=== PATIENT | male | born 1960 | race Caucasian/White ===

== ENCOUNTER 2019-12-23 08:06 | Outpatient (CLI) | payer OTHER, SELFPAY ==
--- NOTE | 2019-12-23 08:30 | CT_ITS ---
WS: [id number] CT CHEST TECHNIQUE: Noncontrast CT of the chest with coronal and sagittal reformatted images. CLINICAL INFORMATION: Shortness of breath COMPARISON: CT November 06, 2017 DLP: 1026.[address] scans at [facility] use at least one of these dose optimization techniques: automat ed exposure control; mA and/or kV adjustment per patient size (includes targeted exams where dose is matched to clinical indication); or iterative reconstruction. FINDINGS: Stable centrilobular emphysematous changes worse in the upper lobes. Previously described tree-in-bud infiltrates in the left lower lobe have resolved. Slight atelectasis in the right lower lobe. No milena picious pulmonary parenchymal abnormalities. No acute pulmonary infiltrates. No consolidation or pleu ral fluid. Aortic calcification. Coronary calcification. Gallbladder is contracted with cholelithiasis. Lobulati on gallbladder fundus may represents polyp or gallstone is unchanged. This could followed up with ult rasound. Stable left adrenal adenoma measuring 3.1 cm unchanged. Moderate thoracic kyphosis with anterior hypertrophic changes. CT/CT chest wo con [id number] IMPRESSION: 1. Centrilobular emphysematous changes. No suspicious pulmonary parenchymal ab normalities. 2. Left lower lobe infiltrates have resolved. 3. No mediastinal or hilar lymphadenopathy. 4. Gallbladder is contracted with cholelithiasis. Lobulation at the gallbladde r fundus may represent gallbladder polyp. This can be further evaluated with ul trasound. 5. Stable left adrenal lesion likely adenoma measuring 3.1 cm unchanged. 6. Vascular calcification including coronary.
== END 2019-12-23 08:07 | disposition home or self-care (01) ==
LOC: RADWPI 08:07
PROVIDERS: Family Provider Nurse Practitioner; PCP Nurse Practitioner; Visit Provider Internal Medicine Critical Care Medicine
DX: R06.02 Shortness of breath (principal); J43.8 Other emphysema; K80.11 Calculus of gallbladder with chronic cholecystitis with obstruction; I25.10 Atherosclerotic heart disease of native coronary artery without angina pectoris
CPT/HCPCS: 71250

== ENCOUNTER 2020-01-18 11:00 | Outpatient (CLI) | payer OTHER, SELFPAY | END 2020-01-18 11:01 | disposition home or self-care (01) | LOC: SLEEP 01-19 10:38 | PROVIDERS: Family Provider Nurse Practitioner; PCP Nurse Practitioner; Visit Provider Internal Medicine Critical Care Medicine | DX: J44.9 Chronic obstructive pulmonary disease, unspecified (principal) | CPT/HCPCS: 94762 ==

== ENCOUNTER 2020-01-30 13:12 | Outpatient (CLI) | payer OTHER, SELFPAY ==
--- NOTE | 2020-01-30 13:30 | USCV_ITS ---
Sam Henson Age: 59 Gender: M : 1960 Exam Date: 01/30/2020 13:33 Ordering Phys: Fredrick Arias MD Technologist: Ashley Lr Exam Location: [facility] [place] Indication: sob BP: 126 / 67 HR: 68 Rhythm: Sinus Technical Quality: Adequate MEASUREMENTS (Male / Female) Normal Values 2D ECHO LV Diastolic Diameter PLAX 4.4 cm 4.2 - 5.9 / 3.9 - 5.3 cm LV Systolic Diameter PLAX 3.3 cm LV Chamber Size 3.2 cm IVS Diastolic Thickness 1.2 cm 0.6 - 1.0 / 0.6 - 0.9 cm IVS Systolic Thickness 1.6 cm LVPW Diastolic Thickness 2.3 cm 0.6 - 1.0 / 0.6 - 0.9 cm LVPW Systolic Thickness 2.2 cm RV Chamber Size 3.0 cm LVOT Diameter 2.0 cm LV Ejection Fraction 2D Teich 51.0 % LV Ejection Fraction MOD 2C 36.1 % LV Ejection Fraction 2C AL 36.6 % LA Diameter 4.4 cm LA Width 2.9 cm LA Height 4.5 cm RA Width 2.5 cm RA Height 4.4 cm Aorta at Sinotubular Diameter 3.1 cm M-MODE LV Diastolic Diameter MM 5.8 cm 4.2 - 5.9 / 3.9 - 5.3 cm LV Systolic Diameter MM 4.1 cm LV Ejection Fraction MM Teich 57.0 % IVS Diastolic Thickness MM 0.9 cm 0.6 - 1.0 / 0.6 - 0.9 cm IVS Systolic Thickness MM 1.2 cm LVPW Diastolic Thickness MM 0.9 cm 0.6 - 1.0 / 0.6 - 0.9 cm LVPW Systolic Thickness MM 1.4 cm Aortic Annulus Diameter 3.8 cm LA Ao Ratio MM 1.1 MV E Point Septal Separation 0.7 cm DOPPLER AV Peak Velocity 131.0 cm/s LVOT Peak Velocity 99.0 cm/s AV Area Cont Eq vti 2.9 cm squared AV Area Cont Eq pk 2.4 cm squared MV Area PHT 3.3 cm squared Mitral E to A Ratio 1.4 MV E' Velocity 13.0 cm/s Mitral E to MV E' Ratio 5.7 Mitral E to LV E' Lateral Ratio 5.3 Mitral E to LV E' Septal Ratio 6.2 TR Peak Velocity 313.0 cm/s TR Peak Gradient 39.2 mmHg TV Peak E Velocity 66.0 cm/s Right Atrial Pressure 3.0 mmHg Pulmonary Artery Systolic Pressu 42.2 mmHg PV Peak Velocity 80.0 cm/s RV Acceleration Time 0.1 s RV Ejection Time 0.3 s RV AcT/ET 0.3 FINDINGS Left Ventricle Normal left ventricular size and systolic function, EF 60%. No regional wall motion abnormalities. Right Ventricle Possibly of normal RV size and ejection fraction Right Atrium Possibly of normal size Left Atrium Normal left atrial size. Mitral Valve No gross abnormalities noted Aortic Valve Thickened aortic valve. Tricuspid Valve Mild tricuspid valve regurgitation. Pulmonic Valve Pulmonic valve not well visualized. Pericardium No pericardial effusion. Aorta Normal size aortic root and proximal ascending aorta. CONCLUSIONS Normal left ventricular size and systolic function, EF 60%. No regional wall motion abnormalities. Thickened aortic valve. Mild tricuspid valve regurgitation. Mild pulmonary hypertension with an estimated pulmonary artery peak systolic pressure of 42 mmHg There is no pericardial effusion. There are no intracardiac masses. There are no prior echocardiogram studies to compare. Dr Sherif Orozco MD FACC (Electronically Signed) Final Date: 30 January 2020 18:32 S
== END 2020-01-30 13:13 | disposition home or self-care (01) ==
LOC: RAD 13:15
PROVIDERS: PCP Nurse Practitioner; Visit Provider Internal Medicine Critical Care Medicine
DX: R06.02 Shortness of breath (principal); I08.2 Rheumatic disorders of both aortic and tricuspid valves; I27.20 Pulmonary hypertension, unspecified
CPT/HCPCS: 93306

== ENCOUNTER 2020-02-03 07:17 | Outpatient (CLI) | payer OTHER, SELFPAY ==
[2020-02-03 08:31] VITALS: O2SAT 94
--- NOTE | 2020-02-03 12:35 | PFTS_ITS ---
Date of Study:02/03/20 Date of Dictation: MECHANICS: Forced vital capacity (FVC) is reduced. Forced expiratory volume in one second (FEV1) is reduced. FEV1/FVC is reduced. FLOW VOLUME LOOP: Reduced flow at all lung volumes with significant scooping. LUNG VOLUMES: Total lung capacity (TLC) is reduced. Residual volume (RV) is increased. DIFFUSING CAPACITY FOR CARBON MONOXIDE: Moderately reduced. INTERPRETATION: The pulmonary function tests are consistent with severe obstruction. There is also a component of restriction as evidenced by reduced total lung capacity. There is evidence of air trapping. Gas exchange (DLCO) is moderately reduced. MTDD
== END 2020-02-03 07:18 | disposition home or self-care (01) ==
LOC: RT 07:18
PROVIDERS: PCP Nurse Practitioner; Visit Provider Internal Medicine Critical Care Medicine
DX: J44.9 Chronic obstructive pulmonary disease, unspecified (principal)
CPT/HCPCS: 94060; 94726; 94729; J7611

== ENCOUNTER 2020-02-22 22:10 | Inpatient (IN) | payer OTHER, SELFPAY ==
[2020-02-22 22:21] VITALS: BMI 36.8
--- NOTE | 2020-02-22 22:23 | XR_ITS ---
WS: [id number] CHEST XRAY TECHNIQUE: Portable chest. CLINICAL INFORMATION: Chest pain COMPARISON: FINDINGS: Heart: Normal cardiac silhouette. Lungs: Subsegmental atelectasis right midlung. Chronic emphysematous changes. Bones: Normal visualized bony structures. XR/XR chest 1V portable [id number] IMPRESSION: Subsegmental atelectasis right midlung. No focal pneumonia.
--- NOTE | 2020-02-22 22:23 | ECG_ITS ---
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 Measurements Intervals [place] Rate: 82 P: 46 IN: 176 QRS: 9 QRSD: 89 T: 40 QT: 347 QTc: 407 Interpretive Statements SINUS RHYTHM No previous ECG available for comparison Electronically Signed On 02-24-2020 0:07:35 CDT by Sherif Orozco M.D. [id number]
[2020-02-22 22:37] VITALS: BP 131/84; PULSE 81; RESP 27; O2SAT 94
[2020-02-22 22:45] VITALS: BP 118/74; PULSE 82; RESP 20; O2SAT 93
[2020-02-22] MEDS: aspirin 325 mg Tablet PO (22:52)
[2020-02-22] MEDS: nitroglycerin 0.4 mg sublingual Tablet SUBLINGUAL (22:53)
[2020-02-22 22:57] LABS: Basophils # 0.1 10^3/uL (0.0-0.1); Basophils % 0.8 %; Eosinophils # 0.3 10^3/uL (0.0-0.8); Eosinophils % 3.4 %; Hematocrit 50.7 % (42.0-52.0); Hemoglobin 16.6 g/dL (11.7-16.6); Lymphocytes # 2.7 10^3/uL (0.8-4.8); Mean Corpuscular HGB Conc 32.7 g/dL (30.0-36.0); Mean Corpuscular Hemoglobin 31.3 pg (28.0-34.0); Mean Corpuscular Volume 95.7 fL (80-94); Monocytes # 1.2 10^3/uL (0.2-0.9); Monocytes % 13.3 %; Neutrophils # 4.71 10^3/uL (1.8-7.7); Neutrophils % 51.6 %; Nucleated Red Blood Cells % 0 %; Platelet Count 292 10^3/cmm (130-400); Red Cell Distribution Width 12.5 % (12.1-15.1); White Blood Count 9.1 10^3/uL (4.0-10.0)
[2020-02-22 23:00] VITALS: BP 111/80; PULSE 92; O2SAT 96
[2020-02-22 23:11] LABS: INR 0.96 (0.8-1.2)
[2020-02-22 23:15] VITALS: BP 152/99; PULSE 86; O2SAT 97
--- NOTE | 2020-02-22 23:26 | ED_ITS ---
HPI - Chest Pain General: Chief Complaint: Chest Pain Stated Complaint: HEART PROBLEMS Time Seen by Provider: 02/22/20 22:22 Source: patient Mode of arrival: ambulatory Limitations: no limitations History of Present Illness: HPI narrative: Mr. Henson is a nice 59-year-old male who comes in complaining of 2 issues. First is that his chest discomfort he feels a pressure in his chest. He has associated diaphoresis, shortness of breath with this. At times the discomfort will radiate up to his throat and jaws. Patient is currently undergoing a work-up by Dr. Orozco for palpitations. He had had a episode of 5 to 10 minutes of palpitations today. He is currently wearing a event monitor for this. Patient states his discomfort in his chest is very mild right now. He does not feel the palpitations. He gets lightheaded with them but does not have a syncopal spell. He is not tried anything for this to make it better or worse. He denies any other complaints or concerns. Associated symptoms: Reports palpitations; Deny abdominal pain, diaphoresis, dyspnea, fever(s), nausea, syncope or vomiting Review of Systems Const: Denies: fever(s), chills, body aches, fatigue, malaise or diaphoresis Eyes: Denies: change in vision, blurry vision, blind spots, photophobia, eye discharge or eye redness ENMT: Denies: throat pain, odynophagia, hoarseness, swelling of lips/tongue, oral sores, ear or mastoid pain, ear discharge, change in hearing or nasal discharge Card: Reports: chest pain, palpitations and lightheadedness; Denies: irregular heart rhythm, edema, syncope, pre-syncope, dyspnea on exertion or orthopnea Resp: Denies: dyspnea, productive cough, non-productive cough, wheezing, hemoptysis or chest congestion GI: Denies: abdominal pain, nausea, vomiting, hematemesis, coffee ground emesis, heartburn, diarrhea, constipation, GI cramping, hematochezia or melena : Denies: flank pain, dysuria, urinary frequency, urinary urgency or hematuria Musc: Denies: neck pain, back pain, extremity pain, extremity swelling, joint pain, joint swelling, joint redness, joint warmth or joint stiffness Skin/Breast: Denies: rash, pruritus, erythema, skin tenderness or jaundice Neuro: Denies: headache(s), numbness in extremities, weakness in extremities, sensory changes, lack of coordination, difficulty walking, dizziness, vertigo, confusion, Slurred speech present or seizure-like activity Dimitry/Lymph: Denies: easy bruising, easy bleeding, petechiae, purpura or enlarged lymph nodes All/Imm: Denies: urticaria, throat swelling, tongue swelling, facial swelling or acute wheezing PFSH ED PFSH: Medical History Atypical angina COPD (chronic obstructive pulmonary disease) HTN (hypertension) Obstructive sleep apnea Palpitations PND (post-nasal drip) Surgical History H/O hernia repair H/O knee surgery History of surgical removal of ganglion cyst Family History Father Cancer Mother Cancer Family/Other Stroke Grandmother Stroke Dementia Grandfather CAD (coronary artery disease) Social History Smoking and tobacco status: current every day smoker cigarettes Packs smoked per day: 0.5 Years cigarettes smoked: 40 [ Other cigarette details: Hx of 1 PPD x 25 Years ] Alcohol intake: never Lives independently: Yes Household members: spouse and family Marital status: Current occupational status: employed Current occupation: [employer] Current occupational exposures/hazards: No History of recent travel: No Current gender identity: Male Physical Exam Const: COMMON NORMALS: no acute distress, patient oriented x3, no limitations, healthy appearing and well nourished GENERAL APPEARANCE: cooperative, well kempt and well developed HENMT: COMMON NORMALS: normocephalic, atraumatic, external ears normal, EAC's normal and Normal external nose present HEAD & SCALP: normal to inspection, normocephalic and atraumatic FACE & SINUS: normal facial exam and face symmetric NOSE: Normal external nose present and Normal nares present EXTERNAL EAR: Yes external ears normal EXTERNAL AUDITORY CANAL: EAC's normal MOUTH: Normal oral and palatal mucosa present, lip normal and tongue normal Eye: COMMON NORMALS: Equal, round and reactive pupils present and conjunctivae normal GENERAL EYE: appearance normal, both eyes and all related structures ALIGNMENT: Yes alignment normal PERIORBITAL: periorbital findings normal EYELID: eyelids normal CONJUNCTIVA: Yes conjunctivae normal SCLERA: sclerae normal PUPIL: Yes Equal, round and reactive pupils present Neck/C-Spine: COMMON NORMALS: full ROM, no lymphadenopathy, supple, no meningeal signs and no JVD GENERAL: Yes normal visual inspection and Yes trachea midline Chest: COMMONS NORMALS: normal inspection of the chest and normal palpation of entire chest wall Resp: COMMON NORMALS: normal respiratory effort, No retractions and No use of accessory muscles EFFORT & INSPECTION: Yes able to speak in complete sentences and Yes symmetric chest movement AUSCULTATION: no crackles, no rales, no rhonchi and no wheezes Cardio: COMMON NORMALS: no JVD, regular rate, regular rhythm, S1 normal heart sound present and S2 normal heart sound present RATE: regular rate RHYTHM: regular rhythm HEART SOUNDS: S1 normal heart sound present, S2 normal heart sound present, no click, no gallops, no murmurs, no rubs and abnormal split S2 GI: COMMON NORMALS: Soft to palpation and No hepatosplenomegaly present PALPATION: Yes Soft to palpation, No Tenderness to palpation present (GI), No Guarding due to palpation present (GI), No Rigid due to palpation, Yes No hepatosplenomegaly present, No Hernia present, No Palpable mass present and No Pulsatile mass present : COMMON NORMALS: Yes no CVA tenderness BLADDER/KIDNEY EXAM: Yes no CVA tenderness Back/Pelvis: COMMON NORMALS: no CVA tenderness, thoracic and lumbar spine normal to inspection, no thoracic nor lumbar tenderness and thoraco-lumbar ROM normal Extremity: COMMON NORMALS: normal to inspection, full ROM, capillary refill normal, no joint enlargement, no clubbing, cyanosis or edema and no calf tenderness Neuro: COMMON NORMALS: patient oriented x3, CN's II-XII intact bilaterally, moves all extremities, no focal motor deficits and no sensory deficits noted MENINGEAL SIGNS: Yes no meningeal signs SPEECH: speech normal Psych: COMMON NORMALS: mental status grossly normal, Normal thought process present, cooperative, normal affect, speech normal and activity/motor behavior normal APPEARANCE: Yes well kempt SPEECH: Yes normal speech THOUGHT PROCESS: Normal thought process present Skin: COMMON NORMALS: no rashes or lesions noted, turgor normal, no jaundice, no petechiae and no mottling GENERAL SKIN EXAM: no rashes or lesions noted and turgor normal Course Vital Signs: Vital signs: Vital Signs Pulse Rate 74 02/23/20 01:59 Respiratory Rate 18 02/23/20 01:59 Blood Pressure 111/70 02/23/20 01:59 Pulse Oximetry 97 02/23/20 01:59 MDM - Chest Pain MDM Narrative: Medical decision making narrative: Patient had a 22-second run of ventricular tachycardia per his event monitor. I reviewed the case with Dr. Pizano and Ernesto agreed to admit and consult respectively. The patient is currently chest pain-free and Dr. Orozco hysterectomy to start amiodarone drip which I have done. Lab Data: Attestation: I reviewed the patient's lab results. Labs: Lab Results 02/22/20 02/22/20 02/22/20 Range/Units 22:20 22:33 22:33 WBC 9.1 (4.0-10.0) 10^3/ uL RBC 5.30 (4.1-5.3) 10^6/u L Hgb 16.6 (11.7-16.6) g/dL Hct 50.7 (42.0-52.0) % MCV 95.7 H (80-94) fL MCH 31.3 (28.0-34.0) pg MCHC 32.7 (30.0-36.0) g/dL RDW 12.5 (12.1-15.1) % Plt Count 292 (130-400) 10^3/c mm MPV 9.0 (7.4-10.4) fL Neut % (Auto) 51.6 % Lymph % (Auto) 30.0 % Simpson % (Auto) 13.3 % Eos % (Auto) 3.4 % Baso % (Auto) 0.8 % Neut # (Auto) 4.71 (1.8-7.7) 10^3/u L Lymph # (Auto) 2.7 (0.8-4.8) 10^3/u L Simpson # (Auto) 1.2 H (0.2-0.9) 10^3/u L Eos # (Auto) 0.3 (0.0-0.8) 10^3/u L Baso # (Auto) 0.1 (0.0-0.1) 10^3/u L Nucleated RBC % (a uto) 0 % Nucleated RBCs # 0.0 /100WBC PT 13.10 (10.5-13.3) SECO NDS INR 0.96 (0.8-1.2) Sodium (136-145) mmol/L Potassium (3.5-5.1) mmol/L Chloride (98-107) mmol/L Carbon Dioxide (22-29) mmol/L Anion Gap (5-19) BUN (8-23) mg/dL Creatinine (0.7-1.2) mg/dL GFR Calculation (90-130) mL/min Glucose (65-115) mg/dL Calculated Osmolal ity (285-295) mOsm/k g Calcium (8.5-10.5) mg/dL Magnesium (1.7-2.3) mg/dL Total Bilirubin (0.15-1.2) mg/dL AST (0-40) U/L ALT (0-41) U/L Alkaline Phosphata se (40-130) IU/L Troponin T Baselin e (0-15) ng/L Troponin T 120 Min [place] (0-15) ng/L Delta Troponin T (0-10) ABS# Total Protein (6.6-8.7) g/dL Albumin (3.5-5.2) g/dL Globulin (1.3-4.6) g/dL Lipase (13-60) U/L TSH (0.27-4.20) uIU/ mL Free T4 (0.82-1.77) ng/d L Urine Color Yellow (Yellow) Urine Appearance Clear (CLEAR) Urine pH 6 (5-7) Ur Specific Gravit y 1.020 (1.005-1.030) Urine Protein Neg (Negative) Urine Glucose (UA) Norm (Normal) Urine Ketones Negative (Negative) Urine Blood Neg (Negative) Urine Nitrate Negative (Negative) Urine Bilirubin Neg (NEGATIVE) Urine Urobilinogen Norm (Negative) mg/dL Ur Leukocyte Lam[place] Negative (Negative) Urine RBC Rare (0-2) /hpf Urine WBC Rare (0-5) /hpf Ur Squamous Epith Cells Rare (0-5) Urine Bacteria Trace (NONE) Urine Mucus 1+ 02/22/20 02/22/20 02/23/20 Range/Units 22:33 22:33 00:16 WBC (4.0-10.0) 10^3/ uL RBC (4.1-5.3) 10^6/u L Hgb (11.7-16.6) g/dL Hct (42.0-52.0) % MCV (80-94) fL MCH (28.0-34.0) pg MCHC (30.0-36.0) g/dL RDW (12.1-15.1) % Plt Count (130-400) 10^3/c mm MPV (7.4-10.4) fL Neut % (Auto) % Lymph % (Auto) % Simpson % (Auto) % Eos % (Auto) % Baso % (Auto) % Neut # (Auto) (1.8-7.7) 10^3/u L Lymph # (Auto) (0.8-4.8) 10^3/u L Simpson # (Auto) (0.2-0.9) 10^3/u L Eos # (Auto) (0.0-0.8) 10^3/u L Baso # (Auto) (0.0-0.1) 10^3/u L Nucleated RBC % (a uto) % Nucleated RBCs # /100WBC PT (10.5-13.3) SECO NDS INR (0.8-1.2) Sodium 141 (136-145) mmol/L Potassium 4.0 (3.5-5.1) mmol/L Chloride 102 (98-107) mmol/L Carbon Dioxide 27 (22-29) mmol/L Anion Gap 16.0 (5-19) BUN 13 (8-23) mg/dL Creatinine 0.7 (0.7-1.2) mg/dL GFR Calculation 115.0 (90-130) mL/min Glucose 114 (65-115) mg/dL Calculated Osmolal ity 289 (285-295) mOsm/k g Calcium 9.2 (8.5-10.5) mg/dL Magnesium 2.0 (1.7-2.3) mg/dL Total Bilirubin 0.4 (0.15-1.2) mg/dL AST 20 (0-40) U/L ALT 20 (0-41) U/L Alkaline Phosphata se 67 (40-130) IU/L Troponin T Baselin e 14 (0-15) ng/L Troponin T 120 Min [place] 13.35 (0-15) ng/L Delta Troponin T -0.65 L (0-10) ABS# Total Protein 7.0 (6.6-8.7) g/dL Albumin 4.5 (3.5-5.2) g/dL Globulin 2.5 (1.3-4.6) g/dL Lipase 44 (13-60) U/L TSH 1.30 (0.27-4.20) uIU/ mL Free T4 1.54 (0.82-1.77) ng/d L Urine Color (Yellow) Urine Appearance (CLEAR) Urine pH (5-7) Ur Specific Gravit y (1.005-1.030) Urine Protein (Negative) Urine Glucose (UA) (Normal) Urine Ketones (Negative) Urine Blood (Negative) Urine Nitrate (Negative) Urine Bilirubin (NEGATIVE) Urine Urobilinogen (Negative) mg/dL Ur Leukocyte [place] (Negative) Urine RBC (0-2) /hpf Urine WBC (0-5) /hpf Ur Squamous Epith Cells (0-5) Urine Bacteria (NONE) Urine Mucus Imaging Data^: CXR: My impression: No acute cardiopulmonary findings. EKG Data^: EKG 1: Attestation: I personally reviewed and interpreted this EKG as follows: EKG interpretation date: 02/22/20 EKG interpretation time: 22:36 Interpretation: Normal sinus rhythm at 82 beats a minute, no acute ST or T wave changes. 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
[2020-02-22 23:30] VITALS: BP 141/98; PULSE 77; RESP 25; O2SAT 97
[2020-02-22 23:33] LABS: Bacteria Urine TRACE; Bilirubin Urine Neg (NEGATIVE); Blood Urine Neg (Negative); Glucose Urine UA Norm (Normal); Ketones Urine Negative (Negative); Leukocyte Esterase Urine Negative (Negative); Mucus Urine 1+; Nitrate Urine Negative (Negative); Protein Urine Neg (Negative); RBC Urine RARE /hpf (0-2); Squamous Epithelial Cell Urine RARE (0-5); Urine Appearance Clear (CLEAR); Urine Color Yellow (Yellow); Urobilinogen Urine Norm (Negative); WBC Urine RARE /hpf (0-5); pH Urine 6 (5-7)
[2020-02-22] MEDS: nitroglycerin 1 gm/inch oint Pkt 1 INCH TOPICAL (23:36)
[2020-02-22 23:45] VITALS: BP 164/103; PULSE 91; RESP 22; O2SAT 94
[2020-02-22 23:46] LABS: Troponin(5th) Baseline 14 ng/L (0-15)
[2020-02-22 23:47] LABS: Alanine Aminotransferase 20 U/L (0-41); Albumin Level 4.5 g/dL (3.5-5.2); Alkaline Phosphatase 67 IU/L (40-130); Aspartate Amino Transferase 20 U/L (0-40); Blood Urea Nitrogen 13 mg/dL (8-23); Calcium 9.2 mg/dL (8.5-10.5); Carbon Dioxide 27 mmol/L (22-29); Chloride 102 mmol/L (98-107); Globulin 2.5 g/dL (1.3-4.6); Glucose 114 mg/dL (65-115); Lipase 44 U/L (13-60); Osmolality Calculated 289 mOsm/kg (285-295); Sodium 141 mmol/L (136-145); Total Bilirubin 0.4 mg/dL (0.15-1.2)
[2020-02-23] VITALS (54 sets, daily range): BP systolic 80–148; BP diastolic 37–98; PULSE 59–89; RESP 12–93; TEMP 35.3–37.1; O2SAT 3–98
[2020-02-23 00:13] LABS: Free T4 Free Thyroxine 1.54 ng/dL (0.82-1.77)
--- NOTE | 2020-02-23 00:23 | ECG_ITS ---
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 Measurements Intervals [place] Rate: 70 P: [place]: -1 QRS: 3 QRSD: 78 T: 30 QT: 362 QTc: 392 Interpretive Statements Sinus rhythm with frequent supraventricular ectopics/PACs ABNORMAL RHYTHM ECG No previous ECG available for comparison Electronically Signed On 02-24-2020 1:33:49 CDT by Sherif Orozco M.D. [id number]
[2020-02-23 00:36] LABS: Troponin 5 2HR 13.35 ng/L (0-15); Troponin 5 2HR Delta -0.65 ABS# (0-10)
--- NOTE | 2020-02-23 01:12 | PM.HP ---
Providers/Chief Complaint Primary Care Provider: SIRENA Erickson Chief Complaint: HEART PROBLEMS History of Present Illness Sam Henson is a 59 year old gentleman with COPD, obstructive sleep apnea, current smoker, HTN, episodes of chest pressure, fatigability on exertion, intermittent palpitations, has been following up with cardiology Dr. Orozco, they have been arranging for a stress test for him, although he has not had one yet. He is also been set up with an event monitor on Thursday. He reports having several episodes of palpitations during the past week, including 1 today. This reportedly on the monitor was noted to be a 22-second run of VT. he denies any current chest pain. He has had no syncope. He is noted in sinus rhythm on EKG here. Troponin baseline in 2-hour follow-up are normal. His electrolytes including potassium magnesium are normal. Thyroid function test normal. At home he takes metoprolol for hypertension. Given prolonged run of ventricular tachycardia his brim and crown presser Dr. Orozco requested observation in the hospital, initiation of amiodarone, and will see him tomorrow. Patient otherwise reports that he has been having chronic cough for months, and reports currently has been noticing productive sputum of yellow color. He reports he gets very easily dyspneic, now with even mild incline gradient. He reports he is not normally on oxygen during the day, however, does connect his CPAP at night to 2 L. He does report sometimes getting dyspneic during the day he puts on his CPAP/oxygen, and reports that this makes his symptoms better, even if it is just for a short time. He follows with Dr. Arias in office for his pulmonary problems. He understands that he needs to stop smoking, however, currently still smokes 1 pack/day. Review of Systems Const: Denies: fever(s), chills, body aches or malaise Eyes: Denies: change in vision or eye redness ENMT: Denies: throat pain, oral sores or ear or mastoid pain Card: Reports: palpitations, dyspnea on exertion and other (Intermittent episodes of chest pressure, sometimes with exertion, sometimes without specific trigger.); Denies: chest pain, edema, pre-syncope or orthopnea Resp: Reports: productive cough; Denies: dyspnea, change in phlegm color or hemoptysis GI: Denies: abdominal pain, nausea, vomiting, diarrhea, constipation, hematochezia or melena : Denies: flank pain, difficulty urinating, urinary frequency or hematuria Musc: Denies: back pain, joint swelling or joint redness Skin/Breast: Denies: rash, sores or new lesions Neuro: Denies: headache(s), numbness in extremities, weakness in extremities, dizziness, confusion or seizure-like activity Endo: Denies: polyuria or polydipsia Dimitry/Lymph: Denies: easy bleeding or purpura All/Imm: Denies: urticaria, throat swelling or tongue swelling Medications/Allergies Home Medications Medication Instructions Recorded Confirmed Last Taken Type lisinopril 10 1 tab PO DAILY 12/12/19 02/22/20 02/22/20 History mg-hydrochlorothiazide 12.5 mg tablet budesonide-formoterol HFA 160 2 puff INHALATION BID #10.2 gm 01/04/20 02/22/20 02/22/20 Rx mcg-4.5 mcg/actuation aerosol inhaler tiotropium bromide 18 mcg capsule 1 cap INHALATION DAILY #30 inh 01/04/20 02/22/20 02/22/20 Rx with inhalation device albuterol sulfate 2.5 mg INHALATION Q4H PRN #540 ml 01/25/20 02/22/20 02/22/20 Rx albuterol sulfate 90 mcg/actuation 2 puff INHALATION Q6H PRN #18 gm 01/25/20 02/22/20 02/22/20 Rx aerosol inhaler metoprolol tartrate 25 mg tablet 25 mg PO BID #180 tab 02/21/20 02/22/20 Unknown Rx Allergies Allergy/AdvReac Type Severity Reaction Status Date / Time ciprofloxacin Allergy ALGY-Hives Verified 12/27/19 16:16 PFSH Acute PFSH: Medical History Atypical angina COPD (chronic obstructive pulmonary disease) HTN (hypertension) Obstructive sleep apnea Palpitations PND (post-nasal drip) Surgical History H/O hernia repair H/O knee surgery History of surgical removal of ganglion cyst Family History Father Cancer Mother Cancer Family/Other Stroke Grandmother Stroke Dementia Grandfather CAD (coronary artery disease) Social History Smoking and tobacco status: current every day smoker cigarettes Packs smoked per day: 0.5 Years cigarettes smoked: 40 [ Other cigarette details: Hx of 1 PPD x 25 Years ] Alcohol intake: never Lives independently: Yes Household members: spouse and family Marital status: Current occupational status: employed Current occupation: [employer] Current occupational exposures/hazards: No History of recent travel: No Current gender identity: Male Vitals/I&O/Wt Last Vital Signs Pulse 77 02/23/20 00:45 Resp 25 H 02/23/20 00:45 BP 104/71 02/23/20 00:45 Pulse Ox 97 02/23/20 00:45 02/22/20 02/22/20 02/23/20 14:59 22:59 06:59 Intake Total 103 / 103 Balance 103 / 103 Weight last 48 hrs Weight 106.594 kg Physical Exam Const: COMMON NORMALS: no acute distress and patient oriented x3 NUTRITIONAL APPEARANCE: obese HENMT: COMMON NORMALS: oropharynx normal Neck/C-Spine: COMMON NORMALS: no JVD Resp: COMMON NORMALS: normal respiratory effort AUSCULTATION: wheezes and diminished lung sounds Cardio: COMMON NORMALS: no JVD, regular rhythm, S1 normal heart sound present, S2 normal heart sound present and No murmurs present (Cardio) RHYTHM: regular rhythm HEART SOUNDS: S1 normal heart sound present and S2 normal heart sound present GI: COMMON NORMALS: Normal to inspection, nondistended, normoactive bowel sounds present, Soft to palpation and non-tender PALPATION: Yes Soft to palpation Extremity: COMMON NORMALS: no joint enlargement and no pedal edema Neuro: COMMON NORMALS: patient oriented x3 and moves all extremities Skin: COMMON NORMALS: no rashes or lesions noted GENERAL SKIN EXAM: no rashes or lesions noted Data : 02/22/20 22:33 02/22/20 22:33 A&P Assessment and plan (1) Ventricular tachycardia: Reported brown of 22-second VT noted on security monitor. With recurrent episodes of palpitations. Pending evaluation by cardiology. Recommendation started on amiodarone drip. Continue metoprolol at this time. Electrolytes are normal including potassium, magnesium. Thyroid function is normal. He is having occasional chest pressure episodes, however, currently asymptomatic. First and 2-hour troponin are normal. EKG without signs of acute ischemia. Telemetry. Echocardiogram 01/29 with normal ejection fraction, noted mild pulmonary hypertension, peak systolic PA pressure 42 mmHg. With his recent episodes of worsening dyspnea on exertion, episodes of dyspnea during the day during which he gets relief from wearing CPAP with oxygen, may consider that he may be getting hypoxic episodes, possibly even triggering her his arrhythmia, and long-term may need to be set up with oxygen with exertion. This will need to be evaluated at discharge, to also assess response for treatment of COPD exacerbation. Status: Acute (2) Chest discomfort: Intermittent episodes of chest pressure, symptoms triggered by exertion, sometimes without specific trigger. Central, nonradiating. Reports has been working with cardiology and insurance to set up for stress testing. At this time he is not symptomatic. First into our troponin, and EKG without suggestion of acute ischemia. As mentioned above, at least in part this may also be secondary to his pulmonary disease, including COPD, possibly pulmonary hypertension. Also she is still current smoker, smoking 1 pack/day. Status: Acute (3) Dyspnea on exertion: With underlying COPD, with ROWDY, wearing nightly CPAP with 2 L of oxygen. He is also still a smoker. Suspected also underlying pulmonary hypertension. He follows with Dr. Arias in office. At this time no sign of acute ischemia, complete troponin EKG series. Discussed with him definitely would benefit from smoking cessation. We will treat COPD exacerbation at this time. On discharge would benefit from assessment for home O2, possibly with exertion. Status: Acute (4) COPD exacerbation: Acute exacerbation of COPD, with recently progressive dyspnea, especially on exertion, but also with chronic cough, intermittent, going on for months, recently productive of yellow sputum. We will go ahead and treat him for COPD exacerbation. Rocephin. Prednisone. Breathing treatments. Oxygen support. Status: Acute (5) Obstructive sleep apnea: Nightly CPAP and O2 2L Status: Acute Additional A&P Information Other chronic medical conditions. Attestations Medical Necessity Statement*: Admission of over 2 midnights is continued for assessment management of VTE, with intermittent episodes of chest pressure, as well as with COPD exacerbation, with chronic underlying lung disease, including COPD, ROWDY, possible pulmonary hypertension. Coding Level of Care Code Acute Metaphysician for Chg Fwd Diagnoses Ventricular tachycardia I47.2 Chest discomfort R07.89 Dyspnea on exertion R06.00 COPD exacerbation J44.1 Obstructive sleep apnea G47.33
--- NOTE | 2020-02-23 02:10 | PC.NURSE ---
Admit Note Arrived to floor from ER via gurney, ambulated to bed. Alert and oriented X 4. Breathing is even and non-labored on 2 L NC. Reports shortness of breath on exertion. Denies chest pain on admit. Sinus rhythm occasional pvc , rate 60's-70's. Amiodarone infusing on arrival to unit. Lungs clear throughout. Pt wearing 21 day halter monitor, reports it was placed thursday by Dr. Orozco office. Pt denies wanting to get into hospital gown. Oriented to room and call light.
[2020-02-23] MEDS: ipratropium-albuterol 3 mL Neb INHALATION ×4 (02:49→21:03)
[2020-02-23] MEDS: predniSONE 20 mg Tablet 40 MG PO ×2 (02:59→09:29)
--- NOTE | 2020-02-23 02:59 | PC.NURSE ---
Heparin Pt refused heparin injection. Pt educated on use,dosage, and adverse effects. Wants to talk to Dr. Orozco in AM regarding medication.
[2020-02-23] MEDS: sodium chloride 0.9% 1,000 ML 100 ML IV (03:00)
[2020-02-23] MEDS: cefTRIAXone 1,000 MG in sodium chloride 0.9% (plus) 50 ML 100 MG IV (03:01)
--- NOTE | 2020-02-23 04:23 | ECG_ITS ---
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 Measurements Intervals [place] Rate: 64 P: 55 ID: [id number] QRS: 18 QRSD: 87 T: 42 QT: 407 QTc: 421 Interpretive Statements SINUS RHYTHM Compared to ECG 02/23/2020 01:57:14 Atrial fibrillation no longer present Electronically Signed On 02-24-2020 1:34:42 CDT by Sherif Orozco M.D. [email or web address] centerHydrelismer[facility] health st[facility] hospitalThe Football Social Club/store/[id number]
[2020-02-23 05:10] LABS: Basophils # 0.1 10^3/uL (0.0-0.1); Basophils % 0.7 %; Eosinophils # 0.3 10^3/uL (0.0-0.8); Hematocrit 46.3 % (42.0-52.0); Lymphocytes # 2.1 10^3/uL (0.8-4.8); Lymphocytes % 24.4 %; Mean Corpuscular HGB Conc 32.4 g/dL (30.0-36.0); Mean Corpuscular Hemoglobin 31.8 pg (28.0-34.0); Mean Corpuscular Volume 98.1 fL (80-94); Mean Platelet Volume 8.9 fL (7.4-10.4); Monocytes % 11.5 %; Neutrophils # 5.01 10^3/uL (1.8-7.7); Neutrophils % 58.4 %; Nucleated Red Blood Cells % 0 %; Platelet Count 255 10^3/cmm (130-400); Red Blood Count 4.72 10^6/uL (4.1-5.3); Red Cell Distribution Width 12.6 % (12.1-15.1); White Blood Count 8.6 10^3/uL (4.0-10.0)
[2020-02-23 05:31] LABS: Estmated Average Glucose 114; Hemoglobin A1C 5.6 % (4.0-6.0)
[2020-02-23 05:32] LABS: Anion Gap 12.9 (5-19); Blood Urea Nitrogen 16 mg/dL (8-23); Calcium 8.8 mg/dL (8.5-10.5); Carbon Dioxide 27 mmol/L (22-29); Chloride 102 mmol/L (98-107); Glucose 104 mg/dL (65-115); Osmolality Calculated 283 mOsm/kg (285-295); Potassium 3.9 mmol/L (3.5-5.1); Sodium 138 mmol/L (136-145)
[2020-02-23 05:35] LABS: Chol HDL Ratio 5.09 mg/dL (1.0-5.00); Cholesterol 168 mg/dL (0-200); HDL Cholesterol 33 mg/dL (60-100); LDL Cholesterol Calculated 119 mg/dL (50-129); Triglycerides 81 mg/dL (0-150); VLDL Cholestrol Calculation 16 mg/dL (0-30)
[2020-02-23 06:09] LABS: Troponin 5 6HR 14.13 ng/L (0-15); Troponin 5 6HR Delta 0.13 ng/L (0-12)
--- NOTE | 2020-02-23 08:27 | P.CONIM_ITS ---
Providers/Reason For Consult Consulting Physican/Specialty*: Usha Orozco MD/cardiology Reason for Consult*: Patient with ventricular tachycardia Attending Physician: Sridhar Tadeo MD Primary Care Provider: SIRENA Erickson History of Present Illness History of Present Illness Sam Henson is a 59 year old male, I sent to the hospital through the emergency room, where he was advised to come based on an event monitor finding of sustained ventricular tachycardia. This patient with a history of smoking abuse and possible COPD has been having episodes of palpitations for the last 3 or 4 months. His palpitations usually last away from few seconds to few minutes and then goes away by itself. He also was having a cough and shortness of breath during this time. He is being followed by the pulmonary service for this. He was seen by me in the office for the complaints of palpitation and dizziness. At that time, he was placed on an event monitor. He was found to have several episodes of nonsustained ventricular tachycardia on the event monitor. Yesterday afternoon around 2:50 PM, he had an episode of ventricular tachycardia lasting for 22 seconds, ventricular rate of 208/min, cycle length of 260 ms. According the patient, he was feeling somewhat woozy at that time. His symptoms subsided spontaneously. He did not have any syncopal episode. No chest pain. He had some tight feeling in the chest, radiated to the neck at that time. Whenever he has the palpitations, he has a palpitation, lasting for few seconds, he experiences tight feeling in the upper part of the chest and in the neck. He never had any syncopal episodes with this. But he had several episodes of dizziness/near syncope. He was tested for COVID and was found to be negative. Apparently he has been having a prolonged cough for the last few months. No hemoptysis. He has a dry cough. No other specific complaints. Review of Systems Narrative: CONSTITUTIONAL: No fever or chills. EYES: No blurring of vision or other visual disturbances lately. ENT: No hoarseness of voice, auditory disturbances or sore throat. CARDIOVASCULAR: As mentioned above. RESPIRATORY: Cough and shortness of breath as mentioned above GASTROINTESTINAL: No hematemesis or melena. GENITOURINARY: No dysuria or hematuria. INTEGUMENTARY: No skin rashes or history of skin cancer. NEURO: Occasional episodes of dizziness PSYCHIATRIC: No history of psychosis or major depression. HEMATOLOGIC: No bleeding disorders or significant anemia. ENDOCRINE: No history of polyuria or polydipsia. MUSCULOSKELETAL: No recent joint pain or swelling. ALLERGY/IMMUNOLOGY: As mentioned above. Meds/Allergies Home Medications and Allergies Home Medications Medication Instructions Recorded Confirmed Last Taken Type lisinopril 10 1 tab PO DAILY 12/12/19 02/22/20 02/22/20 History mg-hydrochlorothiazide 12.5 mg tablet budesonide-formoterol HFA 160 2 puff INHALATION BID #10.2 gm 01/04/20 02/22/20 02/22/20 Rx mcg-4.5 mcg/actuation aerosol inhaler tiotropium bromide 18 mcg capsule 1 cap INHALATION DAILY #30 inh 01/04/20 02/22/20 02/22/20 Rx with inhalation device albuterol sulfate 2.5 mg INHALATION Q4H PRN #540 ml 01/25/20 02/22/20 02/22/20 Rx albuterol sulfate 90 mcg/actuation 2 puff INHALATION Q6H PRN #18 gm 01/25/20 02/22/20 02/22/20 Rx aerosol inhaler metoprolol tartrate 25 mg tablet 25 mg PO BID #180 tab 02/21/20 02/22/20 Unknown Rx Allergies Allergy/AdvReac Type Severity Reaction Status Date / Time ciprofloxacin Allergy ALGY-Hives Verified 12/27/19 16:16 Current Medications Current Medications Generic Name Dose Route Start Last Admin Trade Name Freq PRN Reason Stop Dose Admin Albuterol/Ipratropium 3 ml 02/23/20 03:00 02/23/20 02:49 Duoneb INHALATION 3 ml Q6H.RESPIRATORY RUY Administration Heparin Sodium (Beef Lung) 5,000 unit 02/23/20 02:00 02/23/20 03:01 Heparin SUBCUT Not Given Q8H RUY Amiodarone HCl 900 mg/ 518 mls @ 0 mls/hr 02/23/20 00:15 02/23/20 01:25 Dextrose/ IV Miscellaneous IV 1 mg/min Supplies .Q0M RUY 34.5 mls/hr Administration Protocol Per Protocol Sodium Chloride 1,000 mls @ 100 mls/hr 02/23/20 01:45 02/23/20 03:00 Sodium Chloride 0.9% IV 100 mls/hr .Q10H RUY Administration Ceftriaxone Sodium 1,000 mg/ 50 mls @ 100 mls/hr 02/23/20 02:15 02/23/20 03:01 Sodium Chloride IV 100 mls/hr Q24H RUY Administration Protocol Prednisone 40 mg 02/23/20 01:45 02/23/20 02:59 Prednisone PO 40 mg DAILY RUY Administration PFSH Acute PFSH: Medical History Atypical angina COPD (chronic obstructive pulmonary disease) HTN (hypertension) Obstructive sleep apnea Palpitations PND (post-nasal drip) Sustained ventricular tachycardia Surgical History H/O hernia repair H/O knee surgery History of surgical removal of ganglion cyst Family History Father Cancer Mother Cancer Family/Other Stroke Grandmother Stroke Dementia Grandfather CAD (coronary artery disease) Social History Smoking and tobacco status: current every day smoker cigarettes Packs smoked per day: 0.5 Years cigarettes smoked: 40 [ Other cigarette details: Hx of 1 PPD x 25 Years ] Alcohol intake: never Lives independently: Yes Household members: spouse and family Marital status: Current occupational status: employed Current occupation: [employer] Current occupational exposures/hazards: No History of recent travel: No Current gender identity: Male Vitals/I&O/Wt Last Vital Signs Temp 97.8 F 02/23/20 02:30 Pulse 66 02/23/20 04:15 Resp 21 H 02/23/20 04:15 BP 90/52 02/23/20 04:15 Pulse Ox 96 02/23/20 04:15 02/22/20 02/23/20 02/23/20 22:59 06:59 14:59 Intake Total 103 / 103 Balance 103 / 103 Weight last 48 hrs Weight 242 lb 4.8 oz Weight 235 lb Physical Exam Narrative: EXAM NARRATIVE: GENERAL: The patient is alert and oriented times three. Not in any acute distress. [] HEENT: No significant pallor, icterus or lymphadenopathy.Oral cavity: There are no mucous membrane lesions. Fundus is not visualized NECK: Trachea appears to be central. No masses noted. No JVD or thyromegaly appreciated. RESPIRATORY: Chest is symmetrical. No intercostals muscle retraction or any accessory muscle activation. There is no chest wall tenderness. Breath sounds are heard bilaterally. No rales or rhonchi heard. No evidence of any consolidation. [] BREASTS: Deferred. [] HEART: The heart sounds are normal. No S3 or S4. Short systolic murmur at the left sternal border. No diastolic murmurs. No pericardial rub. ABDOMEN: No vessel pulsations or distention. No tenderness. No organomegaly appreciated. Bowel sounds are normally heard. [] : Deferred. [] RECTAL: Deferred. [] LYMPHATIC: No lymphadenopathy noted in the neck or groin. [] EXTREMITIES: No edema or cyanosis. No clubbing. Peripheral pulses are palpated in fairly good volume and amplitude MUSCULOSKELETAL: No acute joint deformities or swelling SKIN: There are no significant rashes or ecchymosis NEUROPSYCHIATRIC: The patient is alert and oriented x3. Appears to be in a good mood. No tremors or rigidity noted. [] Data Labs: Other Labs: Laboratory Last Values WBC 8.6 10^3/uL (4.0- 10.0) 02/23/20 04:35 RBC 4.72 10^6/uL (4.1 -5.3) 02/23/20 04:35 Hgb 15.0 g/dL (11.7-1 6.6) 02/23/20 04:35 Hct 46.3 % (42.0-52.0 ) 02/23/20 04:35 MCV 98.1 fL (80-94) H 02/23/20 04:35 MCH 31.8 pg (28.0-34. 0) 02/23/20 04:35 MCHC 32.4 g/dL (30.0-3 6.0) 02/23/20 04:35 RDW 12.6 % (12.1-15.1 ) 02/23/20 04:35 Plt Count 255 10^3/cmm (130 -400) 02/23/20 04:35 MPV 8.9 fL (7.4-10.4) 02/23/20 04:35 Neut % (Auto) 58.4 % 02/23/20 04:35 Lymph % (Auto) 24.4 % 02/23/20 04:35 Bledsoe % (Auto) 11.5 % 02/23/20 04:35 Eos % (Auto) 4.0 % 02/23/20 04:35 Baso % (Auto) 0.7 % 02/23/20 04:35 Neut # (Auto) 5.01 10^3/uL (1.8 -7.7) 02/23/20 04:35 Lymph # (Auto) 2.1 10^3/uL (0.8- 4.8) 02/23/20 04:35 Bledsoe # (Auto) 1.0 10^3/uL (0.2- 0.9) H 02/23/20 04:35 Eos # (Auto) 0.3 10^3/uL (0.0- 0.8) 02/23/20 04:35 Baso # (Auto) 0.1 10^3/uL (0.0- 0.1) 02/23/20 04:35 Nucleated RBC % (a uto) 0 % 02/23/20 04:35 Nucleated RBCs # 0.0 /100WBC 02/23/20 04:35 PT 13.10 SECONDS (10 .5-13.3) 02/22/20 22:33 INR 0.96 (0.8-1.2) 02/22/20 22:33 Sodium 138 mmol/L (136-1 45) 02/23/20 04:35 Potassium 3.9 mmol/L (3.5-5 .1) 02/23/20 04:35 Chloride 102 mmol/L (98-10 7) 02/23/20 04:35 Carbon Dioxide 27 mmol/L (22-29) 02/23/20 04:35 Anion Gap 12.9 (5-19) 02/23/20 04:35 BUN 16 mg/dL (8-23) 02/23/20 04:35 Creatinine 0.7 mg/dL (0.7-1. 2) 02/23/20 04:35 GFR Calculation 115.0 mL/min (90- 130) 02/23/20 04:35 Glucose 104 mg/dL (65-115 ) 02/23/20 04:35 Estimat Average Gl ucose 114 02/23/20 04:35 Hemoglobin A1c 5.6 % (4.0-6.0) 02/23/20 04:35 Calculated Osmolal ity 283 mOsm/kg (285- 295) L 02/23/20 04:35 Calcium 8.8 mg/dL (8.5-10 .5) 02/23/20 04:35 Magnesium 2.0 mg/dL (1.7-2. 3) 02/22/20 22:33 Total Bilirubin 0.4 mg/dL (0.15-1 .2) 02/22/20 22:33 AST 20 U/L (0-40) 02/22/20 22:33 ALT 20 U/L (0-41) 02/22/20 22:33 Alkaline Phosphata se 67 IU/L (40-130) 02/22/20 22:33 Troponin T Baselin e 14 ng/L (0-15) 02/22/20 22:33 Troponin T 120 [address] [place] 13.35 ng/L (0-15) 02/23/20 00:16 Delta Troponin T -0.65 ABS# (0-10) L 02/23/20 00:16 Troponin T Hi Sens 6Hr 14.13 ng/L (0-15) 02/23/20 04:35 Troponin T Hi Sens 6Hr Delta 0.13 ng/L (0-12) 02/23/20 04:35 Total Protein 7.0 g/dL (6.6-8.7 ) 02/22/20 22:33 Albumin 4.5 g/dL (3.5-5.2 ) 02/22/20 22:33 Globulin 2.5 g/dL (1.3-4.6 ) 02/22/20 22:33 Triglycerides 81 mg/dL (0-150) 02/23/20 04:35 Cholesterol 168 mg/dL (0-200) 02/23/20 04:35 LDL Cholesterol, C alc 119 mg/dL (50-129 ) 02/23/20 04:35 Total VLDL Cholest garcia 16 mg/dL (0-30) 02/23/20 04:35 HDL Cholesterol 33 mg/dL (60-100) L 02/23/20 04:35 Cholesterol/HDL Ra cody 5.09 mg/dL (1.0-5 .00) H 02/23/20 04:35 Lipase 44 U/L (13-60) 02/22/20 22:33 TSH 1.30 uIU/mL (0.27 -4.20) 02/22/20 22:33 Free T4 1.54 ng/dL (0.82- 1.77) 02/22/20 22:33 Urine Color Yellow (Yellow) 02/22/20 22:20 Urine Appearance Clear (CLEAR) 02/22/20 22:20 Urine pH 6 (5-7) 02/22/20 22:20 Ur Specific Gravit y 1.020 (1.005-1.0 30) 02/22/20 22:20 Urine Protein Neg (Negative) 02/22/20 22:20 Urine Glucose (UA) Norm (Normal) 02/22/20 22:20 Urine Ketones Negative (Negati ve) 02/22/20 22:20 Urine Blood Neg (Negative) 02/22/20 22:20 Urine Nitrate Negative (Negati ve) 02/22/20 22:20 Urine Bilirubin Neg (NEGATIVE) 02/22/20 22:20 Urine Urobilinogen Norm mg/dL (Negat reynaldo) 02/22/20 22:20 Ur Leukocyte Lamar ase Negative (Negati ve) 02/22/20 22:20 Urine RBC Rare /hpf (0-2) 02/22/20 22:20 Urine WBC Rare /hpf (0-5) 02/22/20 22:20 Ur Squamous Epith Cells Rare (0-5) 02/22/20 22:20 Urine Bacteria Trace (NONE) 02/22/20 22:20 Urine Mucus 1+ 02/22/20 22:20 Imaging^: Echo: I personally reviewed and interpreted this imaging study as follows: My impression: Echocardiogram on 01/30/2020 revealed Normal left ventricular size and systolic function, EF 60%. No regional wall motion abnormalities. Thickened aortic valve. Mild tricuspid valve regurgitation. Mild pulmonary hypertension with an estimated pulmonary artery peak systolic pressure of 42 mmHg There is no pericardial effusion. There are no intracardiac masses. CT Chest: My impression: CT of the chest . Centrilobular emphysematous changes. No suspicious pulmonary parenchymal abnormalities. 2. Left lower lobe infiltrates have resolved. 3. No mediastinal or hilar lymphadenopathy. 4. Gallbladder is contracted with cholelithiasis. Lobulation at the gallbladder fundus may represent gallbladder polyp. This can be further evaluated with ultrasound. 5. Stable left adrenal lesion likely adenoma measuring 3.1 cm unchanged. 6. Vascular calcification including coronary. EKG^: EKG 1: I personally reviewed and interpreted this EKG as follows: My Interpretation: The EKG showed a normal sinus rhythm with early repolarization changes. No acute ST-T changes. A&P Assessment and plan (1) Sustained ventricular tachycardia: Patient was started on IV amiodarone. Once the initial 1 g is finished, he may be started on p.o. amiodarone 400 mg twice daily. He may continue on other medications as it is. Based on his clinical progress, further recommendations will be made Status: Acute (2) Atypical angina: His chest symptoms, could be related to the cardiac arrhythmia. Underlying coronary ischemia causing this also is a consideration. This needs to be further evaluated. We may go ahead and schedule the patient for a myocardial perfusion imaging namely exercise/sestamibi/sestamibi stress test. After reviewing the test results, further recommendations will be made. Status: Acute (3) Shortness of breath: This could be related to the COPD/overweight. Possibility of coronary ischemia causing this cannot be excluded. After reviewing the myocardial perfusion imaging, further recommendations will be made. Status: Acute Additional A&P Information Based on the patient's clinical response and the results of the above medications, further recommendations will be made. Consult Attestations Other Attestations: Other Attestations: Patient requires continued hospital stay for close monitoring and further management Coding Level of Care Code Acute Sprayer Operator for [facility] F[facility] Diagnoses Sustained ventricular tachycardia I47.2 Atypical angina I20.8 Shortness of breath R06.02
[2020-02-23] MEDS: metoprolol tartrate 25 mg Tablet PO ×2 (09:29→17:45)
--- NOTE | 2020-02-23 11:16 | P.PN_ITS ---
Subjective Subjective: Interval history: Admitted overnight and H&P noted. Patient has not had any further VT since admission. On examination lying comfortably in bed. Denies of having any, vomiting, headache. Patient states he has been having recurrent palpitations for last 7 to 10 days along with dyspnea on exertion along with chest pressure radiating to his neck. Vitals/I&O/Wt Last Vital Signs Temp 98.7 F 02/23/20 05:15 Pulse 72 02/23/20 09:37 Resp 20 H 02/23/20 09:30 BP 116/70 02/23/20 09:30 Pulse Ox 92 02/23/20 09:30 02/22/20 02/23/20 02/23/20 22:59 06:59 14:59 Intake Total 103 / 103 240 / 240 Output Total 500 / 500 Balance 103 / 103 -260 / -260 Weight last 48 hrs Weight 109.905 kg Weight 106.594 kg Physical Exam Narrative: EXAM NARRATIVE: General: No acute distress, AO x3, morbidly obese HEENT: PERRLA, pupils bilaterally equal and reactive Chest: Bilateral bronchial breath sounds no added sounds, equal good air entry bilaterally CVS: S1-S2 regular, no murmurs, no tachycardia, no gallops, no rubs Abdomen: Soft, nontender, no organomegaly, bowel sounds present Neuro: No focal deficits, no facial deformity, AO x3, power 5/5 in all limbs Data : 02/23/20 04:35 02/23/20 04:35 A&P Assessment and plan (1) Ventricular tachycardia: Status: Acute (2) Chest discomfort: Status: Acute (3) Dyspnea on exertion: Status: Acute (4) COPD exacerbation: Status: Acute (5) Obstructive sleep apnea: Nightly CPAP and O2 2L Status: Acute (6) HTN (hypertension): Status: Acute Qualifiers: Hypertension type: essential hypertension Qualified Code(s): I10 - Essential (primary) hypertension Additional A&P Information Ventricular tachycardia: Reported to have 22-second VT on site monitor. Patient has had multiple episodes of palpitations last couple of days. Overnight started on amiodarone drip. We will continue to finish the protocol for amiodarone which will finish at around 7 PM tonight. After that start on amiodarone 400 mg twice daily. Continue with metoprolol 25 mg twice daily. Patient recently had which showed EF of 60% without regional wall motion abnormality and was negative for any structural normality. Mild pulmonary hypertension with PASP of 42 mmHg. Patient's electrolyte has been within normal limits. Keep magnesium over 2.5 and potassium around 4. Patient's troponin trend has been stable. Case discussed with Dr. Orozco. We will keep n.p.o. after midnight and do stress test tomorrow morning to rule out possible ischemia. COPD/obstructive sleep apnea: Recent CT scan consistent with emphysema. Recent PFT consistent with FEV of 36% Continue CPAP overnight. Oxygen supplementation keeping saturation over 92%. Continue with budesonide and DuoNeb's. Patient started on 40 mg prednisone daily last night. We will continue to finish a 5-day course. Patient would most likely require home O2 evaluation prior to discharge. Hypertension: Blood pressure stable. Target blood pressure less than 140/90 mmHg. At home patient is on lisinopril hydrochlorothiazide combination 10/12.5 mg, metoprolol 25 mg twice daily. Continue metoprolol for now. Cardiac diet. Full code. Lovenox for DVT prophylaxis N.p.o. after midnight. Attestations Medical Necessity Statement*: Ventricular tachycardia. Patient needs further admission for completion of amiodarone drip and evaluation for reason for VT Time Spent in Patient Care: Greater than 35 minutes (>than 50% of time spent in counselling and/or direct pt care on unit) . Coding Level of Care Code Acute Architectural Sales Consultant for g Fwd Diagnoses Ventricular tachycardia I47.2 Chest discomfort R07.89 Dyspnea on exertion R06.00 COPD exacerbation J44.1 Obstructive sleep apnea G47.33 HTN (hypertension) I10 Hypertension type: essential hypertension
[2020-02-23] MEDS: amiodarone 200 mg Tablet 400 MG PO (19:35)
[2020-02-24] VITALS: BP 124/78; PULSE 78; RESP 22; TEMP 36.4; O2SAT 95
--- NOTE | 2020-02-24 | NMCV_ITS ---
NM ck perf SPECT r/s* [id number] Sam Henson Age: 59 Gender: M : 1960 Exam Date: 02/24/2020 07:02 Ordering Phys: Sridhar Tadeo MD Technologist: LARISA Melendrez Exam Location: [facility] Indications: Ectopy STRESS TEST [facility] IMAGE PROTOCOL Rest/Stress 1 Lexiscan Day Radiopharmaceutical Dose (mCi) Administration Site Administered by Rest: Tc-99m 10.9 IV LARISA Melendrez Sestamibi Stress:Tc-99m 33.0 IV LARISA Melendrez Sestamibi Rest: 24-Feb-2020 60 Discovery 630 Stress: 24-Feb-2020 45 Discovery 630 0.4mg Lexiscan. Images obtained in supine and prone position. SPECT RESULTS Technical Quality: Good Raw Data Analysis: Soft tissue attenuation Image Corrections: No attenuation or motion correction applied Summed Stress Score: 2 Summed Rest Score: 0 Summed Difference Score: 2 PERFUSION FINDINGS A small area of decreased tracer uptake was noted in the apical lateral region, with diffuse reversibility. FUNCTIONAL RESULTS (calculated via Gated SPECT) Stress Image LV EF (%): 47 Stress EDV (mL):112 TID: 1.31 Stress ESV (mL):59 FUNCTIONAL FINDINGS: The segmental wall motion analysis revealed mild diffuse hypokinesia left ventricle. IMPRESSIONS 1. Myocardial perfusion imaging revealing a small area of reversible defect in the apical lateral region, suggestive of ischemia in the distribution of the left circumflex artery. 2. Slightly diminished LV ejection fraction of 47%. 3. LV wall motion analysis revealing mild diffuse hypokinesia left ventricle. 4. Mildly dilated LV cavity with an end-systolic volume of 59 mL. 5. Elevated transient ischemic dilatation ratio of 1.31, may suggest endocardial ischemia. No similar previous studies are available for comparison Dr Sherif Orozco MD [facility] (Electronically Signed) Final Date: 24 February 2020 10:20 S
[2020-02-24] MEDS: heparin 5,000 unit/mL INJ 1 mL 5000 UNIT SUBCUT ×2 (02:54→10:08)
[2020-02-24 04:00] VITALS: BP 120/70; PULSE 70; RESP 21; TEMP 36.4; O2SAT 94
[2020-02-24 05:52] LABS: Basophils % 0.1 %; Eosinophils % 0.1 %; Lymphocytes # 1.8 10^3/uL (0.8-4.8); Lymphocytes % 12.2 %; Mean Corpuscular HGB Conc 31.9 g/dL (30.0-36.0); Mean Corpuscular Hemoglobin 30.8 pg (28.0-34.0); Mean Corpuscular Volume 96.5 fL (80-94); Mean Platelet Volume 9.2 fL (7.4-10.4); Monocytes # 1.4 10^3/uL (0.2-0.9); Monocytes % 9.5 %; Neutrophils # 11.52 10^3/uL (1.8-7.7); Neutrophils % 77.4 %; Nucleated Red Blood Cells % 0 %; Platelet Count 264 10^3/cmm (130-400); Red Blood Count 4.87 10^6/uL (4.1-5.3); Red Cell Distribution Width 12.5 % (12.1-15.1); White Blood Count 14.9 10^3/uL (4.0-10.0)
[2020-02-24 06:21] LABS: Alanine Aminotransferase 15 U/L (0-41); Albumin Level 3.9 g/dL (3.5-5.2); Alkaline Phosphatase 52 IU/L (40-130); Anion Gap 11.7 (5-19); Aspartate Amino Transferase 16 U/L (0-40); Blood Urea Nitrogen 14 mg/dL (8-23); Calcium 8.9 mg/dL (8.5-10.5); Carbon Dioxide 26 mmol/L (22-29); Chloride 105 mmol/L (98-107); Globulin 2.3 g/dL (1.3-4.6); Glomerular Filtration Rate 137.4 mL/min (90-130); Glucose 147 mg/dL (65-115); Osmolality Calculated 287 mOsm/kg (285-295); Potassium 3.7 mmol/L (3.5-5.1); Sodium 139 mmol/L (136-145); Total Bilirubin 0.4 mg/dL (0.15-1.2); Total Protein 6.2 g/dL (6.6-8.7)
--- NOTE | 2020-02-24 08:00 | ECG_ITS ---
[facility] Test Date: 2020-02-24 Pat Name: Sam Henson Department: Room: 106 Gender: Male Pan Shaker: : 1960 Requested By: Sridhar Tadeo Order Number: [id number] Jorge Alberto MD: Sherif Orozco M.D. Interpretive Statements NAME OF STUDY: LEXISCAN SESTAMIBI STRESS TEST INDICATION: Ventricular Tachycardia PROCEDURE: At the baseline, the EKG revealed sinus bradycardia with a normal ST-T's. Heart rate of 58 bpm. The baseline blood pressure was 123/73 mm Hg with a heart rate of 62 beats/min. Lexiscan was infused over a period of 20 seconds. A total of 0.4 milligrams of Lexiscan was infused. The stress phase was continued for a total of 5 minutes. Heart rate at the end of the stress phase was 75 with a blood pressure 123/70. The EKG at the peak infusion revealed no significant changes. Sestamibi was injected 20 seconds after the Lexiscan infusion. Blood pressure at the end of the recovery phase was 127/71 with a heart rate of 72 per minute. CONCLUSION: 1. No significant EKG changes with the LexiScan infusion 2. No LexiScan induced chest pain or cardiac arrhythmia 3. Normal blood pressure and heart rate response 4. Sestamibi/sestamibi perfusion scan pending; see separate report. Electronically Signed On 02-24-2020 10:24:26 CDT by Sherif Orozco M.D. [id number]
--- NOTE | 2020-02-24 08:11 | SUR.PREOP ---
Patient reports no pain or discomfort prior to the start of the procedure.
[2020-02-24] MEDS: regadenoson 0.4 Mg/5 ml Syringe IVP (08:13)
[2020-02-24] MEDS: aminophylline 25 mg/mL SDV 10 mL IVP (08:23)
[2020-02-24 08:30] VITALS: BP 129/68; PULSE 65
--- NOTE | 2020-02-24 09:15 | PM.PN ---
Subjective Subjective: Interval history: The patient is feeling okay. He had the myocardial perfusion imaging today. He was found to have a small area of reversible defect in the apical lateral wall region. He also was found elevated transient ischemic dilatation index of 1.3. There was mild diffuse hypokinesia left ventricle. Ejection fraction around 47%. Patient denies any chest pain. He has some amount of dyspnea on exertion. No orthopnea. No fever or chills. Medications: Reviewed: Yes Medication Review Details: Current Medications Acetaminophen (Tylenol) 650 mg PO Q6H PRN PRN Reason: Mild/Mod Pain Or Temp >/= 101 Albuterol/Ipratropium (Duoneb) 3 ml INHALATION Q6H PRN PRN Reason: SHORTNESS OF BREATH Albuterol/Ipratropium (Duoneb) 3 ml INHALATION Q6H.[facility] Last Admin: 02/24/20 09:00 Dose: Not Given Documented by: Aminophylline (Aminophylline) 25 mg IVP Q2M PRN PRN Reason: see dose instructions Stop: 02/25/20 06:11 Last Admin: 02/24/20 08:23 Dose: 25 mg Documented by: Amiodarone HCl (Cordarone) 400 mg PO BID [facility] Last Admin: 02/24/20 10:08 Dose: 400 mg Documented by: Heparin Sodium (Beef Lung) (Heparin) 5,000 unit SUBCUT Q8H [facility] Last Admin: 02/24/20 10:08 Dose: 5,000 unit Documented by: Metoprolol Tartrate (Lopressor) 25 mg PO BID [facility] Last Admin: 02/24/20 10:08 Dose: 25 mg Documented by: Morphine Sulfate (Morphine) 2 mg IVP Q4H PRN PRN Reason: SEVERE PAIN Nitroglycerin (Nitrostat) 0.4 mg SUBLINGUAL Q5M PRN PRN Reason: CHEST PAIN Stop: 02/25/20 06:11 Ondansetron HCl (Zofran) 4 mg IVP Q6H PRN PRN Reason: NAUSEA AND VOMITING Ondansetron HCl (Zofran) 4 mg IVP Q2M PRN PRN Reason: NAUSEA Prednisone (Prednisone) 40 mg PO DAILY [facility] Last Admin: 02/24/20 10:13 Dose: 40 mg Documented by: Fluticasone/Salmeterol (Advair Diskus 500-50) 1 puff INHALATION BID.RESPIRATORY RUY Last Admin: 02/24/20 09:00 Dose: Not Given Documented by: Vitals/I&O/Wt Last Vital Signs Temp 97.5 F L 02/24/20 04:00 Pulse 70 02/24/20 04:00 Resp 21 H 02/24/20 04:00 BP 120/70 02/24/20 04:00 Pulse Ox 94 02/24/20 04:00 02/23/20 02/24/20 02/24/20 22:59 06:59 14:59 Intake Total 998 / 1688 480 / 2168 Output Total 800 / 1900 400 / 2300 Balance 198 / -212 80 / -132 Weight last 48 hrs Weight 242 lb 8 oz Weight 242 lb 4.8 oz Weight 235 lb Physical Exam Narrative: EXAM NARRATIVE: GENERAL: The patient is alert and oriented times three. Not in any acute distress. HEENT: No significant pallor, icterus or lymphadenopathy.Oral cavity: There are no mucous membrane lesions. Fundus is not visualized NECK: Trachea appears to be central. No masses noted. No JVD or thyromegaly appreciated. RESPIRATORY: Chest is symmetrical. No intercostals muscle retraction or any accessory muscle activation. There is no chest wall tenderness. Breath sounds are heard bilaterally. No rales or rhonchi heard. No evidence of any consolidation. BREASTS: Deferred. HEART: The heart sounds are normal. No S3 or S4. Short systolic murmur at the left sternal border. No diastolic murmurs. No pericardial rub. ABDOMEN: No vessel pulsations or distention. No tenderness. No organomegaly appreciated. Bowel sounds are normally heard. : Deferred. RECTAL: Deferred. LYMPHATIC: No lymphadenopathy noted in the neck or groin. EXTREMITIES: No edema or cyanosis. No clubbing. Peripheral pulses are palpated in fairly good volume and amplitude MUSCULOSKELETAL: No acute joint deformities or swelling SKIN: There are no significant rashes or ecchymosis NEUROPSYCHIATRIC: The patient is alert and oriented x3. Appears to be in a good mood. No tremors or rigidity noted. Data : 02/24/20 04:49 02/24/20 04:49 Other Labs: PT 13.10 SECONDS (10.5-13.3) 02/22/20 22:33 A&P Assessment and plan (1) Sustained ventricular tachycardia: Patient is currently on amiodarone for now milligrams p.o. twice daily. He seems to be tolerating the medication so far well. He may be continued on the same dose for the next 2 weeks. Status: Acute (2) Atypical angina: In view of his abnormal myocardial perfusion imaging, possibility of him having underlying coronary artery disease is very high. For further evaluation of his symptoms especially in view of the abnormal myocardial perfusion imaging, a cardiac catheterization would be appropriate. This was discussed the patient in detail. The risk of bleeding, hematoma, vascular injury, myocardial infarction, CVA, renal failure and other concomitant complications were explained in detail. Based on the angiogram findings, further recommendations will be made. Patient would like to have this done as an outpatient sometime next week. In the meanwhile, he may continue on the current medications. Status: Acute (3) Shortness of breath: This could be related to the COPD/overweight. Possibility of coronary ischemia causing this cannot be excluded. The Status: Acute (4) Chest pain: As mentioned above Status: Acute Qualifiers: Chest pain type: unspecified Qualified Code(s): R07.9 - Chest pain, unspecified Additional A&P Information If the patient continues remain stable, may be discharged home today. We may bring him back next week as an outpatient for the procedure. In the event of developing any recurrence of palpitations, dizziness or syncopal episodes, advised to contact us. After reviewing the cardiac catheterization data, further management decisions will be made. Attestations Medical Necessity Statement*: Stable discharge home today Coding Level of Care Code Acute Terrazzo Worker Apprentice for Billy Palacio Medical Decision Making Moderate Complexity Diagnoses Sustained ventricular tachycardia I47.2 Atypical angina I20.8 Shortness of breath R06.02 Chest pain R07.9 Chest pain type: unspecified Time Spent (min) 35
[2020-02-24 10:00] VITALS: BP 150/87; PULSE 66; RESP 15; TEMP 35.9; O2SAT 95
--- NOTE | 2020-02-24 10:01 | PC.CHAP ---
Pastoral Care Encounter/Spiritual Assessment Type of Contact [] Declined surface miner visit [] Patient/Family/Request visit [] Outpatient visit [] Follow-up visit [] Physician referral [] Code/Alert [x] Routine visit [] Staff referral [] Actively dying [] Patient sleeping [] Family support [] [x] Out of room [] Palliative care [] [] Receiving care in room [] Pre-surgical visit [] Trauma [] Long length of stay [] ICU visit [] Other: Relational/Emotional Strength [] Patient feels connected with others/family/visitors/staff [] Distress [] Loneliness/isolation [] Abandonment Spirituality of Patient [] Person of Jessica [] Attends Mandaen of their Jessica [] Believes in Prayer [] Reads Bible or Anabaptism materials [] There are Spiritual issues to be addressed [place] Interventions [] Prayer [] Active listening [] Non-anxious presence [] Spiritual/emotional support [] Crisis/trauma care [] Spiritual counseling [] Bereavement support [] Provided bereavement packet [] Provided Bible/devotional materials [] Provided toy/stuffed animal, coloring book to patient or family member [] Provided Communion [] Anointing/[place] [] Salvation [] Completed spiritual assessment [] Other: Impact on Illness or Injury [] Angry [] Fearful [] Anxious [] Often cries [] Exhaustion [] Unable to work [] Unable to attend christianity [] Unable to walk/stand [] Unable to read [] Unable to drive [] Unable to eat/drink [] Unable to sleep [] Unable to be with family [] Patient intubated [] Other: Summary Time spent with patient
[2020-02-24] MEDS: metoprolol tartrate 25 mg Tablet PO (10:08)
[2020-02-24] MEDS: amiodarone 200 mg Tablet 400 MG PO (10:08)
[2020-02-24] MEDS: predniSONE 20 mg Tablet 40 MG PO (10:13)
--- NOTE | 2020-02-24 11:12 | P.DS_ITS ---
Discharge Providers Date of Admission: 02/23/20 00:27 Date of Discharge: February 24, 2020 Attending Provider at Admission: Chun Black Attending Provider at Discharge: Sridhar Tadeo MD Primary Care Provider: SIRENA Erickson Diagnoses at Discharge Discharge Diagnosis (1) Sustained ventricular tachycardia: Status: Acute (2) Atypical angina: Status: Acute (3) Shortness of breath: Status: Acute Problem details: The EKG from 02/09/2020 revealed normal sinus rhythm with a normal ST-T's. (4) Positive cardiac stress test: Status: Acute Reason for Visit Reason for Visit: HEART PROBLEMS Hospital Course Discharge Summary: Sam Henson is a 59 year old gentleman with COPD, obstructive sleep apnea, current smoker, HTN, episodes of chest pressure, fatigability on exertion, intermittent palpitations, has been following up with cardiology Dr. Orozco, they have been arranging for a stress test for him, although he has not had one yet. He is also been set up with an event monitor on Thursday. He reports having several episodes of palpitations during the past week, including 1 today. This reportedly on the monitor was noted to be a 22- second run of VT. he denies any current chest pain. He has had no syncope. He is noted in sinus rhythm on EKG here. Troponin baseline in 2-hour follow-up are normal. His electrolytes including potassium magnesium are normal. Thyroid function test normal. At home he takes metoprolol for hypertension. Given prolonged run of ventricular tachycardia his technical trainer Dr. Orozco requested observation in the hospital, initiation of amiodarone, and will see him tomorrow. Patient otherwise reports that he has been having chronic cough for months, and reports currently has been noticing productive sputum of yellow color. He reports he gets very easily dyspneic, now with even mild incline gradient. He reports he is not normally on oxygen during the day, however, does connect his CPAP at night to 2 L. He does report sometimes getting dyspneic during the day he puts on his CPAP/oxygen, and reports that this makes his symptoms better, even if it is just for a short time. He follows with Dr. Arias in office for his pulmonary problems. He understands that he needs to stop smoking, however, currently still smokes 1 pack/day. Patient was admitted to the ICU and started on amiodarone drip. Amiodarone drip was weaned off as per the protocol and was started on amiodarone 400 mg twice daily. Echocardiogram was done to rule out structural abnormalities. Echocardiogram showed an EF of 60% with mild TR and mild pulmonary hypertension with PASP of 42 mmHg. His electrolytes are within normal limits. Because of his typical symptoms chest pain, palpitations radiating to neck during each event cardiac angina was another consideration for which he underwent cardiac stress test on February 23 showed small area of reversible defect in the apical lateral region suggestive of ischemia in the distribution of the left circumflex artery. Because of continued findings on stress test possible cardiac angiogram was discussed with the patient. He stated he would like to come as an outpatient next week to schedule cardiac angiogram. Case was discussed with cardiology and he was appropriately medically managed to be seen as an outpatient with Dr. Orozco in 1 week. He is been discharged on amiodarone 400 mg twice daily for next 7 days followed by 200 mg twice daily daily. He is also started on aspirin and statin for positive stress test. He is to follow-up with Dr. Orozco in 1 week to schedule a cardiac angiogram. Patient has been explained about danger signs and symptoms. Physical Exam Narrative: EXAM NARRATIVE: General: No acute distress, AO x3, morbidly obese HEENT: PERRLA, pupils bilaterally equal and reactive Chest: Bilateral bronchial breath sounds no added sounds, equal good air entry bilaterally CVS: S1-S2 regular, no murmurs, no tachycardia, no gallops, no rubs Abdomen: Soft, nontender, no organomegaly, bowel sounds present Neuro: No focal deficits, no facial deformity, AO x3, power 5/5 in all limbs Discharge Data Data Completed and Pending: Completed Studies During Hospitalization Category Date Time Status Sestamibi Stress Test Request Routi ne Exams 02/24/20 08:00 Completed XR chest 1V silas ble [id number] Stat Exams 02/22/20 22:23 Completed NM ck perf SPECT r/s* [id number] Routin e Nuc Med 02/24/20 Completed Labs from last 24 hours 02/24/20 02/24/20 04:49 04:49 WBC 14.9 H RBC 4.87 Hgb 15.0 Hct 47.0 MCV 96.5 H MCH 30.8 MCHC 31.9 RDW 12.5 Plt Count 264 MPV 9.2 Neut % (Auto) 77.4 Lymph % (Auto) 12.2 [place] % (Auto) 9.5 Eos % (Auto) 0.1 Baso % (Auto) 0.1 Neut # (Auto) 11.52 H Lymph # (Auto) 1.8 [place] # (Auto) 1.4 H Eos # (Auto) 0.0 Baso # (Auto) 0.0 Nucleated RBC % (a uto) 0 Nucleated RBCs # 0.0 Sodium 139 Potassium 3.7 Chloride 105 Carbon Dioxide 26 Anion Gap 11.7 BUN 14 Creatinine 0.6 L GFR Calculation 137.4 H Glucose 147 H Calculated Osmolal ity 287 Calcium 8.9 Total Bilirubin 0.4 AST 16 ALT 15 Alkaline Phosphata se 52 Total Protein 6.2 L Albumin 3.9 Globulin 2.3 Vitals: Last Vital Signs Temp 96.7 F L 02/24/20 10:00 Pulse 66 02/24/20 10:00 Resp 15 02/24/20 10:00 BP 150/87 02/24/20 10:00 Pulse Ox 95 02/24/20 10:00 Discharge Plan Discharge Patient Disposition: Home, Self-Care Condition: Stable Prescriptions: New Pacerone 200 mg Tablet 400 mg PO BID Qty: 60 RF: 0 Adult Aspirin Regimen 81 mg tablet,delayed release (DR/EC) 81 mg PO DAILY Qty: 30 RF: 0 atorvastatin 40 mg tablet 40 mg PO DAILY Qty: 30 RF: 0 prednisone 20 mg Tablet 40 mg PO DAILY Qty: 2 RF: 0 lisinopril 5 mg tablet 5 mg PO DAILY Qty: 30 RF: 0 Continued Spiriva with HandiHaler 18 mcg capsule, w/inhalation device 1 cap INHALATION DAILY Qty: 30 RF: 3 budesonide-formoterol [Symbicort] 160-4.5 mcg/actuation HFA aerosol inhaler 2 puff INHALATION BID Qty: 10.2 RF: 3 albuterol sulfate 2.5 mg /3 mL (0.083 %) solution for nebulization 2.5 mg INHALATION Q4H PRN (Reason: shortness of breath or wheezing) Qty: 540 RF: 3 albuterol sulfate [ProAir HFA] 90 mcg/actuation HFA aerosol inhaler 2 puff INHALATION Q6H PRN (Reason: shortness of breath or wheezing) Qty: 18 RF: 3 metoprolol tartrate 25 mg tablet 25 mg PO BID Qty: 180 RF: 3 Discontinued lisinopril-hydrochlorothiazide 10-12.5 mg tablet 1 tab PO DAILY RF: 0 Discharge Orders: Discharge Order (Routine); Ordered 02/24/20 Ordered By: Sridhar Tadeo Referrals: Sherif Orozco MD [Physician] - 4-7 days Elijah Louis FNP [Primary Care Provider] - 2 weeks Discharge Diet: Cardiac Discharge Activity: Resume usual activity Activity Restrictions/Additional Instructions: Please take amiodarone 400 mg twice daily for next 6 days after that reduce the dose to 200 mg twice daily. Please take aspirin 81 mg daily along with atorvastatin 40 mg daily now. Please follow-up with Dr. Orozco in 1 week follow-up cardiac angiogram as an outpatient. If you have palpitations, dizziness, chest pain, nausea again please come to the emergency department immediately to rule out a repeat V. tach or cardiac angina. Discharge Attestations Time Spent in Discharge Care*: greater than 30 min Specific Discharge Activities: Specific discharge activities: educating patient, discussing with pcp/other providers, documenting/other paperwork and e valuating patient/reviewing data Status at Discharge: Cognitive status at discharge: cognitively intact , Behavioral status at discharge: cooperative , Functional status at discharge: independent ambulation Overall status at discharge: patient is back to baseline Quality Metrics Clinical Quality Measures During this hospital stay, did patient experience: None Coding Level of Care Code Acute Compressor Engineer for Billy Fwd Diagnoses Sustained ventricular tachycardia I47.2 Atypical angina I20.8 Shortness of breath R06.02 Positive cardiac stress test R94.39
--- NOTE | 2020-02-24 11:42 | PC.RESP ---
Smoking Cessation and Pulmonary Rehab information sent to patient.
[2020-02-24 14:32] VITALS: BP 150/87; PULSE 66; RESP 15; TEMP 35.9; O2SAT 95
== END 2020-02-24 14:33 | disposition home or self-care (01) | DRG 309 ==
LOC: ER 02-23 00:41 → ICU 02-23 01:16 → CSU 02-23 17:22
PROVIDERS: Emergency Medicine; Admitting Provider Internal Medicine; PCP Nurse Practitioner; Visit Provider Student in an Organized Health Care Education/Training Program
DX: I47.2 Ventricular tachycardia (principal); J44.1 Chronic obstructive pulmonary disease with (acute) exacerbation; G47.33 Obstructive sleep apnea (adult) (pediatric); I20.9 Angina pectoris, unspecified; F17.210 Nicotine dependence, cigarettes, uncomplicated; I10 Essential (primary) hypertension
CPT/HCPCS: 12345; 36415; 71045; 78452; 80048; 80053; 80061; 81001; 83036; 83690; 83735; 84439; 84443; 84484; 85025; 85610; 93005; 93017; 94640; 94660; 96372; 96374; 99284; A9500; J0280; J0282; J0696; J1644; J2785; J7030; J7060; J7512

== ENCOUNTER 2020-03-05 | Day surgery (SDC) | payer OTHER, SELFPAY ==
[2020-03-05 11:33] LABS: Basophils # 0.1 10^3/uL (0.0-0.1); Basophils % 0.7 %; Eosinophils # 0.2 10^3/uL (0.0-0.8); Eosinophils % 2.6 %; Hematocrit 49.5 % (42.0-52.0); Hemoglobin 16.1 g/dL (11.7-16.6); Lymphocytes % 21.6 %; Mean Corpuscular HGB Conc 32.5 g/dL (30.0-36.0); Mean Corpuscular Hemoglobin 32.1 pg (28.0-34.0); Mean Corpuscular Volume 98.8 fL (80-94); Mean Platelet Volume 8.6 fL (7.4-10.4); Monocytes % 10.7 %; Nucleated Red Blood Cells % 0 %; Platelet Count 292 10^3/cmm (130-400); Red Blood Count 5.01 10^6/uL (4.1-5.3); Red Cell Distribution Width 12.9 % (12.1-15.1); White Blood Count 9.2 10^3/uL (4.0-10.0)
[2020-03-05 11:49] LABS: Partial Thromboplastin Time 28.7 SECONDS (23.9-36.7)
[2020-03-05 11:54] LABS: Anion Gap 12.4 (5-19); Blood Urea Nitrogen 11 mg/dL (8-23); Carbon Dioxide 29 mmol/L (22-29); Chloride 102 mmol/L (98-107); Glucose 103 mg/dL (65-115); Osmolality Calculated 284 mOsm/kg (285-295); Potassium 4.4 mmol/L (3.5-5.1); Sodium 139 mmol/L (136-145)
== END 2020-03-05 23:00 | disposition home or self-care (01) ==
LOC: CCL 03-28 12:26
PROVIDERS: PCP Nurse Practitioner; Visit Provider Internal Medicine Cardiovascular Disease
DX: I47.2 Ventricular tachycardia (principal); R07.9 Chest pain, unspecified; R94.39 Abnormal result of other cardiovascular function study
CPT/HCPCS: 80048; 85025; 85730

== ENCOUNTER 2020-03-09 13:47 | Observation (INO) | payer OTHER, SELFPAY ==
[2020-03-09] VITALS (46 sets, daily range): BP systolic 101–131; BP diastolic 65–82; PULSE 53–67; RESP 16–31; TEMP 36.9; O2SAT 88–95; BMI 37.4
--- NOTE | 2020-03-09 11:00 | XACV_ITS ---
Exam Room: [facility] Ht: 170 cm Wt: 108 kg BSA: 2.31 m2 Gender: Male : 1960 Exam Priority: Routine Procedure(s): Procedure Description: Diagnostic procedure Procedure Description: Left Heart Catheterization Procedure Description: Left ventriculography Procedure Description: Coronary Angiography Diagnostic Cath Status: Elective Diagnostic Findings Left main is a medium caliber elongated vessel with no significant stenotic lesions. The left circumflex artery is a medium caliber vessel with mild diffuse intimal irregularities in the mid and distal segments. No significant stenotic lesions. The left anterior descending artery is a medium caliber vessel which appears to taper off towards the LV apex. Proximal segment of the artery was found to have mild diffuse intimal irregularities. The first diagonal branch is a medium caliber vessel which appears to bifurcate proximally. 1 of the bifurcation branches was found to have around 95% stenotic segment in the proximal portion. Minimal intimal regularities were noted in the mid and distal part of this vessel. The mid left anterior ascending artery was found to be very tortuous with tubular narrowing of around 50% proximally. The right coronary artery is a large dominant vessel which appears to be diffusely ectatic in the proximal and distal segments. The PLV branch also was found to have moderate diffuse ectasia. Mild diffuse intimal regularities are noted in the artery. No significant stenotic lesions. PCI Status: Elective Conclusions Normal left main. Left artery descending artery gives of a high diagonal branch which bifurcates proximally. One of the bifurcation branches was found to have a 95% proximal lesion. Other vessels were found to have mild diffuse disease. The right coronary artery was found to be diffusely ectatic with no significant stenotic lesions. LV angiogram reveals ejection fraction around 50%. LVEDP was 24 mmHg. This is a 59-year-old white male with history of hypertension, dyslipidemia, sleep apnea, COPD with shortness of breath and palpitations and atypical chest pains. He had a myocardial perfusion imaging which revealed some areas of fixed defects with a small area of reversible defect in the lateral wall region. The transient ischemic dilatation ratio was elevated. Patient was found to have episodes of sustained ventricular tachycardia on the event monitor . He was admitted to the hospital for further evaluation. He was treated with amiodarone. Continue to have some chest pains and shortness of breath. For further evaluation of his coronary status, a cardiac catheterization was recommended. Patient underwent left heart catheterization with a left and right coronary angiogram and LV angiogram today. The findings are as follows. I discussed and reviewed the cardiac catheterization data with Dr. Lisa. The diagonal branch is a small to medium caliber vessel and the intervention will be technically challenging. The area of ischemia was in the circumflex region. So it was decided to treat the patient medically at this point. Recommendations Continue current medical management and risk factor modification. Diagnostic RX Recommendation: medical therapy and/or counseling LV EDP: 24 mmHg Ejection Fraction: 50.0 % Left Ventriculography Findings: The LV gram was performed the HERRERA position. The LV cavity appears to be of normal size. There is mild diffuse hypokinesia of the LV apex. The opacification was a suboptimal quality in this region. Pressures Phase:Rest AO : 109 mmHg / 38 mmHg ( 71 mmHg ) @ 7:38:00 AM 100 mmHg / 69 mmHg ( 83 mmHg ) @ 7:39:00 AM 115 mmHg / 33 mmHg ( 43 mmHg ) @ 7:48:00 AM 120 mmHg / 87 mmHg ( 103 mmHg ) @ 7:48:00 AM 120 mmHg / 58 mmHg ( 80 mmHg ) @ 7:54:00 AM 119 mmHg / 64 mmHg ( 90 mmHg ) @ 7:54:00 AM LV : 120 mmHg / 4 mmHg / @ 7:53:00 AM 127 mmHg / 0 mmHg / @ 7:54:00 AM 127 mmHg / 0 mmHg / @ 7:54:00 AM Valves Phase:DefaultPhase AV : 9.0 mmHg @ 8:06:23 AM AV Mean Gradient: 9.0 mmHg @ 8:06:23 AM Clinical Evaluation EBL: 5mL-10mL Procedural Details Procedure Consent Obtained. Pre-Procedure Time Out. Identified patient by full name and date of as verbalized by the patient/guarantor. Does the consent match the physician's order: Yes. Accurate & Complete Informed Consent: Yes. Inpatient/Outpatient History & Physical on Chart: Yes. If H&P is completed, is and addenduem needed: N/A; If yes, is the addendum complete: N/A. Visualize and Verify Site with Patient/Guarantor: N/A. Relevant Radiology Images available: N/A. The risks, benefits, and alternatives of sedation and/or procedure were discussed by physician. The patient agrees to continue. Procedure started. [facility] Clinical Fraility Score: 4: Vulnerable. International Bank Manager Indications: Cardiomyopathy. Chest Pain Symptom Assessment: Atypical Angina. Correct patient, site and procedure confirmed by cath team. Current diagnosis: Chest Pain. PERRLA. Strong, equal hand stage driver bilaterally. Lungs clear x 5 lobes. IV Site on Arrival: 20 gauge in the left forearm. A 20 gauge IV was started in the right anticubital using aseptic technique. IV Fluids: 0.9% NaCl at KVO. 0 mL infused prior to label press operator. Pre Procedural Pulses: bilateral dorsalis pedis was 2+. Pre Procedural Pulses: bilateral posterior tibial was 1+. Pre Procedural Pulses: bilateral radial was 2+. bilateral groins was prepped with chloroprep then draped in the usual sterile fashion. right radial was prepped with chloroprep then draped in the usual sterile fashion. Baseline sample Acquired. HR: 58 BPM. Equipment: 6F - Radial. Physician arrived. Physician scrubbed in. Immediate Pre-Procedure Time Out. Correct Patient: Yes; Correct Procedure: Yes; Correct Site: Yes; Correct Patient Position: Yes; Correct Supplies: Yes; Dried Flammable Prep: Yes; Blood Products Available: N/A;. Lidocaine 1% infiltrated to the right radial. Arterial access obtained. A 5 arg[place] Juan Manuel catheter in over wire. Catheter inserted over the exchange wire. Multiple views taken of left coronary artery. Catheter redirected to the RCA. Catheter out. Catheter removed over the exchange wire. A 5 argentine JR4 catheter in over wire. Catheter inserted over the exchange wire. Multiple views taken of right coronary artery. Catheter out. Catheter removed over the exchange wire. A 5 arg[place] Angled Pig catheter in over wire. Catheter inserted over the exchange wire. LV gram performed in HERRERA @ 10 mL/second for a total of 30 mL. EDP Sample taken: LV 120/4,24; HR: 75 BPM; SpO2: 96%. EDP Sample taken: LV 127/-1,27; HR: 67 BPM; SpO2: 96%. Pullback taken: LV 127/-1,26; AO 119/64(90); Mean: 9mmHg, Peak to Peak: 9mmHg, SEP: 20sec/min; HR: 67 BPM; SpO2: 95%. Catheter out. Catheter removed over the exchange wire. called Dr Lisa to review films. flushing sheath periodically to maintain sheath patency. TR band placed. Hemostasis obtained. Post Procedure: Pulses reassessed and unchanged. PERRLA. Strong, equal hand stage driver bilaterally. No VTE prophylaxis required. Medication's Wasted: Lidocaine 1% = 18 mL. Medication's Wasted: Nitro = 49.8 mL. Medication's Wasted: Heparin = 1000 Units. Medication's Wasted: Other = versed 1mg. Total IV fluids: 75 mL. Fluoro: 10:02. Contrast type used: Omnipaque 300 mgI/mL, 500 mL bottle. [id number]. Post-op diagnosis: cardiomyopathy. Complications: none. Estimated blood loss: 5mL-10mL. Procedure completed. Patient transferred by wheelchair to 1st floor. Site: Right Radial artery Sheath Size: 6 Fr Hemostasis Success: Unsuccessful Procedure Medications Start: 12:16 PM Stop: 12:16 PM Medication: Benadryl Amount: 25 mg Route: I.V. Start: 12:22 PM Stop: 12:22 PM Medication: Fentanyl Amount: 50 mcg Route: I.V. Start: 12:22 PM Stop: 12:22 PM Medication: Versed Amount: 1 mg Route: I.V. Start: 12:31 PM Stop: 12:31 PM Medication: Versed Amount: 1 mg Route: I.V. Start: 12:34 PM Stop: 12:34 PM Medication: Verapamil Amount: 5 mg Route: I.A. Start: 12:34 PM Stop: 12:34 PM Medication: Nitrogylcerin Amount: 200 mcg Route: I.A. Start: 12:37 PM Stop: 12:37 PM Medication: Heparin Amount: 5000 units Route: I.V. Start: 12:40 PM Stop: 12:40 PM Medication: Fentanyl Amount: 25 mcg Route: I.V. Start: 12:47 PM Stop: 12:47 PM Medication: Fentanyl Amount: 25 mcg Route: I.V. Start: 12:52 PM Stop: 12:52 PM Medication: Versed Amount: 1 mg Route: I.V. I, the attending physician, have reviewed and verified all procedure medications. Yes, all medications given per verbal order History/Risk Factors Hypertension: Yes Dyslipidemia: Yes Peripheral Arterial Disease (PAD): No Myocardial Infarction (ND): No Obesity: Yes Renal Disease: No Tobacco Use: Current/Recent(w/in 1 year) Prior Interventions PCI: No CABG: No Valve Surgery: No Report Signatures Finalized by:Dr Sherif Orozco MD [facility] on 03/13/2020 9:37:16 AM
--- NOTE | 2020-03-09 12:04 | W.PM.OPSUD ---
Surgery/Procedure H&P Update DATE OF PROCEDURE: March 09, 2020 DATE H&P PERFORMED: 02/24/20 H&P UPDATE INFORMATION: I have reviewed H&P completed within last 30 days, I have examined patient prior to procedure and No changes to prior documentation PREOP DIAGNOSIS: Nonsustained ventricular tachycardia/abnormal myocardial perfusion imaging/shortness of breath PLANNED PROCEDURE: Operation Date: 03/09/20 12:00 Proposed Procedures p Cardiac Catheterization left heart cath(Left) - Sherif Orozco MD PATIENT REASSESSED PRIOR TO SEDATION, WITH NO CHANGE NOTED: Yes PHYSICAL EXAM: alert, oriented x 3, clear to auscultation bilaterally and regular rate & rhythm AIRWAY EVAL/ANESTHESIA PLAN: normal airway, see other exam findings, ASA III, Risks, benefits & alternatives of sedation and/or procedure discussed and Patient agrees to continue as planned
--- NOTE | 2020-03-09 15:42 | PC.NURSE ---
received from cardiac labor trainer at 1325.report received.pt is alert and oriented x4.denies pain at present.sr on monitor.right wrist with tr band on and inflated.no hematoma noted.right hand is warm to touch and with brisk capillary refill.palpable radial pulse noted distal to tr band.instructed pt in activity restrictions s/p radial artery procedure...and instructed to notify staff for any bleeding,pain,numbness..or for any concerns at all.pt verb understanding of instructions
--- NOTE | 2020-03-09 18:47 | PC.NURSE ---
tr band slowly deflated over several hours and removed at 1630.right hand remains warm to touch and with brisk capillary refill.no hematoma noted.palpable radial pulse noted.site dressed with 2x2 gauze and secured with biocclusive drsg.discharge instructions given and explained.pt verb understanding of instructions.discharge by w/c to exit at this time.pt's aunt to drive pt home.
--- NOTE | 2020-03-12 14:31 | PC.RESP ---
Smoking Cessation information sent to patient.
== END 2020-03-09 18:45 | disposition home or self-care (01) ==
LOC: CSU 13:48
PROVIDERS: Admitting Provider Internal Medicine Cardiovascular Disease; PCP Nurse Practitioner; Visit Provider Internal Medicine Cardiovascular Disease
DX: I25.110 Atherosclerotic heart disease of native coronary artery with unstable angina pectoris (principal); I10 Essential (primary) hypertension; G47.33 Obstructive sleep apnea (adult) (pediatric); J44.1 Chronic obstructive pulmonary disease with (acute) exacerbation
CPT/HCPCS: 12345; 36415; 86850; 86900; 93452; C1769; C1887; C1894; G0378; J1200; J1644; J2250; J3010; J3490; J7030; Q9967

== ENCOUNTER → 2020-03-16 11:32 | Outpatient (BNVA) | payer OTHER, SELFPAY | PROVIDERS: PCP Nurse Practitioner; Visit Provider Nurse Practitioner Family | DX: I25.10 Atherosclerotic heart disease of native coronary artery without angina pectoris (principal) | CPT/HCPCS: 80048 ==

== ENCOUNTER → 2020-04-13 08:58 | Outpatient (BNVA) | payer OTHER, SELFPAY | PROVIDERS: PCP Nurse Practitioner; Visit Provider Internal Medicine | DX: Z11.59 Encounter for screening for other viral diseases (principal) | CPT/HCPCS: 87635 ==

== ENCOUNTER 2020-04-18 06:03 | Day surgery (SDC) | payer OTHER, SELFPAY ==
[2020-04-18 06:21] VITALS: BP 114/69; PULSE 46; RESP 18; TEMP 36.8; O2SAT 95
--- NOTE | 2020-04-18 06:39 | W.PM.OPSUD ---
Surgery/Procedure H&P Update DATE OF PROCEDURE: April 18, 2020 DATE H&P PERFORMED: 03/29/20 H&P UPDATE INFORMATION: I have reviewed H&P completed within last 30 days, I have examined patient prior to procedure and No changes to prior documentation PREOP DIAGNOSIS: Occult blood in stool PRIMARY INDICATION FOR PROCEDURE: The same PLANNED PROCEDURE: Operation Date: 04/18/20 07:00 Proposed Procedures p Colonoscopy 75080 K92.1(Not Applicable) - Dorian Blanco MD
[2020-04-18] MEDS: sodium chloride 0.9% 1,000 ML 30 ML IV (06:41)
--- NOTE | 2020-04-18 06:54 | P.ANESASSM_ITS ---
Pre-Anesthetic Assessment Pre-Anesthetic Assessment: Height/Weight: Height 1.7 m Weight 103.419 kg Temp Pulse Resp BP Pulse Ox 98.3 F 46 L 18 114/69 95 04/18/20 06:21 04/18/20 06:21 04/18/20 06:21 04/18/20 06:21 04/18/20 06:21 Preop Diagnosis: Occult blood in stool Proposed Procedure: Operation Date: 04/18/20 07:00 Proposed Procedures p Colonoscopy 26467 K92.1(Not Applicable) - Dorian Blanco MD Was Beta Elpidio taken within 24 hours: Yes Last intake: Intake Last Liquid Date 04/17/20 Last Liquid Time 22:00 Last Solid Date 04/16/20 Social: Packs per day: 1 Exam: Pre-Anes Outpt Exam: alert, oriented x 3, clear to auscultation bilaterally and regular rate & rhythm Airway: Submandibular: WNL Cervical ROM: WNL MP: 2 Dentition: Chipped History/ROS: No significant history except as noted and No significant complaints Pulmonary: Pulmonary: COPD and SOB CV/HEM: CV/HEM: CAD and HTN : : None reported Hepatic: Hepatic: None reported GI: GI: None reported Metabolic: Metabolic: None reported Musc/skel: Musc/skel: None reported Neuropsych: Neuropsych: None reported Anesthetic Plan: ASA status: 3 Anesthesia: Anesthesia Evaluation and MAC Risk of > 500 ml blood loss (7ml/kg in children): No Meds/Allergies Current Medications: Current Medications Generic Name Dose Route Start Last Admin Trade Name Freq PRN Reason Stop Dose Admin Sodium Chloride 1,000 mls @ 30 ml s/hr 04/18/20 06:15 04/18/20 06:41 Sodium Chloride 0.9% IV 30 mls/hr .Q24H RUY Administration PFSH Anesthesia PFSH: Medical History Atypical angina COPD (chronic obstructive pulmonary disease) Coronary artery disease Dyslipidemia High risk medication use HTN (hypertension) Obstructive sleep apnea Palpitations PND (post-nasal drip) Sustained ventricular tachycardia Surgical History H/O hernia repair H/O knee surgery History of surgical removal of ganglion cyst Family History Father Cancer Mother Cancer Family/Other Stroke Grandmother Stroke Dementia Grandfather CAD (coronary artery disease) Social History Smoking and tobacco status: current every day smoker cigarettes Packs smoked per day: 0.5 Years cigarettes smoked: 40 [ Other cigarette details: Hx of 1 PPD x 25 Years ] Alcohol intake: never Lives independently: Yes Household members: spouse and family Marital status: Current occupational status: employed Current occupation: [employer] Current occupational exposures/hazards: No History of recent travel: No Current gender identity: Male Data Anesthesia Cardiac Studies: Holter Monitor 03/20/20
[2020-04-18 07:14] VITALS: BP 113/68; PULSE 58; RESP 16; TEMP 36.8; O2SAT 92
[2020-04-18 07:28] VITALS: BP 112/63; PULSE 56; RESP 16; O2SAT 98
--- NOTE | 2020-04-18 07:54 | ANE.PACU2 ---
Inpatient post-anesthesia follow up: Vital signs: Temperature 98.2 F Pulse Rate 56 Respiratory Rate 16 Blood Pressure 112/63 Pulse Oximetry 98 Oxygen Delivery Me thod Nasal Cannula Oxygen Flow Rate 3 Fraction of Inspir ed Oxygen Hydration adequate: Yes Nausea and vomiting: No Pain level: 1 Mental status: Baseline
== END 2020-04-18 07:39 | disposition home or self-care (01) ==
PROVIDERS: PCP Nurse Practitioner; Visit Provider Surgery
PROC: 0DJD8ZZ Inspection of Lower Intestinal Tract, Via Natural or Artificial Opening Endoscopic (ICD-10-PCS; CPT 45378; principal; 2020-04-18 07:00)
DX: K57.31 Diverticulosis of large intestine without perforation or abscess with bleeding (principal); I10 Essential (primary) hypertension; I25.10 Atherosclerotic heart disease of native coronary artery without angina pectoris; J44.9 Chronic obstructive pulmonary disease, unspecified; E78.5 Hyperlipidemia, unspecified; G47.33 Obstructive sleep apnea (adult) (pediatric); I47.1 Supraventricular tachycardia; Z86.010 Personal history of colon polyps; F17.210 Nicotine dependence, cigarettes, uncomplicated
CPT/HCPCS: 12345; 45378; J7030

== ENCOUNTER → 2020-05-04 11:02 | Outpatient (BNVA) | payer OTHER, SELFPAY | PROVIDERS: PCP Nurse Practitioner; Visit Provider Internal Medicine | DX: Z20.828 Contact with and (suspected) exposure to other viral communicable diseases (principal) | CPT/HCPCS: 87635 ==

== ENCOUNTER 2020-05-07 13:34 | Outpatient (CLI) | payer OTHER, SELFPAY ==
[2020-05-07 13:55] VITALS: BP 159/90
== END 2020-05-07 13:35 | disposition home or self-care (01) ==
LOC: RT 13:36
PROVIDERS: PCP Nurse Practitioner; Visit Provider Internal Medicine Critical Care Medicine
DX: J44.9 Chronic obstructive pulmonary disease, unspecified (principal)
CPT/HCPCS: 94618

== ENCOUNTER 2020-05-18 08:17 | Outpatient (CLI) | payer OTHER, SELFPAY ==
--- NOTE | 2020-05-18 08:45 | US_ITS ---
WS: [id number] Gallbladder and right upper quadrant ultrasound, 05/18/2020 Clinical Data: abdominal pain Comparison: None. Findings: The gallbladder shows no sludge or stone. The wall measures 0.3 cm with no pericholecystic fluid. The common bile duct is 0.5 cm and there are no intrahepatic ductal abnormalities. Liver shows no cysts, masses or dilated intrahepatic ducts. The pancreas is not obscured by overlying bowel gas and no cyst, pseudocyst, or evidence of pancreati tis is noted. Right kidney measures 12.2 cm and no cyst, masses or hydronephrosis can be seen. The aorta and inferior vena cava show no vascular abnormalities. US/US gall bladder [id number] Impression: Negative gallbladder and right upper quadrant ultrasound.
== END 2020-05-18 08:18 | disposition home or self-care (01) ==
LOC: US 08:19
PROVIDERS: PCP Nurse Practitioner; Visit Provider Surgery
DX: R10.9 Unspecified abdominal pain (principal)
CPT/HCPCS: 76705

== ENCOUNTER 2020-06-06 07:52 | Outpatient (CLI) | payer OTHER, SELFPAY ==
--- NOTE | 2020-06-06 08:00 | NM_ITS ---
WS: [id number] NUCLEAR MEDICINE HIDA SCAN WITH GALLBLADDER EJECTION FRACTION HISTORY: abdominal pain COMPARISON: Gallbladder ultrasound 05/18/2020 TECHNIQUE: The patient was intravenously injected with 7.5 mCi of TC99m Mebrofenin. Immediate imaging over the right upper quadrant was followed by 5 minute image and additional images for a total of 60 minutes. Normal uptake of radiotracer throughout the liver. Activity identified in the gallbladder at 10 minutes and well distended by 60 minutes. Activity in the proximal small bowel was seen by 30 minutes. Good washout of the radiotracer from the liver by 60 minutes. The patient then drank 8 ounces of Ensure Plus. Ejection fraction at 60 minutes was 82%. Normal GB ej ection fraction is 35-75%. Post fatty meal symptoms: None. NM/NM hepatobiliary w phar* [id number] IMPRESSION: 1. Normal HIDA scan. 2. Normal gallbladder ejection fraction.
== END 2020-06-06 07:53 | disposition home or self-care (01) ==
LOC: NM 07:55
PROVIDERS: PCP Nurse Practitioner; Visit Provider Surgery
DX: R10.9 Unspecified abdominal pain (principal)
CPT/HCPCS: 78227; A9537

== ENCOUNTER 2020-08-08 12:38 | Outpatient (CLI) | payer OTHER, SELFPAY ==
[2020-08-08 14:09] LABS: Blood Urea Nitrogen 16 mg/dL (8-23)
[2020-08-08 14:24] LABS: Glomerular Filtration Rate 114.6 mL/min (90-130)
== END 2020-08-08 12:39 | disposition home or self-care (01) ==
PROVIDERS: PCP Nurse Practitioner; Visit Provider Internal Medicine Critical Care Medicine
DX: R06.00 Dyspnea, unspecified (principal); R06.02 Shortness of breath; R07.9 Chest pain, unspecified
CPT/HCPCS: 36415; 82565; 84520

== ENCOUNTER 2020-08-14 14:18 | Outpatient (CLI) | payer OTHER, SELFPAY ==
--- NOTE | 2020-08-14 14:41 | CT_ITS ---
WS: [id number] CTA OF THE CHEST WITH PULMONARY EMBOLISM PROTOCOL TECHNIQUE: High-resolution contrast enhanced CTA of the chest with coronal and sagittal reformatted i mages with pulmonary embolism protocol. MIP images are also reviewed. CLINICAL INFORMATION: COPD COMPARISON: CT chest December 23, 2019 DLP: 745.[address] scans at [facility] use at least one of these dose optimization techniques: automat ed exposure control; mA and/or kV adjustment per patient size (includes targeted exams where dose is matched to clinical indication); or iterative reconstruction. FINDINGS: Proximal main pulmonary arteries are normal. Normal segmental and subsegmental pulmonary arteries. No evidence of pulmonary embolus. Normal caliber thoracic aorta. Moderate thoracic kyphosis. Hypertrophic changes thoracic spine. Chron ic emphysematous changes. No acute pulmonary infiltrates. Slight atelectasis in the lingula and right upper lobe along the fissure. Vascular calcification including coronary. Cholelithiasis. Moderate thoracic kyphosis with hypertroph ic changes. Diffuse fatty infiltration of the liver. Left adrenal lesion measuring 3.1 cm is unchange d. CT/CT angio chest PE protcl [id number] IMPRESSION: 1. No evidence of pulmonary embolus. 2. No acute pulmonary infiltrates. Chronic centrilobular emphysematous changes appear stable. 3. Cholelithiasis. Lobulation gallbladder fundus is unchanged. This can be fur ther evaluated with ultrasound. 4. Stable left adrenal lesion likely adenoma measuring 3.1 cm unchanged. 5. No other significant changes from previous.
[2020-08-14] MEDS: iodixanol 320 mg/mL 100mL Btl IV (15:06)
== END 2020-08-14 14:19 | disposition home or self-care (01) ==
LOC: RADWPI 14:24
PROVIDERS: PCP Nurse Practitioner; Visit Provider Internal Medicine Critical Care Medicine
DX: J44.9 Chronic obstructive pulmonary disease, unspecified (principal); K80.20 Calculus of gallbladder without cholecystitis without obstruction
CPT/HCPCS: 71275; Q9967

== ENCOUNTER → 2020-10-10 12:45 | Outpatient (BNVA) | payer OTHER, SELFPAY | PROVIDERS: PCP Nurse Practitioner; Visit Provider Internal Medicine Cardiovascular Disease | DX: R07.9 Chest pain, unspecified (principal); N18.9 Chronic kidney disease, unspecified; E78.5 Hyperlipidemia, unspecified; J96.11 Chronic respiratory failure with hypoxia; I50.33 Acute on chronic diastolic (congestive) heart failure; Z79.899 Other long term (current) drug therapy | CPT/HCPCS: 80048; 80076; 83880; 84443 ==

== ENCOUNTER 2021-02-06 06:00 | Outpatient (RCR) | payer OTHER, SELFPAY | END 2021-02-06 23:59 | disposition home or self-care (01) | LOC: GPT 06:00 | PROVIDERS: PCP Nurse Practitioner; Referring Provider Nurse Practitioner; Visit Provider Nurse Practitioner | DX: M54.5 Low back pain (principal) | CPT/HCPCS: 97162; 97530 ==

== ENCOUNTER 2021-02-13 10:29 | Outpatient (CLI) | payer OTHER, SELFPAY ==
--- NOTE | 2021-02-13 10:34 | XR_ITS ---
WS: [id number] LUMBAR SPINE TECHNIQUE: 3 views of the lumbar spine CLINICAL INFORMATION: BACK PAIN, RADICULOPATHY COMPARISON: None. FINDINGS: Five [id number] lumbar vertebral bodies. Disc space heights are well preserved. Moderate facet a rthropathy L5-S1. Anterior hypertrophic changes lower thoracic spine with bridging osteophytes. No ac [place] appearing compression fractures. Postoperative changes overlying the pelvis. Aortic calcification . XR/XR lumbar spine 2-3V* [id number] IMPRESSION: 1. Disc space heights vertebral body heights well-preserved. 2. Moderate facet arthropathy L5-S1. 3. Ankylosis with bridging osteophytes in the lower thoracic spine.
== END 2021-02-13 10:30 | disposition home or self-care (01) ==
LOC: RADWPI 10:32
PROVIDERS: PCP Nurse Practitioner; Visit Provider Nurse Practitioner
DX: M54.5 Low back pain (principal); M54.16 Radiculopathy, lumbar region; M47.817 Spondylosis without myelopathy or radiculopathy, lumbosacral region; M43.24 Fusion of spine, thoracic region; M25.78 Osteophyte, vertebrae
CPT/HCPCS: 72100

== ENCOUNTER → 2021-04-03 09:11 | Outpatient (BNVA) | payer OTHER, SELFPAY | PROVIDERS: PCP Nurse Practitioner; Referring Provider Nurse Practitioner; Visit Provider Specialist | DX: M17.0 Bilateral primary osteoarthritis of knee (principal); M25.561 Pain in right knee; M25.562 Pain in left knee | CPT/HCPCS: 73560; 73565 ==

== ENCOUNTER 2021-10-04 08:26 | Outpatient (CLI) | payer OTHER, SELFPAY ==
--- NOTE | 2021-10-04 08:45 | USCV_ITS ---
Sam Henson Age: 61 Gender: M : 1960 Exam Date: 10/04/2021 08:39 Ordering Phys: Sherif Orozco MD ([email or web address]) Technologist: FELIX Exam Location: [facility] [place] Indication: EVAL FOR STENOSIS Risk Factors: Previous Vascular Surgery: Right Brachial BP: / Left Brachial BP: / Right Left Velocity (cm/s) Spectral Plaque Velocity (cm/s) Spectral Plaque Syst/Diast Broadening Syst/Diast Broadening 92.30/ 18.80 Prox CCA 86.80 / 25.00 88.00/ 17.90 Mid CCA 90.70 / 27.60 57.30/ 17.90 Distal CCA 86.00 / 19.80 66.80/ 15.50 Prox ICA 70.90 / 19.20 69.70/ 16.80 Mid ICA 61.20 / 18.00 57.90/ 21.20 Distal ICA 69.00 / 18.00 94.40 ECA 119.50 0.76 ICA/CCA 0.78 Antegrade Vertebral Antegrade 66.40/ 21.00 cm/s 53.30/ 17.30 cm/s Tri Subclavian Tri 170.9 96.50 0 FINDINGS Moderate dense plaques of the right bifurcation Moderate heterogeneous plaques of the left bifurcation Antegrade flow in the vertebral arteries bilaterally Slightly elevated Doppler flow velocity within normal Doppler waveform in the right subclavian artery. CONCLUSIONS Moderate plaques bilaterally at the bifurcations, suggesting less than 50% stenosis. Elevated velocity in the right subclavian artery, could be related to tortuosity. No similar previous studies are available for comparison Dr Sherif Orozco MD [facility] (Electronically Signed) Final Date: 04 October 2021 11:35 S
== END 2021-10-04 08:27 | disposition home or self-care (01) ==
LOC: RAD 08:28
PROVIDERS: PCP Nurse Practitioner; Visit Provider Internal Medicine Cardiovascular Disease
DX: R09.89 Other specified symptoms and signs involving the circulatory and respiratory systems (principal); I65.23 Occlusion and stenosis of bilateral carotid arteries
CPT/HCPCS: 93880

== ENCOUNTER 2021-10-30 16:27 | Inpatient (IN) | payer OTHER, SELFPAY ==
[2021-10-30] VITALS (16 sets, daily range): BP systolic 101–129; BP diastolic 59–75; PULSE 76–93; RESP 16–26; TEMP 36.2–37.3; O2SAT 90–100; BMI 41.5
--- NOTE | 2021-10-30 17:31 | W.ED.ABDPA2 ---
HPI - Abdominal Pain General: Chief Complaint: Abdominal Pain Stated Complaint: ABD pain Time Seen by Provider: 10/30/21 17:30 History of Present Illness: Mr. Henson is a 61-year-old gentleman with history of COPD, chronic hypoxic respiratory failure, history of hypertension, hyperlipidemia, CAD, ventricular arrhythmia, and history of abdominal surgeries remotely who presents to the emergency department due to abdominal pain. He reports perhaps having less healthy food 3 days ago and subsequently developed diffuse abdominal cramping the next day. He last had a bowel movement 2 days ago which was normal. He is still passing gas. He has not had nausea or vomiting. No other signs of systemic illness. Quality is aching and cramping. Intensity is moderate to severe. Course has persisted/worsened. No other specific changes in health, exacerbating, or alleviating factors identified. Pertinent past history: other Onset (ago): day(s) Pain Consistency: constant Location: Diffuse Severity: severe Review of Systems General: Reports: 10 or more systems reviewed and unremarkable except in HPI and below PFSH ED PFSH: Medical History (Updated 11/04/21 @ 00:01 by ) Atherosclerosis of coronary artery of [place] heart without angina pectoris Atypical angina Bilateral primary osteoarthritis of knee Carotid bruit Chronic respiratory failure with hypoxia COPD (chronic obstructive pulmonary disease) Coronary artery disease Diverticulosis Dyslipidemia Dyspnea on exertion High risk medication use HTN (hypertension) Morbid obesity with BMI of 40.0-44.9, adult Nicotine addiction Nocturnal hypoxia Obstructive sleep apnea Palpitations PND (post-nasal drip) Sustained ventricular tachycardia Ventricular tachycardia Surgical History (Updated 11/02/21 @ 14:49 by Sridhar Tadeo MD) H/O hernia repair Periumbilical with mesh H/O knee surgery Bilateral arthroscopy History of colonoscopy (~04/2020) dr. macedo- [facility] [place] History of surgical removal of ganglion cyst Family History Father Cancer Anesthesia complication Diabetes Mother Cancer Dementia Family/Other Stroke Chronic kidney disease (CKD) Lung disease Dementia Grandmother Stroke Dementia CAD (coronary artery disease) Grandfather CAD (coronary artery disease) Denies family history of Clotting disorder Suicide Bleeding disorder Social History Smoking and tobacco status: current every day smoker cigarettes Packs smoked per day: 0.5 Years cigarettes smoked: 40 [ Other cigarette details: Hx of 1 PPD x 25 Years] Quit status (tobacco): considering quitting Second hand smoke exposure: No Smoking risk assessment/counseling performed?: Yes Alcohol intake: never Lives independently: Yes Household members: spouse and family Marital status: service: No Current occupational status: employed Current occupation: [employer] Current occupational exposures/hazards: No Pets and animals: Yes History of recent travel: No Current gender identity: Male Physical Exam Const: COMMON NORMALS: alert GENERAL APPEARANCE: cooperative, well developed and ill appearing (mild, uncomfortable due to pain) HENMT: COMMON NORMALS: normocephalic and atraumatic HEAD & SCALP: normocephalic and atraumatic Eye: COMMON NORMALS: conjunctivae normal CONJUNCTIVA: Yes conjunctivae normal SCLERA: sclerae normal Neck/C-Spine: COMMON NORMALS: supple GENERAL: Yes trachea midline Resp: COMMON NORMALS: clear to auscultation bilaterally EFFORT & INSPECTION: Yes able to speak in complete sentences AUSCULTATION: clear to auscultation bilaterally Cardio: COMMON NORMALS: regular rate and regular rhythm RATE: regular rate RHYTHM: regular rhythm GI: COMMON NORMALS: Soft to palpation PALPATION: Yes Soft to palpation, Yes Tenderness to palpation present (GI), No Guarding due to palpation present (GI) and No Rigid due to palpation PERCUSSION: normal to percussion Extremity: GENERAL: Yes normal exam except as noted and No edema Neuro: COMMON NORMALS: moves all extremities SENSORIUM/ORIENTATION: Yes alert and No Orientation impaired Psych: COMMON NORMALS: mental status grossly normal and Normal thought process present THOUGHT PROCESS: Normal thought process present Course ED course: - Patient was seen and evaluated by me at bedside - Patient placed on cardiac monitors, IV access obtained - Initial evaluation notable for exam as above - Labs personally interpreted by me -Analgesia given - Labs notable for leukocytosis, normal hemoglobin. Metabolic panel with evidence of dehydration. - Imaging notable for acute appendicitis. -Antibiotics ordered and case discussed with general surgery - Upon serial reexamination after treatment the patient was improved. - Based on patient history, evaluation, and testing as interpreted the most likely cause of the patient's condition is acute appendicitis - The results of ED evaluation were discussed with the patient including plan for admission due to requirement for level of care not available if discharged to prevent significant worsening/deterioration. - Patient was admitted without further deterioration or significant events. Note: Click bubbles or prepopulated crawley in note writing are used for assistance with data collection and billing and are inherently more limited than narrative and other text portions of this note. Please use narrative for additional clinical history and defer to narrative/free test for any case of contradictory information. If information appears in only free text or click bubble it should be considered present or absent as reported. Please contact note junior underwriter for clarifications of clinical information or contradictory information. MDM is a brief summary, contradictory or erroneous seeming information should be clarified and full note should be reviewed. Vital Signs: Vital signs: Vital Signs Temperature 98.0 F 11/03/21 12:00 Pulse Rate 68 11/03/21 16:36 Respiratory Rate 18 11/03/21 16:36 Blood Pressure 123/71 11/03/21 12:00 Pulse Oximetry 96 11/03/21 16:36 MDM - Abdominal Pain Medical Decision Making 61-year-old gentleman with history of abdominal surgeries presenting with abdominal pain for a few days. Pain is generalized. Patient found to have appendicitis on CT imaging. Surgery service contacted. Patient admitted for definitive management and treatment. Medical Records I reviewed the patient's medical records. Lab Data I reviewed the patient's lab results. : 11/02/21 03:05 11/02/21 03:05 Labs/Radiology: Radiology Impressions Abdomen/Pelvis CT 10/30/21 17:40 IMPRESSION: 1. Acute appendicitis. 2. Low-density 3.4 cm left adrenal nodule is consistent with a benign adenoma. No imaging follow-up is recommended. ADDENDUM: 10/30/21 837 THIS REPORT CONTAINS FINDINGS THAT MAY BE CRITICAL TO PATIENT CARE. The findings were verbally communicated via telephone conference with Kenny Monae at 7:04 PM CDT on 10/30/2021. The findings were acknowledged and understood. ADDENDUM: 10/30/21 734 Possible nodular wall thickening in the gallbladder fundus. A neoplastic process cannot be excluded. Follow-up ultrasound is recommended. Laboratory Results WBC 17.2 10^3/uL (4.0-10.0) H 10/30/21 18:20 RBC 4.55 10^6/uL (4.1-5.3) 10/30/21 18:20 Hgb 14.6 g/dL (11.7-16.6) 10/30/21 18:20 Hct 44.2 % (42.0-52.0) 10/30/21 18:20 MCV 97.1 fl (80-94) H 10/30/21 18:20 MCH 32.1 pg (28.0-34.0) 10/30/21 18:20 MCHC 33.0 g/dL (30.0-36.0) 10/30/21 18:20 RDW 13.5 % (12.1-15.1) 10/30/21 18:20 Plt Count 239 10^3/cmm (130-400) 10/30/21 18:20 MPV 8.7 fL (7.4-10.4) 10/30/21 18:20 Neut % (Auto) 84.7 % 10/30/21 18:20 Lymph % (Auto) 7.4 % 10/30/21 18:20 George % (Auto) 6.6 % 10/30/21 18:20 Eos % (Auto) 0.0 % 10/30/21 18:20 Baso % (Auto) 0.3 % 10/30/21 18:20 Neut # (Auto) 14.57 10^3/uL (1.8-7.7) H 10/30/21 18:20 Lymph # (Auto) 1.3 10^3/uL (0.8-4.8) 10/30/21 18:20 George # (Auto) 1.1 10^3/uL (0.2-0.9) H 10/30/21 18:20 Eos # (Auto) 0.0 10^3/uL (0.0-0.8) 10/30/21 18:20 Baso # (Auto) 0.1 10^3/uL (0.0-0.1) 10/30/21 18:20 Nucleated RBC % (auto) 0 % 10/30/21 18: Nucleated RBCs # 0.0 /100WBC 10/30/21 18:20 Sodium 129 mmol/L (136-145) L 10/30/21 18:20 Potassium 3.6 mmol/L (3.5-5.1) 10/30/21 18:20 Chloride 92 mmol/L (98-107) L 10/30/21 18:20 Carbon Dioxide 27 mmol/L (22-29) 10/30/21 18:20 Anion Gap 13.6 (5-19) 10/30/21 18:20 BUN 17 mg/dL (8-23) 10/30/21 18:20 Creatinine 0.7 mg/dL (0.7-1.2) 10/30/21 18:20 GFR Calculation 114.3 mL/min (90-130) 10/30/21 18:20 Glucose 92 mg/dL (65-115) 10/30/21 18:20 Calculated Osmolality 269 mOsm/kg (285-295) L 10/30/21 18:20 Lactate 1.3 mmol/L (0.5-2.2) 10/30/21 18:20 Calcium 9.2 mg/dL (8.5-10.5) 10/30/21 18:20 Phosphorus 2.8 mg/dL (2.5-4.5) 10/30/21 18:20 Magnesium 1.9 mg/dL (1.7-2.3) 10/30/21 18:20 Total Bilirubin 1.0 mg/dL (0.15-1.2) 10/30/21 18:20 AST 25 U/L (0-40) 10/30/21 18:20 ALT 16 U/L (0-41) 10/30/21 18:20 Alkaline Phosphatase 54 IU/L (40-130) 10/30/21 18:20 Total Protein 7.0 g/dL (6.6-8.7) 10/30/21 18:20 Albumin 3.6 g/dL (3.5-5.2) 10/30/21 18:20 Globulin 3.4 g/dL (1.3-4.6) 10/30/21 18:20 Lipase 13 U/L (13-60) 10/30/21 18:20 TSH 2.74 uIU/mL (0.27-4.20) 10/30/21 18:20 Discharge Plan Discharge Patient Disposition: Admitted As Inpatient Admit Provider: Jamarcus Vargas Clinical Impression: Acute appendicitis, Sepsis Condition: Stable Discharge Diet: Usual diet Discharge Activity: Limit activity as instructed Coding Level of Care Code ED [employer] Director for Chg Hakeem
--- NOTE | 2021-10-30 17:40 | CTR_ITS ---
PROCEDURE INFORMATION: Exam: CT Abdomen And Pelvis With Contrast Exam date and time: 10/30/2021 6:05 PM Age: 61 years old Clinical indication: Abdominal pain; Prior surgery; Surgery date: 6+ months; Surgery type: Umbilical hernia repair; Patient HX: Diffuse abdomen pain prior hernia repair; Additional info: Abdominal pain, diffuse TECHNIQUE: Imaging protocol: Computed tomography of the abdomen and pelvis with contrast. Radiation optimization: All CT scans at this facility use at least one of these dose optimization techniques: automated exposure control; mA and/or kV adjustment per patient size (includes targeted exams where dose is matched to clinical indication); or iterative reconstruction. Contrast material: OMNI 300; Contrast volume: 95 ml; Contrast route: INTRAVENOUS (IV); COMPARISON: [facility] hepatobiliary w phar* [id number] 06/06/2020 8:00 AM RADIATION DOSE METRICS: Total DLP (mGy-cm): 1928.3 FINDINGS: Tubes, catheters and devices: Heart: Coronary artery calcifications. Liver: Normal. No mass. Gallbladder and bile ducts: Small calcified stones and sludge in the gallbladder. Possible nodular wall thickening in the fundus of the gallbladder. The bile ducts are normal. Pancreas: Normal. No ductal dilation. Spleen: Normal. No splenomegaly. Adrenal glands: 3.4 cm left adrenal nodule, Hounsfield units 34. The right adrenal is normal. Kidneys and ureters: Normal. No hydronephrosis. Stomach and bowel: Diverticulosis of the distal colon. No diverticulitis. The stomach and small bowel are unremarkable. No wall thickening or obstruction. Appendix: Dilated inflamed appendix measuring 15 mm on diameter, with periappendiceal fat stranding. Intraperitoneal space: Unremarkable. No free air. No significant fluid collection. Vasculature: Arterial calcifications. No aneurysm. Lymph nodes: Unremarkable. No enlarged lymph nodes. Urinary bladder: Unremarkable as visualized. Reproductive: Mildly enlarged prostate. Bones/joints: Mild degenerative changes of the spine. No fracture. Soft tissues: Anterior laparotomy scar with mesh and metal anchors. 2.1 x 7.0 x 6.2 cm triangular shaped fluid collection in the abdominal wall, superficial to the mesh is most likely postsurgical seroma. Fat containing bilateral inguinal hernias. CT/CT abdomen pelvis w con* [id number] IMPRESSION: 1. Acute appendicitis. 2. Low-density 3.4 cm left adrenal nodule is consistent with a benign adenoma. No imaging follow-up is recommended.
[2021-10-30] MEDS: iohexol 300 mg/mL 100 mL Btl IV (18:06)
[2021-10-30 18:29] LABS: Basophils # 0.1 10^3/uL (0.0-0.1); Basophils % 0.3 %; Hematocrit 44.2 % (42.0-52.0); Hemoglobin 14.6 g/dL (11.7-16.6); Lymphocytes # 1.3 10^3/uL (0.8-4.8); Lymphocytes % 7.4 %; Mean Corpuscular Hemoglobin 32.1 pg (28.0-34.0); Mean Corpuscular Volume 97.1 fl (80-94); Mean Platelet Volume 8.7 fL (7.4-10.4); Monocytes # 1.1 10^3/uL (0.2-0.9); Monocytes % 6.6 %; Neutrophils # 14.57 10^3/uL (1.8-7.7); Neutrophils % 84.7 %; Nucleated Red Blood Cells % 0 %; Platelet Count 239 10^3/cmm (130-400); Red Blood Count 4.55 10^6/uL (4.1-5.3); Red Cell Distribution Width 13.5 % (12.1-15.1); White Blood Count 17.2 10^3/uL (4.0-10.0)
[2021-10-30] MEDS: morphine 4 mg/mL SDV 1 mL IVP (18:31)
[2021-10-30] MEDS: lidocaine 2% viscous 15 ML, aluminum-mag hydrox-simethicon 30 ML, sucralfate oral liq 1 GM PO (18:32)
[2021-10-30 18:56] LABS: Alanine Aminotransferase 16 U/L (0-41); Albumin Level 3.6 g/dL (3.5-5.2); Alkaline Phosphatase 54 IU/L (40-130); Anion Gap 13.6 (5-19); Aspartate Amino Transferase 25 U/L (0-40); Blood Urea Nitrogen 17 mg/dL (8-23); Calcium 9.2 mg/dL (8.5-10.5); Carbon Dioxide 27 mmol/L (22-29); Chloride 92 mmol/L (98-107); Globulin 3.4 g/dL (1.3-4.6); Glomerular Filtration Rate 114.3 mL/min (90-130); Glucose 92 mg/dL (65-115); Lipase 13 U/L (13-60); Osmolality Calculated 269 mOsm/kg (285-295); Potassium 3.6 mmol/L (3.5-5.1); Sodium 129 mmol/L (136-145)
[2021-10-30 19:19] LABS: Lactate (Lactic Acid level) 1.3 mmol/L (0.5-2.2)
[2021-10-30] MEDS: sodium chloride 0.9% 1,000 ML 999 ML IV (19:40)
[2021-10-30] MEDS: piperacillin-tazobactam 4.5 GM in sodium chloride 0.9% (plus) 50 ML IV (19:46)
--- NOTE | 2021-10-30 19:57 | P.CONIM_ITS ---
Providers/Reason For Consult Consulting Physician/Specialty*: General Surgery Jamarcus Vargas MD Reason for Consult*: Acute appendicitis Primary Care Provider: SIRENA Erickson History of Present Illness History of Present Illness Sam Henson is a 61 year old male who began having some epigastric discomfort 2 days ago. He said it persisted yesterday and he was somewhat nauseated but never vomited. He had a normal but fairly small bowel movement 2 days ago. He has had some chills at home and felt like he had a fever but never took his temperature. He says the pain seems to have moved perhaps a little lower on his abdomen but he still feels like the pain is rather diffuse. He denies any changes in bowel habits since his normal but small bowel movement 2 days ago. The patient came to the emergency department and a CAT scan revealed changes consistent with acute appendicitis. Review of Systems General: Reports: 10 or more systems reviewed and unremarkable except in HPI and below Const: Reports: chills GI: Reports: abdominal pain and nausea; Denies: vomiting or hematochezia Medications/Allergies Home Medications Medication Instructions Recorded Confirmed Last Taken Type albuterol sulfate 2.5 mg (3 mL) INHALATION Q4H PRN 01/25/20 10/30/21 04/16/20 Rx #540 ml aspirin 81 mg tablet,delayed 81 mg PO DAILY #90 tab 03/19/20 10/30/21 10/30/21 Rx release (Adult Aspirin Regimen) duloxetine 30 mg capsule,delayed 60 mg PO DAILY cap 07/09/20 10/30/21 10/30/21 History release furosemide 20 mg tablet (Lasix) 20 mg PO DAILY #30 tab 11/21/20 10/30/21 10/29/21 Rx omeprazole 20 mg capsule,delayed 40 mg PO DAILY cap 01/15/21 10/30/21 10/30/21 History release tiotropium bromide 18 mcg capsule See Rx Instructions .ROUTE 01/21/21 10/30/21 10/30/21 Rx with inhalation device (Spiriva .COMPLEX #30 inh with HandiHaler) albuterol sulfate 90 mcg/actuation 2 inh INHALATION Q4H PRN #18 g 02/21/21 10/30/21 Unknown Rx aerosol inhaler budesonide-formoterol HFA 160 2 inh INHALATION DAILY #10.2 g 02/25/21 10/30/21 10/30/21 Rx mcg-4.5 mcg/actuation aerosol inhaler metoprolol tartrate 25 mg tablet 25 mg PO BID #180 tab 02/25/21 10/30/21 10/30/21 Rx lisinopril 5 mg tablet 5 mg PO DAILY #90 tab 03/04/21 10/30/21 10/30/21 Rx atorvastatin 40 mg tablet 40 mg PO DAILY #90 tab 05/14/21 10/30/21 10/29/21 Rx amiodarone 200 mg tablet 200 mg PO DAILY #100 tab 09/24/21 10/30/21 10/30/21 Rx nitroglycerin 0.4 mg sublingual See Rx Instructions .ROUTE 10/30/21 10/30/21 Unknown Rx tablet .COMPLEX #50 ea Allergies Allergy/AdvReac Type Severity Reaction Status Date / Time ciprofloxacin Allergy ALGY-Hives Verified 10/30/21 16:56 Current Medications Generic Name Dose Route Start Last Admin Trade Name Freq PRN Reason Stop Dose Admin Sodium Chloride 1,000 mls @ 999 mls/hr 10/30/21 18:59 10/30/21 19:40 Sodium Chloride 0.9% IV 10/30/21 19:59 999 mls/hr .Q1H1M ONE Administration PFSH Acute PFSH: Medical History (Updated 10/30/21 @ 19:19 by Kenny Monae MD) Atypical angina COPD (chronic obstructive pulmonary disease) Coronary artery disease Dyslipidemia High risk medication use HTN (hypertension) Obstructive sleep apnea Palpitations PND (post-nasal drip) Sustained ventricular tachycardia Surgical History (Updated 10/30/21 @ 20:03 by Jamarcus Vargas MD) H/O hernia repair Periumbilical with mesh H/O knee surgery Bilateral arthroscopy History of surgical removal of ganglion cyst Family History Father Cancer Anesthesia complication Diabetes Mother Cancer Dementia Family/Other Stroke Chronic kidney disease (CKD) Lung disease Dementia Grandmother Stroke Dementia CAD (coronary artery disease) Grandfather CAD (coronary artery disease) Denies family history of Clotting disorder Suicide Bleeding disorder Social History Smoking and tobacco status: current every day smoker cigarettes Packs smoked per day: 0.5 Years cigarettes smoked: 40 [ Other cigarette details: Hx of 1 PPD x 25 Years] Quit status (tobacco): considering quitting Second hand smoke exposure: No Smoking risk assessment/counseling performed?: Yes Alcohol intake: never Lives independently: Yes Household members: spouse and family Marital status: service: No Current occupational status: employed Current occupation: [employer] Current occupational exposures/hazards: No Pets and animals: Yes History of recent travel: No Current gender identity: Male Vitals/I&O/Wt Last Vital Signs Temp 98.4 F 10/30/21 18:38 Pulse 78 10/30/21 18:38 Resp 19 H 10/30/21 18:38 BP 110/59 10/30/21 18:38 Pulse Ox 94 10/30/21 18:38 Weight last 48 hrs Weight 265 lb Physical Exam Narrative: The patient was encountered in his room in the emergency department. He does not appear to be in any acute distress but acts like he just does not feel very well. The pupils seem equal. No carotid bruits are heard. The lungs reveal some wheezes. The heart seems regular. The abdomen is moderately obese. Bowel sounds are present, however. The patient seems the have some rather scattered tenderness in the abdomen with the most significant area being in the right mid abdomen according to the level of his umbilicus (he does have somewhat of a pannus). Rovsing's sign is equivocal. The extremities reveal no edema. Neurologically the patient appears to be grossly intact. Data : 10/30/21 18:20 10/30/21 18:20 Micro: Microbiology 10/30/21 19:38 Blood Culture - Preliminary Blood SPECIMEN COLLECTED 10/30/21 19:43 Blood Culture - Preliminary Blood SPECIMEN COLLECTED CT Abd/Pel: Radiologist's impression: CT abdomen/pelvis 10/30/2021 IMPRESSION: 1. Acute appendicitis. 2. Low-density 3.4 cm left adrenal nodule is consistent with a benign adenoma.? No imaging follow-up is recommended.? A&P Assessment and plan (1) Acute appendicitis: CT reviewed. I agree with the assessment of acute appendicitis. We have discussed both conservative and surgical management of appendicitis. Both lapar oscopic and open techniques of surgery were discussed. Risks of surgery including bleeding, infection, internal organ injury, chances of a larger procedure, etc. were all gone over. The patient seems understand and is agreeable to proceeding with surgery. The patient had a little bit of solid food earlier this morning but has been n.p.o. other than some water since. I am going make arrangements for a laparoscopic or possibly open appendectomy tonight. Due to his somewhat extensive medical history, the emergency room physician notified me that he was going to have the patient admitted to the hospitalist service. I appreciate their help. Status: Acute Consult Attestations Medical Necessity Statement: See admitting service's notation. Coding Level of Care Code Acute Delivery Motorcycle Driver for Billy Palacio Diagnoses Acute appendicitis K35.80
--- NOTE | 2021-10-30 20:05 | P.HP_ITS ---
Providers/Chief Complaint Primary Care Provider: ISRENA Erickson Chief Complaint: ABD pain History of Present Illness Sam Henson is a 61 year old male with a past medical history of CAD, chronic respiratory failure with hypoxia, COPD Gold stage D, history of smoking, dyslipidemia, history of sustained V. tach, ROWDY, hypertension, who presents to [facility] for abdominal pain, constipation, nausea since Thursday. Patient tells me that since Thursday he developed significant abdominal pain, diffuse, primarily in the right lower quadrant associate with nausea, fevers, decreased stooling since Thursday. He tells me that he has not been able to keep anything down, his last meal was this morning when he had some corn flakes but was barely able to keep it down. Low-grade fevers and chills. Reports nausea and vomiting. Continues to smoke. No history of COPD exacerbation. No chest pain. Here at [facility] he was found to have acute appendicitis. Was given antibiotics. There is plans on surgical intervention. Review of Systems Const: Reports: fever(s) and chills Eyes: Denies: change in vision ENMT: Denies: nasal congestion Card: Denies: chest pain, palpitations or syncope Resp: Denies: dyspnea, productive cough or non-productive cough GI: Reports: abdominal pain, nausea, vomiting, early satiety and constipation : Denies: flank pain, difficulty urinating, dysuria or urinary frequency Musc: Denies: neck pain or back pain Skin/Breast: Denies: rash Neuro: Denies: headache(s) or dizziness Medications/Allergies Home Medications Medication Instructions Recorded Confirmed Last Taken Type albuterol sulfate 2.5 mg (3 mL) INHALATION Q4H PRN 01/25/20 10/30/21 04/16/20 Rx #540 ml aspirin 81 mg tablet,delayed 81 mg PO DAILY #90 tab 03/19/20 10/30/21 10/30/21 Rx release (Adult Aspirin Regimen) duloxetine 30 mg capsule,delayed 60 mg PO DAILY cap 07/09/20 10/30/21 10/30/21 History release furosemide 20 mg tablet (Lasix) 20 mg PO DAILY #30 tab 11/21/20 10/30/21 10/29/21 Rx omeprazole 20 mg capsule,delayed 40 mg PO DAILY cap 01/15/21 10/30/21 10/30/21 History release tiotropium bromide 18 mcg capsule See Rx Instructions .ROUTE 01/21/21 10/30/21 10/30/21 Rx with inhalation device (Spiriva .COMPLEX #30 inh with HandiHaler) albuterol sulfate 90 mcg/actuation 2 inh INHALATION Q4H PRN #18 g 02/21/21 10/30/21 Unknown Rx aerosol inhaler budesonide-formoterol HFA 160 2 inh INHALATION DAILY #10.2 g 02/25/21 10/30/21 10/30/21 Rx mcg-4.5 mcg/actuation aerosol inhaler metoprolol tartrate 25 mg tablet 25 mg PO BID #180 tab 02/25/21 10/30/21 10/30/21 Rx lisinopril 5 mg tablet 5 mg PO DAILY #90 tab 03/04/21 10/30/21 10/30/21 Rx atorvastatin 40 mg tablet 40 mg PO DAILY #90 tab 05/14/21 10/30/21 10/29/21 Rx amiodarone 200 mg tablet 200 mg PO DAILY #100 tab 09/24/21 10/30/21 10/30/21 Rx nitroglycerin 0.4 mg sublingual See Rx Instructions .ROUTE 10/30/21 10/30/21 Unknown Rx tablet .COMPLEX #50 ea Allergies Allergy/AdvReac Type Severity Reaction Status Date / Time ciprofloxacin Allergy ALGY-Hives Verified 10/30/21 16:56 PFSH Acute PFSH: Medical History Atypical angina COPD (chronic obstructive pulmonary disease) Coronary artery disease Dyslipidemia High risk medication use HTN (hypertension) Obstructive sleep apnea Palpitations PND (post-nasal drip) Sustained ventricular tachycardia Surgical History H/O hernia repair Periumbilical with mesh H/O knee surgery Bilateral arthroscopy History of surgical removal of ganglion cyst Family History Father Cancer Anesthesia complication Diabetes Mother Cancer Dementia Family/Other Stroke Chronic kidney disease (CKD) Lung disease Dementia Grandmother Stroke Dementia CAD (coronary artery disease) Grandfather CAD (coronary artery disease) Denies family history of Clotting disorder Suicide Bleeding disorder Social History Smoking and tobacco status: current every day smoker cigarettes Packs smoked per day: 0.5 Years cigarettes smoked: 40 [ Other cigarette details: Hx of 1 PPD x 25 Years] Quit status (tobacco): considering quitting Second hand smoke exposure: No Smoking risk assessment/counseling performed?: Yes Alcohol intake: never Lives independently: Yes Household members: spouse and family Marital status: service: No Current occupational status: employed Current occupation: [employer] Current occupational exposures/hazards: No Pets and animals: Yes History of recent travel: No Current gender identity: Male Vitals/I&O/Wt Last Vital Signs Temp 98.4 F 10/30/21 18:38 Pulse 78 10/30/21 18:38 Resp 19 H 10/30/21 18:38 BP 110/59 10/30/21 18:38 Pulse Ox 94 10/30/21 18:38 Weight last 48 hrs Weight 120.202 kg Physical Exam Const: COMMON NORMALS: no acute distress and patient oriented x3 HENMT: COMMON NORMALS: normocephalic HEAD & SCALP: normocephalic Eye: COMMON NORMALS: Equal, round and reactive pupils present and EOMs intact bilaterally Resp: COMMON NORMALS: normal respiratory effort, No retractions and No use of accessory muscles AUSCULTATION: wheezes Cardio: COMMON NORMALS: no JVD, regular rate, regular rhythm, S1 normal heart sound present and S2 normal heart sound present RATE: regular rate RHYTHM: regular rhythm HEART SOUNDS: S1 normal heart sound present and S2 normal heart sound present GI: INSPECTION: Yes abdominal distension AUSCULTATION: Yes Hypoactive bowel sounds present PALPATION: Yes Soft to palpation, Yes Tenderness to palpation present (GI) Details: RLQ, No Guarding due to palpation present (GI) and No Rigid due to palpation Extremity: COMMON NORMALS: capillary refill normal, no clubbing, cyanosis or edema, no calf tenderness and no pedal edema Neuro: COMMON NORMALS: patient oriented x3 Psych: COMMON NORMALS: mental status grossly normal Data : 10/30/21 18:20 10/30/21 18:20 Micro: Microbiology 10/30/21 19:38 Blood Culture - Preliminary Blood SPECIMEN COLLECTED 10/30/21 19:43 Blood Culture - Preliminary Blood SPECIMEN COLLECTED A&P Assessment and plan (1) Acute appendicitis: Status: Acute (2) Hyponatremia: Status: Acute (3) Morbid obesity with BMI of 40.0-44.9, adult: Status: Acute (4) Chronic respiratory failure with hypoxia: Status: Acute (5) Dyslipidemia: Status: Acute (6) Coronary artery disease: Status: Acute Qualifiers: Coronary Disease-Associated Artery/Lesion type: [place] artery [place] vs. transplanted heart: [place] heart Associated angina: with stable angina Qualified Code(s): I25.118 - Atherosclerotic heart disease of [place] coronary artery with other forms of angina pectoris (7) Ventricular tachycardia: Status: Acute (8) Obstructive sleep apnea: Status: Acute (9) COPD (chronic obstructive pulmonary disease): Status: Acute Qualifiers: COPD type: COPD with acute exacerbation Qualified Code(s): J44.1 - Chronic obstructive pulmonary disease with (acute) exacerbation Plan Acute appendicitis -White blood cell count 17.2 -CT scan shows acute appendicitis -Is receiving Zosyn -Has gold D COPD, ROWDY, currently with wheezing, continues to smoke -History of CAD, coronary angiogram February 2020 ?Normal left main.? Left artery descending artery gives of a high diagonal branch which bifurcates proximally. One of the bifurcation branches was found to have a 95% proximal lesion.? Other vessels were found to have mild diffuse disease.? The right coronary artery was found to be diffusely ectatic with no significant stenotic lesions.? LV angiogram reveals ejection fraction around 50%.? LVEDP was 24 mmHg. Medically managed -No complaints of chest pain -No history of renal failure, no history of pulmonary emboli Plan: -We will be proceeding to surgical intervention -Monitor closely with postsurgically for respiratory failure -We will give 125 Solu-Medrol, 40 every 12 hours thereafter -DuoNeb treatment -CPAP -Continue Zosyn -General surgery on consult -Full code -SCDs for DVT prophylaxis, Lovenox will be started after surgery COPD, in exacerbation, with wheezing on exam, but no complaints of shortness of breath, will given Solu-Medrol, duo nebs as above CAD, as above ROWDY as above Hyponatremia likely sec to dehydration, IV fluids, as above History of ventricular tachycardia, continue metoprolol, telemetry monitoring Attestations Medical Necessity Statement*: Patient requires hospitalization for acute appendicitis, inpatient, greater than 2 midnights Coding Level of Care Code 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 transplanted heart: [place] heart Associated angina: with stable angina Ventricular tachycardia I47.2 Obstructive sleep apnea G47.33 COPD (chronic obstructive pulmonary disease) J44.1 COPD type: COPD with acute exacerbation
[2021-10-30 20:33] LABS: Magnesium 1.9 mg/dL (1.7-2.3); Phosphorus 2.8 mg/dL (2.5-4.5)
--- NOTE | 2021-10-30 20:55 | P.ANESASSM_ITS ---
Pre-Anesthetic Assessment Height/Weight: Height 1.7 m Weight 120.202 kg Temp Pulse Resp BP Pulse Ox 98.4 F 79 18 115/71 99 10/30/21 18:38 10/30/21 20:15 10/30/21 20:15 10/30/21 20:15 10/30/21 20:15 Preop Diagnosis: Occult blood in stool Operation Date: 10/30/21 20:05 Proposed Procedures p Laparoscopic Appendectomy(Not Applicable) - Jamarcus Vargas MD Familial anesthetic complications: None Was Beta Elpidio taken within 24 hours: Yes Was Clonidine taken within 24 hours: N/A Social Tobacco and No alcohol Exam alert, oriented x 3 and regular rate & rhythm Airway Submandibular: within normal limits Cervical ROM: within normal limits Mallampati: Class II Dentition: chipped Comments: Comments: Poor dentition, missing several Pulmonary Chronic Obstructive Pulmonary Disease Home O2 CV/HEM Arrythmia (SVT), Coronary Artery Disease, Congestive Heart Failure, Hypertension and Peripheral Vascular Disease GI Gastroesophageal Reflux Disease Metabolic Morbid Obesity Anesthetic Plan ASA status: 3E Anesthesia: General Risk of > 500 ml blood loss (7ml/kg in children): No Medications/Allergies Home Medications Medication Instructions Recorded Confirmed Last Taken Type albuterol sulfate 2.5 mg (3 mL) INHALATION Q4H PRN 01/25/20 10/30/21 04/16/20 Rx #540 ml aspirin 81 mg tablet,delayed 81 mg PO DAILY #90 tab 03/19/20 10/30/21 10/30/21 Rx release (Adult Aspirin Regimen) duloxetine 30 mg capsule,delayed 60 mg PO DAILY cap 07/09/20 10/30/21 10/30/21 History release furosemide 20 mg tablet (Lasix) 20 mg PO DAILY #30 tab 11/21/20 10/30/21 10/29/21 Rx omeprazole 20 mg capsule,delayed 40 mg PO DAILY cap 01/15/21 10/30/21 10/30/21 History release tiotropium bromide 18 mcg capsule See Rx Instructions .ROUTE 01/21/21 10/30/21 10/30/21 Rx with inhalation device (Spiriva .COMPLEX #30 inh with HandiHaler) albuterol sulfate 90 mcg/actuation 2 inh INHALATION Q4H PRN #18 g 02/21/21 10/30/21 Unknown Rx aerosol inhaler budesonide-formoterol HFA 160 2 inh INHALATION DAILY #10.2 g 02/25/21 10/30/21 10/30/21 Rx mcg-4.5 mcg/actuation aerosol inhaler metoprolol tartrate 25 mg tablet 25 mg PO BID #180 tab 02/25/21 10/30/21 10/30/21 Rx lisinopril 5 mg tablet 5 mg PO DAILY #90 tab 03/04/21 10/30/21 10/30/21 Rx atorvastatin 40 mg tablet 40 mg PO DAILY #90 tab 05/14/21 10/30/21 10/29/21 Rx amiodarone 200 mg tablet 200 mg PO DAILY #100 tab 09/24/21 10/30/21 10/30/21 Rx nitroglycerin 0.4 mg sublingual See Rx Instructions .ROUTE 10/30/21 10/30/21 Unknown Rx tablet .COMPLEX #50 ea Allergies Allergy/AdvReac Type Severity Reaction Status Date / Time ciprofloxacin Allergy ALGY-Hives Verified 10/30/21 16:56 [facility] Anesthesia Medical History Atypical angina COPD (chronic obstructive pulmonary disease) Coronary artery disease Dyslipidemia High risk medication use HTN (hypertension) Obstructive sleep apnea Palpitations PND (post-nasal drip) Sustained ventricular tachycardia Surgical History H/O hernia repair Periumbilical with mesh H/O knee surgery Bilateral arthroscopy History of surgical removal of ganglion cyst Family History Father Cancer Anesthesia complication Diabetes Mother Cancer Dementia Family/Other Stroke Chronic kidney disease (CKD) Lung disease Dementia Grandmother Stroke Dementia CAD (coronary artery disease) Grandfather CAD (coronary artery disease) Denies family history of Clotting disorder Suicide Bleeding disorder Social History Smoking and tobacco status: current every day smoker cigarettes Packs smoked per day: 0.5 Years cigarettes smoked: 40 [ Other cigarette details: Hx of 1 PPD x 25 Years] Quit status (tobacco): considering quitting Second hand smoke exposure: No Smoking risk assessment/counseling performed?: Yes Alcohol intake: never Lives independently: Yes Household members: spouse and family Marital status: service: No Current occupational status: employed Current occupation: [employer] Current occupational exposures/hazards: No Pets and animals: Yes History of recent travel: No Current gender identity: Male Data Anesthesia : 10/30/21 18:20 10/30/21 18:20 Short CBC 10/30/21 Range/Units 18:20 WBC 17.2 H (4.0-10.0) 10^3/uL Hgb 14.6 (11.7-16.6) g/dL Hct 44.2 (42.0-52.0) % MCV 97.1 H (80-94) fl Plt Count 239 (130-400) 10^3/cmm Neut % (Auto) 84.7 % Neut # (Auto) 14.57 H (1.8-7.7) 10^3/uL BMP 10/30/21 18:20 Sodium 129 L Potassium 3.6 Chloride 92 L Carbon Dioxide 27 BUN 17 Creatinine 0.7 Glucose 92 Calcium 9.2 Liver Function 10/30/21 Range/Units 18:20 Total Bilirubin 1.0 (0.15-1.2) mg/dL AST 25 (0-40) U/L ALT 16 (0-41) U/L Alkaline Phosphatase 54 (40-130) IU/L Albumin 3.6 (3.5-5.2) g/dL Microbiology 10/30/21 19:38 Blood Culture - Preliminary Blood SPECIMEN COLLECTED 10/30/21 19:43 Blood Culture - Preliminary Blood SPECIMEN COLLECTED Cardiac Studies: Echocardiogram Ultrasound 01/30/20 Sestamibi Stress Test (Cardiology) 02/24/20 Cardiac Event Monitor 04/23/20 Holter Monitor 03/20/20
[2021-10-30 21:15] LABS: Thyroid Stimulating Hormone 2.74 uIU/mL (0.27-4.20)
--- NOTE | 2021-10-30 22:12 | P.OP_ITS ---
Operative Report Date of procedure: October 30, 2021 Pre-op diagnosis: Preop Diagnosis Acute appendicitis. Post-op diagnosis: Same. Procedure done: Laparoscopic appendectomy. Specimens removed/disposition: Appendix. Surgeon: General Surgery Jamarcus Vargas MD Estimated blood loss: 10 mL. Complications: None. Procedure: The patient was brought to the Operating Room and was placed in a supine position on the operating room table. General endotracheal anesthesia was induced. The abdomen was prepped and draped in a sterile fashion. A small vertical incision was carried out in the mid aspect of the epigastrium above the patient's mesh that he had placed previously for a hernia repair. Blunt dissection was carried out down to the fascia. The midline fascia was incised. The underlying peritoneum was opened bluntly and the Starla port was placed directly into the peritoneal cavity and was held in place with the inflatable balloon. The peritoneal cavity was insufflated with carbon dioxide. The laparoscope was used to inspect the peritoneal cavity. The patient had some omental adhesions to the area of his mesh from his periumbilical hernia repair. No other gross abnormalities were immediately noted. Two 5-millimeter ports were placed on the left side of the abdomen under direct vision one below the umbilicus and one above the umbilicus. The patient was tilted in a Trendelenburg position and slightly to the left side. A laparoscopic Anu was used to elevate the cecum and the appendix was identified. The appendix was inflamed and was adhesed somewhat posteriorly. The mesoappendix was edematous. There was no evidence of gross appendiceal perforation. The appendix was freed using blunt dissection and was then elevated. The mesoappendix was divided using cautery to maintain hemostasis at the base of the appendix. The base of the appendix appeared healthy and was divided using an endoscopic stapler. The appendix was removed from the peritoneal cavity after being placed in a laparoscopic bag. The right lower quadrant and pelvis were irrigated. The staple line on the cecum was identified and appeared to be in good condition. The Starla port was removed from the epigastric site. The fascial opening was closed with some interrupted sutures of 0 Ethibond. A GraNee needle was used to get a fairly wide suture at this site. A final round of irrigation was carried out in the right lower quadrant and the pelvis. No ongoing problems were seen. The remaining ports were removed from the abdominal wall as the pneumoperitoneum was evacuated. All skin incisions were closed using inverted interrupted sutures of 4-0 Vicryl. Benzoin and Steri-Strips were placed over the incisions and Band- Aids followed. The patient was taken to the Recovery Room in stable condition postoperatively.
[2021-10-30] MEDS: ipratropium-albuterol 3 mL Neb INHALATION (22:28)
[2021-10-31] VITALS (21 sets, daily range): BP systolic 112–152; BP diastolic 62–83; PULSE 66–89; RESP 16–24; TEMP 36.6–37.1; O2SAT 92–98
[2021-10-31] MEDS: heparin 5,000 unit/mL INJ 1 mL 5000 UNIT SUBCUT ×3 (00:17→22:54)
[2021-10-31] MEDS: morphine 4 mg/mL SDV 1 mL IVP ×2 (00:17→04:43)
[2021-10-31] MEDS: pantoprazole 40 mg SDV IVP ×2 (00:18→20:04)
[2021-10-31] MEDS: dextrose 5%-sod chloride 0.9% 1,000 ML 75 ML IV ×2 (00:19→22:54)
[2021-10-31 01:07] LABS: Add Urine Microscopic? NO; Bilirubin Urine Neg (Negative); Blood Urine Neg (Negative); Charge for UA Resulting for Rev; Glucose Urine UA Norm (Normal); Ketones Urine 1+ (Negative); Leukocyte Esterase Urine Negative (Negative); Nitrate Urine Negative (Negative); Protein Urine Neg (Negative); Urine Appearance Clear (CLEAR); Urine Color Yellow (Yellow); Urobilinogen Urine Norm (Negative); pH Urine 5 (5-7)
[2021-10-31 03:12] LABS: Basophils % 0.3 %; Hemoglobin 14.8 g/dL (11.7-16.6); Lymphocytes # 0.5 10^3/uL (0.8-4.8); Lymphocytes % 4.6 %; Mean Corpuscular HGB Conc 32.9 g/dL (30.0-36.0); Mean Corpuscular Hemoglobin 32.2 pg (28.0-34.0); Mean Platelet Volume 9.2 fL (7.4-10.4); Monocytes # 0.4 10^3/uL (0.2-0.9); Monocytes % 3.4 %; Neutrophils # 9.66 10^3/uL (1.8-7.7); Neutrophils % 91.2 %; Nucleated Red Blood Cells % 0 %; Platelet Count 249 10^3/cmm (130-400); Red Blood Count 4.59 10^6/uL (4.1-5.3); Red Cell Distribution Width 13.6 % (12.1-15.1); White Blood Count 10.6 10^3/uL (4.0-10.0)
[2021-10-31 03:30] LABS: Alanine Aminotransferase 17 U/L (0-41); Albumin Level 3.4 g/dL (3.5-5.2); Alkaline Phosphatase 54 IU/L (40-130); Aspartate Amino Transferase 26 U/L (0-40); Blood Urea Nitrogen 15 mg/dL (8-23); Calcium 8.8 mg/dL (8.5-10.5); Carbon Dioxide 23 mmol/L (22-29); Chloride 100 mmol/L (98-107); Globulin 3.5 g/dL (1.3-4.6); Glomerular Filtration Rate 114.3 mL/min (90-130); Glucose 140 mg/dL (65-115); Magnesium 1.8 mg/dL (1.7-2.3); Osmolality Calculated 279 mOsm/kg (285-295); Phosphorus 2.4 mg/dL (2.5-4.5); Sodium 133 mmol/L (136-145); Total Bilirubin 1.1 mg/dL (0.15-1.2); Total Protein 6.9 g/dL (6.6-8.7)
[2021-10-31 03:41] LABS: NT Pro B Type Natriuretic Pept 193 pg/mL (0-125)
[2021-10-31] MEDS: piperacillin-tazobactam 3.375 GM in sodium chloride 0.9% (plus) 50 ML IV ×3 (04:29→20:04)
--- NOTE | 2021-10-31 06:37 | ANE.PACU2 ---
Inpatient post-anesthesia follow up: Airway intact: Yes Vital signs: Temperature 98.2 F Pulse Rate 86 Respiratory Rate 20 Blood Pressure 149/83 Pulse Oximetry 93 Oxygen Delivery Me thod Nasal Cannula Oxygen Flow Rate 2 Fraction of Inspir ed Oxygen Hydration adequate: Yes Nausea and vomiting: No Pain level: 3 Mental status: Baseline
[2021-10-31] MEDS: ipratropium-albuterol 3 mL Neb INHALATION ×4 (07:43→20:41)
--- NOTE | 2021-10-31 08:58 | PM.PN ---
Subjective Subjective: The patient was pretty sore last night but says he is better this morning. He still has not been out of bed, however. He thinks he better spend another day in the hospital. He is not sure he is passing any flatus but he is tolerating clear liquids without any difficulty. Vitals/I&O/Wt Last Vital Signs Temp 98.7 F 10/31/21 07:35 Pulse 84 10/31/21 08:01 Resp 18 10/31/21 07:45 BP 140/79 10/31/21 07:35 Pulse Ox 93 10/31/21 07:45 10/30/21 10/31/21 10/31/21 22:59 06:59 14:59 Intake Total 50 / 1050 1000 / 1050 0 / 0 Output Total 20 / 470 450 / 470 Balance 30 / 580 550 / 580 0 / 0 Weight last 48 hrs Weight 265 lb Physical Exam Narrative: Afebrile. Bowel sounds are hypoactive. All the laparoscopic incisions look good. Data : 10/31/21 02:30 10/31/21 02:30 Micro: Microbiology 10/30/21 19:38 Blood Culture - Preliminary Blood SPECIMEN COLLECTED 10/30/21 19:43 Blood Culture - Preliminary Blood SPECIMEN COLLECTED A&P Assessment and plan (1) Acute appendicitis: Status post laparoscopic appendectomy on 10/30/2021. White blood cell count is improved and vital signs are stable. The patient is feeling better but has not been out of bed yet. He is not passing flatus. He does not seem tremendously motivated. I am going a get him up and ambulate him today and then advance his diet as his bowel function returns. Status: Acute Attestations Medical Necessity Statement*: See admitting service's notation. Coding Level of Care Code Acute Materials Management Manager for [facility] Diagnoses Acute appendicitis K35.80
[2021-10-31] MEDS: atorvastatin 40 mg Tablet PO (10:01)
[2021-10-31] MEDS: amiodarone 200 mg Tablet PO (10:01)
[2021-10-31] MEDS: duloxetine 60 mg Capsule PO (10:01)
[2021-10-31] MEDS: metoprolol tartrate 25 mg Tablet PO ×2 (10:02→17:27)
[2021-10-31] MEDS: aspirin 81 mg EC Tablet PO (10:02)
--- NOTE | 2021-10-31 11:11 | PC.CHAP ---
Pastoral Care Encounter/Spiritual Assessment Type of Contact [x] Declined corporate travel agent visit [] Patient/Family/Request visit [] Outpatient visit [] Follow-up visit [] Physician referral [] Code/Alert [] Routine visit [] Staff referral [] Actively dying [] Patient sleeping [] Family support [] [] Out of room [] Palliative care [] [] Receiving care in room [] Pre-surgical visit [] Trauma [] Long length of stay [] ICU visit [] Other: Relational/Emotional Strength [] Patient feels connected with others/family/visitors/staff [] Distress [] Loneliness/isolation [] Abandonment Spirituality of Patient [] Person of Jessica [] Attends Yazidi of their Jessica [] Believes in Prayer [] Reads Bible or Alevism materials [] There are Spiritual issues to be addressed Lab Technologist Interventions [] Prayer [] Active listening [] Non-anxious presence [] Spiritual/emotional support [] Crisis/trauma care [] Spiritual counseling [] Bereavement support [] Provided bereavement packet [] Provided Bible/devotional materials [] Provided toy/stuffed animal, coloring book to patient or family member [] Provided Communion [] Anointing/[place] [] Salvation [] Completed spiritual assessment [] Other: Impact on Illness or Injury [] Angry [] Fearful [] Anxious [] Often cries [] Exhaustion [] Unable to work [] Unable to attend catholic [] Unable to walk/stand [] Unable to read [] Unable to drive [] Unable to eat/drink [] Unable to sleep [] Unable to be with family [] Patient intubated [] Other: Summary Declined corporate travel agent visit Time spent with patient 5 mins
[2021-10-31 11:17] LABS: Iron 24 ug/dL (59-158); Percent Saturation 10.9 % (20-50); Total Iron Binding Capacity 220 mcg/dl; Unsaturated Iron Binding 196 ug/dL (112-347)
[2021-10-31] MEDS: HYDROcodone-acetaminophen 5-325 mg Tablet PO ×2 (11:34→20:03)
--- NOTE | 2021-10-31 12:59 | P.PN_ITS ---
Subjective Subjective: Admitted overnight. Underwent laparoscopic appendectomy last night per Dr. Soto. Today morning on examination sitting up comfortably in bed. States he still having some pain especially when he is coughing. He has been caught up to walk around. Has passed some flatus but no bowel movements y et. Is agreeable and looking forward to getting up and walking around Vitals/I&O/Wt Last Vital Signs Temp 98.4 F 10/31/21 11:49 Pulse 76 10/31/21 11:49 Resp 17 10/31/21 11:49 BP 138/74 10/31/21 11:49 Pulse Ox 98 10/31/21 11:49 10/30/21 10/31/21 10/31/21 22:59 06:59 14:59 Intake Total 50 / 50 1000 / 1050 50 / 50 Output Total 450 / 470 Balance 550 / 580 50 / 50 Weight last 48 hrs Weight 120.202 kg Physical Exam Const: COMMON NORMALS: no acute distress and patient oriented x3 HENMT: COMMON NORMALS: normocephalic HEAD & SCALP: normocephalic Eye: COMMON NORMALS: Equal, round and reactive pupils present and EOMs intact bilaterally PUPIL: Yes Equal, round and reactive pupils present Neck/C-Spine: COMMON NORMALS: no JVD Resp: COMMON NORMALS: normal respiratory effort, No retractions and No use of accessory muscles AUSCULTATION: wheezes Cardio: COMMON NORMALS: no JVD, regular rate, regular rhythm, S1 normal heart sound present and S2 normal heart sound present RATE: regular rate RHYTHM: regular rhythm HEART SOUNDS: S1 normal heart sound present and S2 normal heart sound present GI: COMMON NORMALS: Normal to inspection, nondistended, normoactive bowel sounds present, Soft to palpation, non-tender, no masses and no bruits INSPECTION: Yes abdominal distension AUSCULTATION: Yes Hypoactive bowel sounds present PALPATION: Yes Soft to palpation, Yes Tenderness to palpation present (GI), No Guarding due to palpation present (GI) and No Rigid due to palpation Extremity: COMMON NORMALS: capillary refill normal, no clubbing, cyanosis or edema, no calf tenderness and no pedal edema Neuro: COMMON NORMALS: patient oriented x3 Psych: COMMON NORMALS: mental status grossly normal Data : 10/31/21 02:30 10/31/21 02:30 Micro: Microbiology 10/30/21 19:38 Blood Culture - Preliminary Blood SPECIMEN COLLECTED 10/30/21 19:43 Blood Culture - Preliminary Blood SPECIMEN COLLECTED A&P Assessment and plan (1) Acute appendicitis: Status: Acute (2) Hyponatremia: Status: Acute (3) Morbid obesity with BMI of 40.0-44.9, adult: Status: Acute (4) Chronic respiratory failure with hypoxia: Status: Acute (5) Dyslipidemia: Status: Acute (6) Coronary artery disease: Status: Acute Qualifiers: Coronary Disease-Associated Artery/Lesion type: [place] artery [place] vs. transplanted heart: [place] heart Associated angina: with stable angina Qualified Code(s): I25.118 - Atherosclerotic heart disease of [place] coronary artery with other forms of angina pectoris (7) Ventricular tachycardia: Status: Acute (8) Obstructive sleep apnea: Status: Acute (9) COPD (chronic obstructive pulmonary disease): Status: Acute Qualifiers: COPD type: COPD with acute exacerbation Qualified Code(s): J44.1 - Chronic obstructive pulmonary disease with (acute) exacerbation Plan Acute appendicitis: Post appendectomy day 1. Appreciate surgical recommendations. Incentive spirometry. Physical therapy. Anticoagulation as per surgical team. Continue Zosyn for now. For now continue with D5 NS at 75 cc/h. History of COPD: No current exacerbation. Continue with DuoNeb every 6 hour. Oxygen supplementation keeping saturation over 88%. History of CAD: No active chest pain. Continue with aspirin, statin. History of VT: Continue home dose of amiodarone. Telemetry. Full code. NPO. Heparin for DVT prophylaxis. Protonix for PUD prophylaxis. Attestations Medical Necessity Statement*: Requires further hospitalization for postoperative care for laparoscopic appendectomy in setting of acute appendicitis Time Spent in Patient Care: Greater than 35 minutes Coding Level of Care Code Acute Blood Bank Specialist for [facility] Fwd Diagnoses Acute appendicitis K35.80 Hyponatremia E87.1 Morbid obesity with BMI of 40.0-44.9, adult E66.01; Z68.41 Chronic respiratory failure with hypoxia J96.11 Dyslipidemia E78.5 Coronary artery disease I25.118 Coronary Disease-Associated Artery/Lesion type: [place] artery [place] vs. transplanted heart: [place] heart Associated angina: with stable angina Ventricular tachycardia I47.2 Obstructive sleep apnea G47.33 COPD (chronic obstructive pulmonary disease) J44.1 COPD type: COPD with acute exacerbation
--- NOTE | 2021-10-31 20:30 | PC.NURSE ---
Ambulated with 3L/NC a total of 150 feet before getting short of breath. Pt denies passing gas at this time. States he does feel his belly rumbling.
[2021-11-01] VITALS (15 sets, daily range): BP systolic 124–154; BP diastolic 64–80; PULSE 62–98; RESP 17–18; TEMP 36.4–36.9; O2SAT 90–94
[2021-11-01 03:57] LABS: Basophils % 0.1 %; Hemoglobin 13.4 g/dL (11.7-16.6); Lymphocytes # 0.6 10^3/uL (0.8-4.8); Lymphocytes % 4.6 %; Mean Corpuscular HGB Conc 32.7 g/dL (30.0-36.0); Mean Corpuscular Hemoglobin 31.2 pg (28.0-34.0); Mean Corpuscular Volume 95.6 fl (80-94); Mean Platelet Volume 9.6 fL (7.4-10.4); Monocytes # 0.7 10^3/uL (0.2-0.9); Monocytes % 5.7 %; Neutrophils % 88.1 %; Nucleated Red Blood Cells % 0 %; Platelet Count 227 10^3/cmm (130-400); Red Blood Count 4.29 10^6/uL (4.1-5.3); Red Cell Distribution Width 13.2 % (12.1-15.1); White Blood Count 12.7 10^3/uL (4.0-10.0)
[2021-11-01] MEDS: HYDROcodone-acetaminophen 5-325 mg Tablet PO (04:10)
[2021-11-01] MEDS: piperacillin-tazobactam 3.375 GM in sodium chloride 0.9% (plus) 50 ML IV ×3 (04:10→22:11)
[2021-11-01 04:17] LABS: Estmated Average Glucose 123; Hemoglobin A1C 5.9 % (4.0-6.0)
[2021-11-01 04:19] LABS: Alanine Aminotransferase 17 U/L (0-41); Albumin Level 3.1 g/dL (3.5-5.2); Alkaline Phosphatase 50 IU/L (40-130); Anion Gap 12.8 (5-19); Aspartate Amino Transferase 24 U/L (0-40); Blood Urea Nitrogen 13 mg/dL (8-23); Calcium 8.9 mg/dL (8.5-10.5); Carbon Dioxide 26 mmol/L (22-29); Chloride 102 mmol/L (98-107); Chol HDL Ratio 2.19 mg/dL (1.0-5.00); Cholesterol 114 mg/dL (0-200); Globulin 3.1 g/dL (1.3-4.6); Glomerular Filtration Rate 136.5 mL/min (90-130); Glucose 156 mg/dL (65-115); HDL Cholesterol 52 mg/dL (60-100); LDL Cholesterol Calculated 48 mg/dL (50-129); Magnesium 2.2 mg/dL (1.7-2.3); Osmolality Calculated 287 mOsm/kg (285-295); Potassium 3.8 mmol/L (3.5-5.1); Sodium 137 mmol/L (136-145); Total Bilirubin 0.6 mg/dL (0.15-1.2); Total Protein 6.2 g/dL (6.6-8.7); Triglycerides 68 mg/dL (0-150); VLDL Cholestrol Calculation 14 mg/dL (0-30)
[2021-11-01 04:21] LABS: Creatinine Clr Calc Pharmacy 158.4209
[2021-11-01] MEDS: atorvastatin 40 mg Tablet PO (08:50)
[2021-11-01] MEDS: amiodarone 200 mg Tablet PO (08:50)
[2021-11-01] MEDS: metoprolol tartrate 25 mg Tablet PO ×2 (08:50→16:44)
[2021-11-01] MEDS: ipratropium-albuterol 3 mL Neb INHALATION ×3 (08:51→15:59)
[2021-11-01] MEDS: duloxetine 60 mg Capsule PO (08:51)
[2021-11-01] MEDS: aspirin 81 mg EC Tablet PO (08:51)
--- NOTE | 2021-11-01 09:09 | PM.PN ---
Subjective Subjective: The patient says he is feeling better today, but he is not sure if he is passing any flatus yet. He says he is quite hungry. Vitals/I&O/Wt Last Vital Signs Temp 97.6 F 11/01/21 08:01 Pulse 68 11/01/21 08:58 Resp 17 11/01/21 08:51 BP 129/69 11/01/21 08:01 Pulse Ox 90 11/01/21 08:51 10/31/21 11/01/21 11/01/21 22:59 06:59 14:59 Intake Total 50 / 1790 450 / 1790 Output Total 125 / 1005 880 / 1005 Balance -75 / 785 -430 / 785 Weight last 48 hrs Weight 265 lb Physical Exam Narrative: Bowel sounds are present but remain hypoactive. The surgical incisions look good. Data : 11/01/21 03:02 11/01/21 03:02 Micro: Microbiology 10/30/21 19:38 Blood Culture - Preliminary Blood NEGATIVE TO DATE 10/30/21 19:43 Blood Culture - Preliminary Blood NEGATIVE TO DATE A&P Assessment and plan (1) Acute appendicitis: Status post laparoscopic appendectomy on 10/30/2021. Continue ambulation. Carbohydrate consistent clear liquid diet. Status: Acute Attestations Medical Necessity Statement*: See admitting service's notation. Coding Level of Care Code Acute Conductor Pullman for [facility] Diagnoses Acute appendicitis K35.80
[2021-11-01] MEDS: heparin 5,000 unit/mL INJ 1 mL 5000 UNIT SUBCUT ×2 (12:35→22:12)
--- NOTE | 2021-11-01 14:13 | PM.PN ---
Subjective Subjective: No complaints overnight. Patient denies any nausea or vomiting. Start on clear liquid diet as per surgery today. Denies no vomiting after that. Passing flatus but has not passed BM. Walked in the hallway yesterday evening. States during walking had difficulty in breathing. Currently on at home 2 L oxygen supplementation saturating 94%. Has remained afebrile and hemodynamically stable otherwise. Vitals/I&O/Wt Last Vital Signs Temp 98.4 F 11/01/21 11:59 Pulse 77 11/01/21 11:59 Resp 17 11/01/21 11:59 BP 150/80 11/01/21 11:59 Pulse Ox 94 11/01/21 11:59 10/31/21 11/01/21 11/01/21 22:59 06:59 14:59 Intake Total 50 / 1340 450 / 1790 50 / 50 Output Total 125 / 125 880 / 1005 Balance -75 / 1215 -430 / 785 50 / 50 Weight last 48 hrs Weight 120.202 kg Physical Exam Const: COMMON NORMALS: no acute distress and patient oriented x3 HENMT: COMMON NORMALS: normocephalic HEAD & SCALP: normocephalic Eye: COMMON NORMALS: Equal, round and reactive pupils present and EOMs intact bilaterally PUPIL: Yes Equal, round and reactive pupils present Neck/C-Spine: COMMON NORMALS: no JVD Resp: COMMON NORMALS: normal respiratory effort, No retractions and No use of accessory muscles AUSCULTATION: wheezes Cardio: COMMON NORMALS: no JVD, regular rate, regular rhythm, S1 normal heart sound present and S2 normal heart sound present RATE: regular rate RHYTHM: regular rhythm HEART SOUNDS: S1 normal heart sound present and S2 normal heart sound present GI: COMMON NORMALS: Normal to inspection, nondistended, normoactive bowel sounds present, Soft to palpation, non-tender, no masses and no bruits INSPECTION: Yes abdominal distension AUSCULTATION: Yes Hypoactive bowel sounds present PALPATION: Yes Soft to palpation, Yes Tenderness to palpation present (GI), No Guarding due to palpation present (GI) and No Rigid due to palpation Extremity: COMMON NORMALS: capillary refill normal, no clubbing, cyanosis or edema, no calf tenderness and no pedal edema Neuro: COMMON NORMALS: patient oriented x3 Psych: COMMON NORMALS: mental status grossly normal Data : 11/01/21 03:02 11/01/21 03:02 Micro: Microbiology 10/30/21 19:38 Blood Culture - Preliminary Blood NEGATIVE TO DATE 10/30/21 19:43 Blood Culture - Preliminary Blood NEGATIVE TO DATE A&P Assessment and plan (1) Acute appendicitis: Status: Acute (2) Hyponatremia: Status: Acute (3) Morbid obesity with BMI of 40.0-44.9, adult: Status: Acute (4) Chronic respiratory failure with hypoxia: Status: Acute (5) Dyslipidemia: Status: Acute (6) Coronary artery disease: Status: Acute Qualifiers: Coronary Disease-Associated Artery/Lesion type: [place] artery [place] vs. transplanted heart: [place] heart Associated angina: with stable angina Qualified Code(s): I25.118 - Atherosclerotic heart disease of [place] coronary artery with other forms of angina pectoris (7) Ventricular tachycardia: Status: Acute (8) Obstructive sleep apnea: Status: Acute (9) COPD (chronic obstructive pulmonary disease): Status: Acute Qualifiers: COPD type: COPD with acute exacerbation Qualified Code(s): J44.1 - Chronic obstructive pulmonary disease with (acute) exacerbation Plan Acute appendicitis: Post appendectomy day 2. Awaiting bowel movements Appreciate surgical recommendations. Incentive spirometry. Physical therapy. Anticoagulation as per surgical team. Continue Zosyn for 48 hours postoperatively. Stop IV fluids. Diet as per surgery recs History of COPD: No current exacerbation. Continue with DuoNeb every 6 hour. Oxygen supplementation keeping saturation over 88%. Cell cardiograms of system shows any of 60%, no R WMA, mild pulmonary hypertension with PASP of 40-90. IV Lasix 40 mg once. Patient takes 20 mg of oral Lasix at home. History of CAD: No active chest pain. Continue with aspirin, statin. History of VT: Continue home dose of amiodarone. Telemetry. Full code. Clear liquid diet Heparin for DVT prophylaxis. Protonix for PUD prophylaxis. Attestations Medical Necessity Statement*: Requires further hospitalization for postoperative care for acute appendicitis while diet is advanced and bowel functions are monitored Time Spent in Patient Care: 16 - 35 minutes Coding Level of Care Code Acute Tripe Finisher for [facility] Diagnoses Acute appendicitis K35.80 Hyponatremia E87.1 Morbid obesity with BMI of 40.0-44.9, adult E66.01; Z68.41 Chronic respiratory failure with hypoxia J96.11 Dyslipidemia E78.5 Coronary artery disease I25.118 Coronary Disease-Associated Artery/Lesion type: [place] artery [place] vs. transplanted heart: [place] heart Associated angina: with stable angina Ventricular tachycardia I47.2 Obstructive sleep apnea G47.33 COPD (chronic obstructive pulmonary disease) J44.1 COPD type: COPD with acute exacerbation
[2021-11-01] MEDS: FUROsemide 10 mg/mL SDV 4mL 40 MG IVP (16:44)
[2021-11-01] MEDS: HYDROcodone-acetaminophen 5-325 mg Tablet 1 TAB PO (20:28)
[2021-11-01] MEDS: pantoprazole 40 mg SDV IVP (20:49)
[2021-11-02] VITALS (16 sets, daily range): BP systolic 112–129; BP diastolic 60–81; PULSE 70–97; RESP 16–18; TEMP 36.5–36.8; O2SAT 90–97
[2021-11-02 03:50] LABS: Basophils % 0.2 %; Eosinophils % 0.1 %; Hematocrit 40.5 % (42.0-52.0); Hemoglobin 13.3 g/dL (11.7-16.6); Lymphocytes # 0.9 10^3/uL (0.8-4.8); Lymphocytes % 8.1 %; Mean Corpuscular HGB Conc 32.8 g/dL (30.0-36.0); Mean Corpuscular Hemoglobin 31.6 pg (28.0-34.0); Mean Corpuscular Volume 96.2 fl (80-94); Mean Platelet Volume 9.6 fL (7.4-10.4); Monocytes # 1.1 10^3/uL (0.2-0.9); Monocytes % 9.7 %; Neutrophils # 9.04 10^3/uL (1.8-7.7); Neutrophils % 80.5 %; Nucleated Red Blood Cells % 0 %; Platelet Count 258 10^3/cmm (130-400); Red Blood Count 4.21 10^6/uL (4.1-5.3); Red Cell Distribution Width 13.1 % (12.1-15.1); White Blood Count 11.2 10^3/uL (4.0-10.0)
[2021-11-02 04:10] LABS: Alanine Aminotransferase 21 U/L (0-41); Albumin Level 2.8 g/dL (3.5-5.2); Alkaline Phosphatase 47 IU/L (40-130); Anion Gap 12.5 (5-19); Aspartate Amino Transferase 26 U/L (0-40); Blood Urea Nitrogen 16 mg/dL (8-23); Calcium 8.7 mg/dL (8.5-10.5); Carbon Dioxide 26 mmol/L (22-29); Chloride 103 mmol/L (98-107); Globulin 3.5 g/dL (1.3-4.6); Glomerular Filtration Rate 136.5 mL/min (90-130); Glucose 92 mg/dL (65-115); Magnesium 1.9 mg/dL (1.7-2.3); Osmolality Calculated 287 mOsm/kg (285-295); Phosphorus 1.6 mg/dL (2.5-4.5); Potassium 3.5 mmol/L (3.5-5.1); Sodium 138 mmol/L (136-145); Total Bilirubin 0.4 mg/dL (0.15-1.2); Total Protein 6.3 g/dL (6.6-8.7)
[2021-11-02 04:18] LABS: Creatinine Clr Calc Pharmacy 158.4209
[2021-11-02] MEDS: ipratropium-albuterol 3 mL Neb INHALATION ×3 (08:04→20:32)
--- NOTE | 2021-11-02 08:56 | P.PN_ITS ---
Subjective Subjective: The patient says he is feeling better. He is now passing flatus. He would like some solid food. He says his breathing is still a little bit of an issue and is not quite back to what his normal is, but that is improving, as well. Vitals/I&O/Wt Last Vital Signs Temp 98.3 F 11/02/21 07:36 Pulse 77 11/02/21 08:13 Resp 16 11/02/21 08:13 BP 115/73 11/02/21 07:36 Pulse Ox 94 11/02/21 08:13 11/01/21 11/02/21 11/02/21 22:59 06:59 14:59 Intake Total 1370 / 1470 50 / 1470 Output Total 175 / 175 Balance 1370 / 1295 -125 / 1295 Physical Exam Narrative: The patient is afebrile. Bowel sounds are present. The laparoscopic incisions look good. He remains on a nasal cannula. Data : 11/02/21 03:05 11/02/21 03:05 A&P Assessment and plan (1) Acute appendicitis: Status post laparoscopic appendectomy on 10/30/2021. Continue ambulation. GI soft diet. I am going a start the patient on Augmentin. I see his Zosyn somehow got discontinued, and I would like to see him on some antibiotic treatment for about a week as an outpatient given the inflammatory change at the time of surgery as well as his persistent mild leukocytosis. Status: Acute Attestations Medical Necessity Statement*: See admitting service's notation. Coding Level of Care Code Acute Stockroom Associate for [facility] Diagnoses Acute appendicitis K35.80
[2021-11-02] MEDS: duloxetine 60 mg Capsule PO (09:15)
[2021-11-02] MEDS: amiodarone 200 mg Tablet PO (09:15)
[2021-11-02] MEDS: aspirin 81 mg EC Tablet PO (09:15)
[2021-11-02] MEDS: atorvastatin 40 mg Tablet PO (09:16)
[2021-11-02] MEDS: amoxicillin-clav 875-125 mg Tablet 1 TAB PO ×2 (09:23→18:13)
[2021-11-02] MEDS: metoprolol tartrate 25 mg Tablet PO ×2 (09:23→18:13)
[2021-11-02] MEDS: heparin 5,000 unit/mL INJ 1 mL 5000 UNIT SUBCUT ×2 (11:44→22:40)
[2021-11-02] MEDS: FUROsemide 10 mg/mL SDV 4mL 40 MG IVP (11:44)
--- NOTE | 2021-11-02 14:43 | PM.PN ---
Subjective Subjective: No acute vents overnight. Patient states he is passing flatus. Starting more mechanical soft diet as per surgical team. States breathing is better but still little out of breath. On examination laying flat in bed, sleeping. On 1 L saturating 96%. Has remained hemodynamically stable and afebrile otherwise. Vitals/I&O/Wt Last Vital Signs Temp 98.3 F 11/02/21 11:57 Pulse 91 11/02/21 11:57 Resp 18 11/02/21 11:57 BP 112/71 11/02/21 11:57 Pulse Ox 97 11/02/21 11:57 11/01/21 11/02/21 11/02/21 22:59 06:59 14:59 Intake Total 1370 / 1420 50 / 1470 360 / 360 Output Total 175 / 175 Balance 1370 / 1420 -125 / 1295 360 / 360 Physical Exam Const: COMMON NORMALS: no acute distress and patient oriented x3 HENMT: COMMON NORMALS: normocephalic HEAD & SCALP: normocephalic Eye: COMMON NORMALS: Equal, round and reactive pupils present and EOMs intact bilaterally PUPIL: Yes Equal, round and reactive pupils present Neck/C-Spine: COMMON NORMALS: no JVD Resp: COMMON NORMALS: normal respiratory effort, No retractions and No use of accessory muscles AUSCULTATION: wheezes Cardio: COMMON NORMALS: no JVD, regular rate, regular rhythm, S1 normal heart sound present and S2 normal heart sound present RATE: regular rate RHYTHM: regular rhythm HEART SOUNDS: S1 normal heart sound present and S2 normal heart sound present GI: COMMON NORMALS: Normal to inspection, nondistended, normoactive bowel sounds present, Soft to palpation, non-tender, no masses and no bruits INSPECTION: Yes abdominal distension AUSCULTATION: Yes Hypoactive bowel sounds present PALPATION: Yes Soft to palpation, Yes Tenderness to palpation present (GI), No Guarding due to palpation present (GI) and No Rigid due to palpation Extremity: COMMON NORMALS: capillary refill normal, no clubbing, cyanosis or edema, no calf tenderness and no pedal edema Neuro: COMMON NORMALS: patient oriented x3 Psych: COMMON NORMALS: mental status grossly normal Data : 11/02/21 03:05 11/02/21 03:05 A&P Assessment and plan (1) Acute appendicitis: Status: Acute (2) Hyponatremia: Status: Acute (3) Morbid obesity with BMI of 40.0-44.9, adult: Status: Acute (4) Chronic respiratory failure with hypoxia: Status: Acute (5) Dyslipidemia: Status: Acute (6) Coronary artery disease: Status: Acute Qualifiers: Coronary Disease-Associated Artery/Lesion type: [place] artery [place] vs. transplanted heart: [place] heart Associated angina: with stable angina Qualified Code(s): I25.118 - Atherosclerotic heart disease of [place] coronary artery with other forms of angina pectoris (7) Ventricular tachycardia: Status: Acute (8) Obstructive sleep apnea: Status: Acute (9) COPD (chronic obstructive pulmonary disease): Status: Acute Qualifiers: COPD type: COPD with acute exacerbation Qualified Code(s): J44.1 - Chronic obstructive pulmonary disease with (acute) exacerbation Plan Acute appendicitis: Post appendectomy day 3. Passing flatus. Ambulation. Out of bed to chair. Appreciate surgical recommendations. Incentive spirometry. Physical therapy. Anticoagulation as per surgical team. Diet advancement as per surgical team. Continue with Augmentin as per surgical recommendation. History of COPD: No current exacerbation. Continue with DuoNeb every 6 hour. Oxygen supplementation keeping saturation over 88%. Last echocardiogram in system shows any of 60%, no R WMA, mild pulmonary hypertension with PASP of 40-90 mmHg IV Lasix 40 mg once. Patient takes 20 mg of oral Lasix at home. History of CAD: No active chest pain. Continue with aspirin, statin. History of VT: Continue home dose of amiodarone. Telemetry. Full code. GI soft diet. Heparin for DVT prophylaxis. Protonix for PUD prophylaxis. Discharge planning: Plan to discharge home in next 24 hours if patient continues to tolerate soft diet well. Plan for day: Trial of GI soft diet, ambulation, IV Lasix 40 mg once., Inhalation treatment. Oxygen supplementation weaning keeping saturation over 88%. I-S. Encouragement to patient regarding more ambulation. Attestations Medical Necessity Statement*: Requires further hospitalization while diet is advanced and bowel movements are awaited, diastolic heart failure with moderate pulmonary hypertension Time Spent in Patient Care: Greater than 35 minutes Coding Level of Care Code Acute Edge Brusher for [facility] Fwd Diagnoses Acute appendicitis K35.80 Hyponatremia E87.1 Morbid obesity with BMI of 40.0-44.9, adult E66.01; Z68.41 Chronic respiratory failure with hypoxia J96.11 Dyslipidemia E78.5 Coronary artery disease I25.118 Coronary Disease-Associated Artery/Lesion type: [place] artery [place] vs. transplanted heart: [place] heart Associated angina: with stable angina Ventricular tachycardia I47.2 Obstructive sleep apnea G47.33 COPD (chronic obstructive pulmonary disease) J44.1 COPD type: COPD with acute exacerbation
[2021-11-02] MEDS: HYDROcodone-acetaminophen 5-325 mg Tablet 1 TAB PO (20:25)
[2021-11-02] MEDS: pantoprazole 40 mg SDV IVP (20:25)
[2021-11-03] VITALS (7 sets, daily range): BP systolic 123–126; BP diastolic 69–75; PULSE 57–86; RESP 16–18; TEMP 36.7–37.2; O2SAT 86–96
--- NOTE | 2021-11-03 08:56 | PM.PN ---
Subjective Subjective: The patient continues to pass flatus. He is tolerating a soft GI diet. He says he still does not feel like his breathing is back to normal. Vitals/I&O/Wt Last Vital Signs Temp 99.0 F 11/03/21 04:00 Pulse 57 L 11/03/21 07:35 Resp 16 11/03/21 07:35 BP 124/75 11/03/21 07:35 Pulse Ox 92 11/03/21 07:35 11/02/21 11/03/21 11/03/21 22:59 06:59 14:59 Output Total 1360 / 1520 160 / 1520 Balance -1360 / -1160 -160 / -1160 Physical Exam Narrative: The patient has a CPAP/BiPAP mask on this morning (he wears one of these at night at home). Bowel sounds are present. The abdomen shows the expected amount of tenderness. Data : 11/02/21 03:05 11/02/21 03:05 A&P Assessment and plan (1) Acute appendicitis: Status post laparoscopic appendectomy on 10/30/2021. Continue ambulation. Continue Augmentin for 5?7 days. Patient okay for discharge from a surgical standpoint whenever his respiratory status appears stable per the hospitalist team. I have made some arrangements for follow-up. Status: Acute Attestations Medical Necessity Statement*: See admitting service's notation. Coding Level of Care Code Acute Trolley Car Mechanic for [facility] Diagnoses Acute appendicitis K35.80
[2021-11-03] MEDS: aspirin 81 mg EC Tablet PO (09:02)
[2021-11-03] MEDS: amiodarone 200 mg Tablet PO (09:02)
[2021-11-03] MEDS: atorvastatin 40 mg Tablet PO (09:02)
[2021-11-03] MEDS: metoprolol tartrate 25 mg Tablet PO (09:02)
[2021-11-03] MEDS: amoxicillin-clav 875-125 mg Tablet 1 TAB PO (09:02)
[2021-11-03] MEDS: duloxetine 60 mg Capsule PO (09:02)
[2021-11-03] MEDS: HYDROcodone-acetaminophen 5-325 mg Tablet 1 TAB PO (09:02)
[2021-11-03] MEDS: heparin 5,000 unit/mL INJ 1 mL 5000 UNIT SUBCUT (11:52)
[2021-11-03] MEDS: ipratropium-albuterol 3 mL Neb INHALATION (12:19)
--- NOTE | 2021-11-03 12:32 | P.DS_ITS ---
Discharge Providers Date of Admission: 10/30/21 20:47 Date of Discharge: November 03, 2021 Attending Provider at Admission: Jamarcus Vargas MD Attending Provider at Discharge: Sridhar Tadeo MD Consults: Dr. VARGAS Primary Care Provider: SIRENA Erickson Diagnoses at Discharge Discharge Diagnosis (1) Acute appendicitis: Status: Acute Reason for Visit Reason for Visit: ABD pain Brief History: History as per HPI: Sam Henson is a 61 year old male with a past medical history of CAD, chronic respiratory failure with hypoxia, COPD Gold stage D, history of smoking, dyslipidemia, history of sustained V. tach, ROWDY, hypertension, who presents to [facility] for abdominal pain, constipation, nausea since Thursday.? Patient tells me that since Thursday he developed significant abdominal pain, diffuse, primarily in the right lower quadrant associate with nausea, fevers, decreased stooling since Thursday.? He tells me that he has not been able to keep anything down, his last meal was this morning when he had some corn flakes but was barely able to keep it down.? Low-grade fevers and chills.? Reports nausea and vomiting.? Continues to smoke.? No history of COPD exacerbation.? No chest pain.? Here at [facility] he was found to have acute appendicitis.? Was given antibiotics.? There is plans on surgical intervention. Hospital Course Hospital Course Patient admitted to hospital for evaluation and management of sepsis secondary to acute appendicitis. Surgery was consulted and he underwent laparoscopic appendectomy on 10/30. He tolerated procedure well. Post procedure his diet was slowly advanced and he has been tolerating mechanical soft diet for last 24 to 36 hours. He had mild hypoxia postoperatively which was most likely se condary to congestive heart failure and COPD exacerbation which was treated with nebulization treatment and IV diuresis. Patient has been back to his baseline oxygen supplementation both at rest and on exertion. He is advised in detail to work regularly with incentive spirometry. He is been discharged in hemodynamically stable condition advised to follow-up with his primary care provider within next 1 week, surgery as per surgical recommendations. He is to take oral Augmentin for next 5 days twice daily. Physical Exam Const: COMMON NORMALS: no acute distress and patient oriented x3 HENMT: COMMON NORMALS: normocephalic HEAD & SCALP: normocephalic Eye: COMMON NORMALS: Equal, round and reactive pupils present and EOMs intact bilaterally PUPIL: Yes Equal, round and reactive pupils present Neck/C-Spine: COMMON NORMALS: no JVD Resp: COMMON NORMALS: normal respiratory effort, No retractions and No use of accessory muscles AUSCULTATION: wheezes Cardio: COMMON NORMALS: no JVD, regular rate, regular rhythm, S1 normal heart sound present and S2 normal heart sound present RATE: regular rate RHYTHM: regular rhythm HEART SOUNDS: S1 normal heart sound present and S2 normal heart sound present GI: COMMON NORMALS: Normal to inspection, nondistended, normoactive bowel sounds present, Soft to palpation, non-tender, no masses and no bruits INSPECTION: Yes abdominal distension AUSCULTATION: Yes Hypoactive bowel sounds present PALPATION: Yes Soft to palpation, Yes Tenderness to palpation present (GI), No Guarding due to palpation present (GI) and No Rigid due to palpation Extremity: COMMON NORMALS: capillary refill normal, no clubbing, cyanosis or edema, no calf tenderness and no pedal edema Neuro: COMMON NORMALS: patient oriented x3 Psych: COMMON NORMALS: mental status grossly normal Discharge Data Studies Completed and Pending Completed Studies During Hospitalization Category Date Time Status CT abdomen pelvis w con* [id number] Urgent Cat Scan 10/30/21 17:40 Completed Pending at discharge Category Date Time Status Blood Culture Stat Lab 10/30/21 19:38 Results Pathology: Surgical [PTH] Routine Pth 10/30/21 22:26 Received Radiology Impressions Abdomen/Pelvis CT 10/30/21 17:40 IMPRESSION: 1. Acute appendicitis. 2. Low-density 3.4 cm left adrenal nodule is consistent with a benign adenoma. No imaging follow-up is recommended. ADDENDUM: 10/30/21 642 THIS REPORT CONTAINS FINDINGS THAT MAY BE CRITICAL TO PATIENT CARE. The findings were verbally communicated via telephone conference with Kenny Monae at 7:04 PM CDT on 10/30/2021. The findings were acknowledged and understood. ADDENDUM: 10/30/212133 Possible nodular wall thickening in the gallbladder fundus. A neoplastic process cannot be excluded. Follow-up ultrasound is recommended. Laboratory Results WBC 11.2 10^3/uL (4.0-10.0) H 11/02/21 03:05 RBC 4.21 10^6/uL (4.1-5.3) 11/02/21 03:05 Hgb 13.3 g/dL (11.7-16.6) 11/02/21 03:05 Hct 40.5 % (42.0-52.0) L 11/02/21 03:05 MCV 96.2 fl (80-94) H 11/02/21 03:05 MCH 31.6 pg (28.0-34.0) 11/02/21 03:05 MCHC 32.8 g/dL (30.0-36.0) 11/02/21 03:05 RDW 13.1 % (12.1-15.1) 11/02/21 03:05 Plt Count 258 10^3/cmm (130-400) 11/02/21 03:05 MPV 9.6 fL (7.4-10.4) 11/02/21 03:05 Neut % (Auto) 80.5 % 11/02/21 03:05 Lymph % (Auto) 8.1 % 11/02/21 03:05 Blount % (Auto) 9.7 % 11/02/21 03:05 Eos % (Auto) 0.1 % 11/02/21 03:05 Baso % (Auto) 0.2 % 11/02/21 03:05 Neut # (Auto) 9.04 10^3/uL (1.8-7.7) H 11/02/21 03:05 Lymph # (Auto) 0.9 10^3/uL (0.8-4.8) 11/02/21 03:05 Blount # (Auto) 1.1 10^3/uL (0.2-0.9) H 11/02/21 03:05 Eos # (Auto) 0.0 10^3/uL (0.0-0.8) 11/02/21 03:05 Baso # (Auto) 0.0 10^3/uL (0.0-0.1) 11/02/21 03:05 Nucleated RBC % (auto) 0 % 11/02/21 03:05 Nucleated RBCs # 0.0 /100WBC 11/02/21 03:05 Sodium 138 mmol/L (136-145) 11/02/21 03:05 Potassium 3.5 mmol/L (3.5-5.1) 11/02/21 03:05 Chloride 103 mmol/L (98-107) 11/02/21 03:05 Carbon Dioxide 26 mmol/L (22-29) 11/02/21 03:05 Anion Gap 12.5 (5-19) 11/02/21 03:05 BUN 16 mg/dL (8-23) 11/02/21 03:05 Creatinine 0.6 mg/dL (0.7-1.2) L 11/02/21 03:05 GFR Calculation 136.5 mL/min (90-130) H 11/02/21 03:05 Glucose 92 mg/dL (65-115) 11/02/21 03:05 Estimat Average Glucose 123 11/01/21 03:02 Hemoglobin A1c 5.9 % (4.0-6.0) 11/01/21 03:02 Calculated Osmolality 287 mOsm/kg (285-295) 11/02/21 03:05 Lactate 1.3 mmol/L (0.5-2.2) 10/30/21 18:20 Calcium 8.7 mg/dL (8.5-10.5) 11/02/21 03:05 Phosphorus 1.6 mg/dL (2.5-4.5) L 11/02/21 03:05 Magnesium 1.9 mg/dL (1.7-2.3) 11/02/21 03:05 Iron 24 ug/dL (59-158) L 10/31/21 02:30 TIBC 220 mcg/dl 10/31/21 02:30 % Saturation 10.9 % (20-50) L 10/31/21 02:30 Unsat Iron Binding 196 ug/dL (112-347) 10/31/21 02:30 Total Bilirubin 0.4 mg/dL (0.15-1.2) 11/02/21 03:05 AST 26 U/L (0-40) 11/02/21 03:05 ALT 21 U/L (0-41) 11/02/21 03:05 Alkaline Phosphatase 47 IU/L (40-130) 11/02/21 03:05 NT-Pro-B Natriuret Pep 193 pg/mL (0-125) H 10/31/21 02:30 Total Protein 6.3 g/dL (6.6-8.7) L 11/02/21 03:05 Albumin 2.8 g/dL (3.5-5.2) L 11/02/21 03:05 Globulin 3.5 g/dL (1.3-4.6) 11/02/21 03:05 Triglycerides 68 mg/dL (0-150) 11/01/21 03:02 Cholesterol 114 mg/dL (0-200) 11/01/21 03:02 LDL Cholesterol, Calc 48 mg/dL (50-129) L 11/01/21 03:02 Total VLDL Cholesterol 14 mg/dL (0-30) 11/01/21 03:02 HDL Cholesterol 52 mg/dL (60-100) L 11/01/21 03:02 Cholesterol/HDL Ratio 2.19 mg/dL (1.0-5.00) 11/01/21 03:02 Lipase 13 U/L (13-60) 10/30/21 18:20 TSH 2.74 uIU/mL (0.27-4.20) 10/30/21 18:20 Urine Color Yellow (Yellow) 10/31/21 01:00 Urine Appearance Clear (CLEAR) 10/31/21 01:00 Urine pH 5 (5-7) 10/31/21 01:00 Ur Specific [place] 1.020 (1.005-1.030) 10/31/21 01:00 Urine Protein Neg (Negative) 10/31/21 01:00 Urine Glucose (UA) Norm (Normal) 10/31/21 01:00 Urine Ketones 1+ (Negative) H 10/31/21 01:00 Urine Blood Neg (Negative) 10/31/21 01:00 Urine Nitrate Negative (Negative) 10/31/21 01:00 Urine Bilirubin Neg (Negative) 10/31/21 01:00 Urine Urobilinogen Norm mg/dL (Negative) 10/31/21 01:00 Ur Leukocyte Esterase Negative (Negative) 10/31/21 01:00 Vitals Last Vital Signs Temp 99.0 F 11/03/21 04:00 Pulse 68 11/03/21 12:21 Resp 18 11/03/21 12:21 BP 124/75 11/03/21 07:35 Pulse Ox 96 11/03/21 12:21 Discharge Plan Discharge Patient Disposition: Home Condition: Stable Prescriptions: New amoxicillin-pot clavulanate 875-125 mg Tablet 1 tab PO BID 4 Days Qty: 8 0RF Continued omeprazole 20 mg capsule,delayed release(DR/EC) 40 mg PO DAILY 0RF furosemide [Lasix] 20 mg tablet 20 mg PO DAILY Qty: 30 3RF albuterol sulfate 2.5 mg /3 mL (0.083 %) solution for nebulization 2.5 mg INHALATION Q4H PRN (Reason: shortness of breath or wheezing) Qty: 540 3RF aspirin [Adult Aspirin Regimen] 81 mg tablet,delayed release (DR/EC) 81 mg PO DAILY Qty: 90 3RF Spiriva with HandiHaler 18 mcg capsule, w/inhalation device See Rx Instructions .ROUTE .COMPLEX Qty: 30 3RF Dose Instruction: INHALE CONTENTS OF ONE CAPSULE PER HANDIHALER ONCE DAILY Rx Instructions: INHALE CONTENTS OF ONE CAPSULE PER HANDIHALER ONCE DAILY albuterol sulfate 90 mcg/actuation HFA aerosol inhaler 2 inh inhalation Q4H PRN (Reason: shortness of breath or wheezing) Qty: 18 4RF metoprolol tartrate 25 mg tablet 25 mg PO BID Qty: 180 3RF budesonide-formoterol 160-4.5 mcg/actuation HFA aerosol inhaler 2 inh inhalation DAILY Qty: 10.2 3RF atorvastatin 40 mg tablet 40 mg PO DAILY Qty: 90 3RF amiodarone 200 mg tablet 200 mg PO DAILY Qty: 100 3RF nitroglycerin 0.4 mg tablet, sublingual See Rx Instructions .ROUTE .COMPLEX Qty: 50 5RF Dose Instruction: DISSOLVE ONE (1) TABLET UNDER THE TONGUE EVERY FIVE (5) MINUTES NEEDED CHEST PAIN DO NOT EXCEED THREE (3) DOSES PER EPISODE Rx Instructions: DISSOLVE ONE (1) TABLET UNDER THE TONGUE EVERY FIVE (5) MINUTES NEEDED CHEST PAIN DO NOT EXCEED THREE (3) DOSES PER EPISODE duloxetine 30 mg capsule,delayed release(DR/EC) 60 mg PO DAILY 0RF Held lisinopril 5 mg tablet 5 mg PO DAILY Qty: 90 3RF Hold Instructions: Resume on 11/10/21. Discharge Orders: Discharge Order (Routine); Ordered 11/03/21 Ordered By: Sridhar Tadeo Referrals: Jamarcus Vargas MD [Physician] - 7-10 days (Nursing: Please have the patient / family call Dr. Vargas's office on Thursday ([phone]) and make an appointment for the patient to be seen in 7-10 days.) Elijah Louis, SENIOR PORTFOLIO MANAGER [Primary Care Provider] - 1 week (Please call GREYSON Higgins on Thursday schedule an appontment to be seen within the next 10 days if possible.) Discharge Diet: Usual diet Discharge Activity: Limit activity as instructed Patient Instructions: Appendicitis (GEN), Opioid Safety Activity Restrictions/Additional Instructions: No lifting over 20 pounds, no repetitive bending or twisting, no strenuous pushing / pulling or other heavy activity. Ambulate regularly. May go up and down steps if needed. F/u with PCP in 1 week Incentive spirometry 4-5 times daily Hold lisinopril for now. Check BP daily and mantain BP diary to f/u with PCP for further management of BP meds Discharge Attestations Time Spent in Discharge Care*: greater than 30 min Specific Discharge Activities: educating patient, educating and/or supporting family/caregiver, discussing with pcp/other providers, discussing with manager rn case/social workers/dc planners, documenting/other paperwork and evaluating patient/reviewing data Status at Discharge: Cognitive status at discharge: cognitively intact , Behavioral status at discharge: cooperative , Functional status at discharge: independent ambulation , Overall status at discharge: patient is back to baseline Quality Metrics Clinical Quality Measures [ No reported AMI, CVA or VTE this stay] Coding Level of Care Code Acute Chg FW DC note Diagnoses Acute appendicitis K35.80
--- NOTE | 2021-11-03 16:28 | PC.NURSE ---
PATIENT READY TO DISCHARGE, THIS NURSE ASKED WHO I CAN CALL TO PICK HIM UP. PATIENT SAID THAT HE WILL BE DRIVING HIMSELF. THIS NURSE EDUCATED PATIENT THAT DRIVING AFTER SURGERY AND THE USE OF NARCOTIC PAIN MEDICATION IS NOT RECOMMENDED. PT STATES HIS HAS DEMENTIA AND HIS MOTHER DOESN'T DRIVE ANYMORE SO HE HAS NO ONE ELSE TO GET HIM. THIS NURSE SPOKE WITH CASE MANAGEMENT ABOUT SETTING UP AN UBER RIDE, PATIENT DID NOT WANT TO PAY $80 SO HE REFUSED AND STATED HE WOULD DRIVE HIMSELF. EDUCATION ON RISKS WERE PROVIDED AGAIN AND PT VERBALIZED UNDERSTANDING. DR.. CRUM NOTIFIED. PT WAS DISCHARGED AND WHEELED OUT TO HIS VEHICLE.
== END 2021-11-03 16:38 | disposition home or self-care (01) | DRG 341 ==
LOC: ER 20:15 → OR 20:20 → MEDSURG 10-31 06:47
PROVIDERS: Family Medicine; Admitting Provider Surgery; Emergency Provider Emergency Medicine; PCP Nurse Practitioner; Visit Provider Student in an Organized Health Care Education/Training Program
PROC: 0DTJ4ZZ Resection of Appendix, Percutaneous Endoscopic Approach (ICD-10-PCS; CPT 44970; principal; 2021-10-30 20:05)
DX: K35.80 Unspecified acute appendicitis (principal); I50.33 Acute on chronic diastolic (congestive) heart failure; J44.1 Chronic obstructive pulmonary disease with (acute) exacerbation; J96.11 Chronic respiratory failure with hypoxia; Z68.41 Body mass index [BMI] 40.0-44.9, adult; E87.1 Hypo-osmolality and hyponatremia; I47.2 Ventricular tachycardia; I11.0 Hypertensive heart disease with heart failure; E78.5 Hyperlipidemia, unspecified; I25.10 Atherosclerotic heart disease of native coronary artery without angina pectoris; E66.01 Morbid (severe) obesity due to excess calories; F17.210 Nicotine dependence, cigarettes, uncomplicated; G47.33 Obstructive sleep apnea (adult) (pediatric); K59.00 Constipation, unspecified; E86.0 Dehydration; Z99.81 Dependence on supplemental oxygen; I27.20 Pulmonary hypertension, unspecified; Z79.51 Long term (current) use of inhaled steroids; Z79.82 Long term (current) use of aspirin
CPT/HCPCS: 36415; 74177; 80053; 80061; 81003; 83036; 83540; 83550; 83605; 83690; 83735; 83880; 84100; 84443; 85025; 87040; 88304; 94640; 94660; 96365; 96372; 96375; 99285; C9113; J1100; J1644; J1940; J2270; J2405; J2543; J2704; J2930; J3010; J3490; J3535; J7030; Q9967

== ENCOUNTER 2021-11-11 12:43 | Emergency (ER) | payer OTHER, SELFPAY ==
[2021-11-11 12:53] VITALS: BP 139/80; PULSE 80; RESP 18; TEMP 37.1; O2SAT 94; BMI 41.5
--- NOTE | 2021-11-11 13:27 | CT_ITS ---
WS: [id number] CT ABDOMEN PELVIS TECHNIQUE: Contrast-enhanced CT of the abdomen and pelvis with coronal and sagittal reformatted image s. CLINICAL INFORMATION: eval for surigical site infection COMPARISON: CT October 30, 2021 DLP: 1910.[address] scans at [facility] use at least one of these dose optimization techniques: automated e xposure control; mA and/or kV adjustment per patient size (includes targeted exams where dose is matc hed to clinical indication); or iterative reconstruction. FINDINGS: Interval postoperative changes appendectomy in the RIGHT lower quadrant. Tiny amount of flu id in the RIGHT lower quadrant. No evidence of drainable abscess or fluid collection. Appendectomy cl ips. Small low-attenuation fluid collection along the midline anterior subcutaneous abdominal soft ti ssues along the incision site likely postoperative seroma Normal liver. Sludge and calculi in the gallbladder. No gallbladder wall thickening or pericholecyst ic fluid. Normal portal vein and splenic vein. Fatty atrophy of the pancreas. Normal spleen. Normal G E junction. Lung bases are well aerated. Coronary calcification. RIGHT adrenal gland is normal. LEFT adrenal lesion measuring 3.1 cm is unchanged. Normal caliber abdominal aorta. Sigmoid diverticulosis. No evidence of acute diverticulitis. Colon is decompressed. Prior ventral ab dominal wall hernia repair with hernia mesh. Small amount of fluid along the hernia mesh is unchanged compared to October 30, 2021. Slightly distended loops of small bowel in the midabdomen with air-fluid levels suspicious for develo ping small bowel obstruction versus postoperative adynamic ileus. Distal ileum is decompressed. Colon is decompressed. CT/CT abdomen pelvis w con* [id number] IMPRESSION: 1. Interval postoperative changes appendectomy. Small amount of fluid in the R IGHT lower quadrant. No evidence of drainable abscess or fluid collection. 2. Low-attenuation fluid collection measuring 4.0 x 3.0 cm along the surgical incision site likely postoperative seroma 3. Slightly distended loops of small bowel in the mid anterior abdomen with ai r-fluid levels .No high-grade obstruction. 4. No other significant changes compared to previous. 5. Postoperative changes ventral abdominal wall hernia repair with a small flu id collection unchanged since October 30, 2021. 6. Cholelithiasis and gallbladder sludge unchanged. 7. Stable 3.1 cm LEFT adrenal lesion likely adenoma.
--- NOTE | 2021-11-11 13:27 | W.ED.GENADLT ---
HPI - General Adult General: Chief complaint: Abdominal Pain Stated complaint: INFECTION FROM SURGICAL SITE Time Seen by Provider: 11/11/21 13:26 History of Present Illness: Patient is a 61-year-old male with a history of recent appendectomy on 10/30/[address] Vargas and discharged home on 11/03/2021 presenting to the emergency room for surgical site drainage, pain and fever. Patient has been on Augmentin daily and is compliant with medicine. Sinc3 11/06/2021, patient has noted serosanguineous and pus drainage from one of the laparoscopic site. She also reports subjective fever. Denies any nausea/vomiting, diarrhea melena hematochezia. Patient has had continued p.o. intake since then. Patient has not seen by Dr. Vargas and has an appointment with Dr. Vargas in 2 days Onset: 11/06/2021 Duration: 6 days Location:home Severity:moderate Associated symptoms: Deny chest pain, dyspnea, nausea, rash, palpitations or vomiting Review of Systems Const: Denies: fever(s) or chills Eyes: Denies: change in vision ENMT: Denies: mouth pain Card: Denies: chest pain or palpitations Resp: Denies: dyspnea or non-productive cough GI: Reports: abdominal pain and other (+surgical site drainage/redness/pus); Denies: nausea, vomiting or diarrhea : Denies: dysuria Musc: Denies: extremity pain Skin/Breast: Denies: rash or new lesions Neuro: Denies: weakness in extremities Psych: Reports: other (Normal mood) Dimitry/Lymph: Denies: easy bruising PFSH ED PFSH: Medical History Atherosclerosis of coronary artery of [place] heart without angina pectoris Atypical angina Bilateral primary osteoarthritis of knee Carotid bruit Chronic respiratory failure with hypoxia COPD (chronic obstructive pulmonary disease) Coronary artery disease Diverticulosis Dyslipidemia Dyspnea on exertion High risk medication use HTN (hypertension) Morbid obesity with BMI of 40.0-44.9, adult Nicotine addiction Nocturnal hypoxia Obstructive sleep apnea Palpitations PND (post-nasal drip) Sustained ventricular tachycardia Ventricular tachycardia Surgical History H/O hernia repair Periumbilical with mesh H/O knee surgery Bilateral arthroscopy History of colonoscopy (~04/2020) dr. macedo- [facility] [place] History of surgical removal of ganglion cyst Family History Father Cancer Anesthesia complication Diabetes Mother Cancer Dementia Family/Other Stroke Chronic kidney disease (CKD) Lung disease Dementia Grandmother Stroke Dementia CAD (coronary artery disease) Grandfather CAD (coronary artery disease) Denies family history of Clotting disorder Suicide Bleeding disorder Social History Smoking and tobacco status: current every day smoker cigarettes Packs smoked per day: 0.5 Years cigarettes smoked: 40 [ Other cigarette details: Hx of 1 PPD x 25 Years] Quit status (tobacco): considering quitting Second hand smoke exposure: No Smoking risk assessment/counseling performed?: Yes Alcohol intake: never Lives independently: Yes Household members: spouse and family Marital status: service: No Current occupational status: employed Current occupation: [employer] Current occupational exposures/hazards: No Pets and animals: Yes History of recent travel: No Current gender identity: Male Physical Exam Const: COMMON NORMALS: alert HENMT: COMMON NORMALS: atraumatic HEAD & SCALP: atraumatic MOUTH: moist mucous membranes not abnormal Eye: COMMON NORMALS: EOMs intact bilaterally and conjunctivae normal CONJUNCTIVA: Yes conjunctivae normal Neck/C-Spine: COMMON NORMALS: full ROM and supple Resp: COMMON NORMALS: normal respiratory effort and clear to auscultation bilaterally AUSCULTATION: clear to auscultation bilaterally Cardio: COMMON NORMALS: regular rate RATE: regular rate GI: COMMON NORMALS: Soft to palpation PALPATION: Yes Soft to palpation OTHER: + Multiple laparoscopic surgical site well-healing. + Left upper quadrant laparoscopic site appearing erythematous and draining with moderate tenderness to palpation. No guarding rebound, guarding, rigidity. No CVA tenderness to percussion. Neg Bernard/Neg McBurney's point tenderness, no suprabupic tenderness to palpation. Extremity: COMMON NORMALS: full ROM Neuro: SENSORIUM/ORIENTATION: Yes alert MOTOR EXAM: No Abnormal motor strength present and Other motor observations present (no focal motor deficits) Psych: COMMON NORMALS: speech normal SPEECH: Yes normal speech MOOD & AFFECT: Yes euthymic mood Procedures Abscess I/D Site: abdomen Side (if applicable): left Sedation/analgesia: none Local Anesthetic: lidocaine 1% Amount of anesthesia used (mL): 10 Technique: other (opening of the wound with forcep) Amount of fluid expressed (mL): 15 Irrigation: Yes Packing used?: plain Complications: other (none) Course Vital Signs: Vital signs: Vital Signs Temperature 98.7 F 11/11/21 12:53 Pulse Rate 77 11/11/21 16:07 Respiratory Rate 20 H 11/11/21 16:07 Blood Pressure 160/98 11/11/21 13:55 Pulse Oximetry 100 11/11/21 16:07 [facility] - General Adult Medical Decision Making Patient is a 61-year-old male who underwent recent laparoscopic appendectomy presenting to the emergency room with complaints of surgical site pain, drainage and erythema. Patient on exam is afebrile is noted to have wound dehiscence along the left upper quadrant laparoscopic surgical site with drainage and erythema. The site appears to be significantly tender to palpation. No guarding no rebound tenderness. CT abdomen pelvis showed postoperative changes consistent with seroma. There is a right lower quadrant collection developing that is not minimal to drainage at this time. Patient is noted to have a white count of 14.9 compared to discharge leukocytosis of 11. Patient is afebrile, hemodynamically stable. Case was discussed with Dr. Vargas at 3:10pm who recommended close follow-up in clinic given findings of seroma and RLQ fluid collection. Patient received vancomycin and Zosyn for empirical coverage. I have attempted to reach Dr. Vargas again however I was unsuccessful to dsicuss the significant pus drainage from the incision site. I then called Dr. Macedo who recommended I&D of the surgical site. Dr. Macedo evaluate patient at bedside and assisted me in performing incision and drainage of supraumbilical site with drainage. Please refer to the procedure note for more info. The wound site is then packed. Patient is aware that he has an appointment in 1-2 day and instructed to follow-up closely with Dr. Vargas. Patient is given strict return precautions for any worsening symptoms including fever/chills, worsening pain, nausea/vomiting, or any new extremity complaints. Patient is instructed to continue taking augmentin. In addition, patient will be started on bactrim for coverage of MRSA I have given patient follow up with our caseworker protective services to be seen by Dr. Vargas in the next few days. Patient aware of a call from our caseworker protective services to schedule for appointment(s) and verbalizes understanding of the importance of following up. Rx bactrim DS BID x 7 days, instructed to continue taking augmentin Disposition: Discharge. Patient counseled regarding diagnostic impression, treatment plan. Patient given ED strict return precautions to return for continuation, worsening, or development of new symptoms. Instructed to f/u w/ Dr. Vargas regarding symptoms today. Patient verbalized understanding. Lab Data : 11/11/21 14:03 11/11/21 15:20 Radiology Impressions Abdomen/Pelvis CT 11/11/21 13:27 IMPRESSION: 1. Interval postoperative changes appendectomy. Small amount of fluid in the RIGHT lower quadrant. No evidence of drainable abscess or fluid collection. 2. Low-attenuation fluid collection measuring 4.0 x 3.0 cm along the surgical incision site likely postoperative seroma 3. Slightly distended loops of small bowel in the mid anterior abdomen with air-fluid levels .No high-grade obstruction. 4. No other significant changes compared to previous. 5. Postoperative changes ventral abdominal wall hernia repair with a small fluid collection unchanged since October 30, 2021. 6. Cholelithiasis and gallbladder sludge unchanged. 7. Stable 3.1 cm LEFT adrenal lesion likely adenoma. Laboratory Results WBC 14.9 10^3/uL (4.0-10.0) H 11/11/21 14:03 RBC 4.69 10^6/uL (4.1-5.3) 11/11/21 14:03 Hgb 14.5 g/dL (11.7-16.6) 11/11/21 14:03 Hct 45.1 % (42.0-52.0) 11/11/21 14:03 MCV 96.2 fl (80-94) H 11/11/21 14:03 MCH 30.9 pg (28.0-34.0) 11/11/21 14:03 MCHC 32.2 g/dL (30.0-36.0) 11/11/21 14:03 RDW 13.4 % (12.1-15.1) 11/11/21 14:03 Plt Count 403 10^3/cmm (130-400) H 11/11/21 14:03 MPV 9.0 fL (7.4-10.4) 11/11/21 14:03 Neut % (Auto) 81.9 % 11/11/21 14:03 Lymph % (Auto) 6.8 % 11/11/21 14:03 Greer % (Auto) 7.8 % 11/11/21 14:03 Eos % (Auto) 0.5 % 11/11/21 14:03 Baso % (Auto) 0.5 % 11/11/21 14:03 Neut # (Auto) 12.18 10^3/uL (1.8-7.7) H 11/11/21 14:03 Lymph # (Auto) 1.0 10^3/uL (0.8-4.8) 11/11/21 14:03 Greer # (Auto) 1.2 10^3/uL (0.2-0.9) H 11/11/21 14:03 Eos # (Auto) 0.1 10^3/uL (0.0-0.8) 11/11/21 14:03 Baso # (Auto) 0.1 10^3/uL (0.0-0.1) 11/11/21 14:03 Nucleated RBC % (auto) 0 % 11/11/21 14:03 Nucleated RBCs # 0.0 /100WBC 11/11/21 14:03 ESR 33 mm/hr (0-10) H 11/11/21 14:03 Sodium 130 mmol/L (136-145) L 11/11/21 15:20 Potassium 4.4 mmol/L (3.5-5.1) 11/11/21 15:20 Chloride 92 mmol/L (98-107) L 11/11/21 15:20 Carbon Dioxide 25 mmol/L (22-29) 11/11/21 15:20 Anion Gap 17.4 (5-19) 11/11/21 15:20 BUN 8 mg/dL (8-23) 11/11/21 15:20 Creatinine 0.7 mg/dL (0.7-1.2) 11/11/21 15:20 GFR Calculation 114.3 mL/min (90-130) 11/11/21 15:20 Glucose 90 mg/dL (65-115) 11/11/21 15:20 Calculated Osmolality 268 mOsm/kg (285-295) L 11/11/21 15:20 Lactate 0.9 mmol/L (0.5-2.2) 11/11/21 14:00 Calcium 9.7 mg/dL (8.5-10.5) 11/11/21 15:20 Total Bilirubin 0.7 mg/dL (0.15-1.2) 11/11/21 15:20 AST 27 U/L (0-40) 11/11/21 15:20 ALT 32 U/L (0-41) 11/11/21 15:20 Alkaline Phosphatase 74 IU/L (40-130) 11/11/21 15:20 C-Reactive Protein 77.6 mg/L (0.0-4.9) H 11/11/21 15:20 Total Protein 7.5 g/dL (6.6-8.7) 11/11/21 15:20 Albumin 3.2 g/dL (3.5-5.2) L 11/11/21 15:20 Globulin 4.3 g/dL (1.3-4.6) 11/11/21 15:20 Lipase 40 U/L (13-60) 11/11/21 15:20 Imaging Data Other Imaging: Radiologist's impression: [address] [place] [address] CT Scan Report Signed Patient: Sam Henson Unit #: [id number] : 1960 Age/Sex: 61 / M ADM Date: 11/11/21 Loc: ER Room/Bed: Attending Dr: Ordering Provider/Ordering MD: Minna Parr MD Date of Service: 11/11/21 Procedure(s): CT abdomen pelvis w con* [id number] Accession Number(s): [id number] Report Number: [id number] WS: [id number] CT ABDOMEN PELVIS TECHNIQUE: Contrast-enhanced CT of the abdomen and pelvis with coronal and sagittal reformatted images. CLINICAL INFORMATION: eval for surigical site infection COMPARISON: CT October 30, 2021 DLP: 1910.[address] scans at [facility] use at least one of these dose optimization techniques: automated exposure control; mA and/or kV adjustment per patient size (includes targeted exams where dose is matched to clinical indication); or iterative reconstruction. FINDINGS: Interval postoperative changes appendectomy in the RIGHT lower quadrant. Tiny amount of fluid in the RIGHT lower quadrant. No evidence of drainable abscess or fluid collection. Appendectomy clips. Small low-attenuation fluid collection along the midline anterior subcutaneous abdominal soft tissues along the incision site likely postoperative seroma ?Normal liver. Sludge and calculi in the gallbladder. No gallbladder wall thickening or pericholecystic fluid. Normal portal vein and splenic vein. Fatty atrophy of the pancreas. Normal spleen. Normal GE junction. Lung bases are well aerated. Coronary calcification. RIGHT adrenal gland is normal. LEFT adrenal lesion measuring 3.1 cm is unchanged. Normal caliber abdominal aorta. Sigmoid diverticulosis. No evidence of acute diverticulitis. Colon is decompressed.? Prior ventral abdominal wall hernia repair with hernia mesh. Small amount of fluid along the hernia mesh is unchanged compared to October 30, 2021. Slightly distended loops of small bowel in the midabdomen with air-fluid levels suspicious for developing small bowel obstruction versus postoperative adynamic ileus. Distal ileum is decompressed. Colon is decompressed. CT/CT abdomen pelvis w con* [id number] IMPRESSION: ? 1.? Interval postoperative changes appendectomy. Small amount of fluid in the RIGHT lower quadrant. No evidence of drainable abscess or fluid collection. 2.? Low-attenuation fluid collection measuring 4.0 x 3.0 cm along the surgical incision site likely postoperative seroma 3.? Slightly distended loops of small bowel in the mid anterior abdomen with air-fluid levels .No high-grade obstruction. 4.? No other significant changes compared to previous. 5.? Postoperative changes ventral abdominal wall hernia repair with a small fluid collection unchanged since October 30, 2021. 6.? Cholelithiasis and gallbladder sludge unchanged. 7.? Stable 3.1 cm LEFT adrenal lesion likely adenoma. ? Dictated By: Bro Madrid MD Signed By: Bro Madrid MD Signed Date/Time: 11/11/21 7417 DD/ 1435 Discharge Plan Discharge Patient Disposition: Home Clinical Impression: Seroma after procedure, Infected postoperative seroma Condition: Stable Prescriptions: New Bactrim DS 800-160 mg tablet 1 tab PO BID 7 Days Qty: 14 0RF No Action furosemide [Lasix] 20 mg tablet 20 mg PO DAILY Qty: 30 3RF albuterol sulfate 2.5 mg /3 mL (0.083 %) solution for nebulization 2.5 mg INHALATION Q4H PRN (Reason: shortness of breath or wheezing) Qty: 540 3RF Spiriva with HandiHaler 18 mcg capsule, w/inhalation device See Rx Instructions .ROUTE .COMPLEX Qty: 30 3RF Dose Instruction: INHALE CONTENTS OF ONE CAPSULE PER HANDIHALER ONCE DAILY Rx Instructions: INHALE CONTENTS OF ONE CAPSULE PER HANDIHALER ONCE DAILY metoprolol tartrate 25 mg tablet 25 mg PO BID Qty: 180 3RF budesonide-formoterol 160-4.5 mcg/actuation HFA aerosol inhaler 2 inh inhalation DAILY Qty: 10.2 3RF tramadol 50 mg tablet 50 mg PO Q8H PRN (Reason: pain) Qty: 10 0RF Nitrostat 0.4 mg Tablet, Sublingual 0.4 mg SUBLINGUAL Q5M PRN (Reason: Chest Pain) 0RF Rx Instructions: do not exceed 3 doses per episode omeprazole 20 mg Capsule,Delayed Release(Dr/Ec) 20 - 40 mg PO BEDTIME 0RF amoxicillin-pot clavulanate 875-125 mg tablet 1 tab PO BID 0RF duloxetine 60 mg capsule,delayed release(DR/EC) 60 mg PO QAM 0RF atorvastatin 40 mg tablet 40 mg PO BEDTIME 0RF amiodarone 200 mg tablet 200 mg PO QAM 0RF Adult Aspirin Regimen 81 mg tablet,delayed release (DR/EC) 81 mg PO QAM 0RF lisinopril 5 mg tablet 5 mg PO QAM 0RF albuterol sulfate 90 mcg/actuation HFA aerosol inhaler 2 puff inhalation Q4H PRN (Reason: shortness of breath or wheezing) 0RF Discharge Orders: Discharge ED (Routine); Ordered 11/11/21 Ordered By: Minna Parr Referrals: Elijah Louis FNP [Primary Care Provider] - Discharge Diet: Advance as tolerated Discharge Activity: Increase activity as tolerated Patient Instructions: Seroma (DC) Activity Restrictions/Additional Instructions: Please come back if you have any worsening abdominal pain, fever or chills, nausea or vomiting, diarrhea, blood in the stool, inability hold down liquid or solids, or any new concerning complaints. Please follow-up with Dr. Vargas in the next 1 to 2 days for further assessment of your symptoms Our caseworker protective services will have you follow-up with Dr. Vargas in the next few days. You would be expected to have a phone call with our caseworker protective services who will put you on the schedule. You can expect a call from us in the next 2-3 days. If you don't hear from us, call us back in the emergency room at [phone]. Coding Level of Care Code ED Air Valve Repairer for [facility] Fwbronson Exam Comprehensive
[2021-11-11 13:55] VITALS: BP 160/98; PULSE 77; RESP 16; O2SAT 99
[2021-11-11 14:14] LABS: Basophils # 0.1 10^3/uL (0.0-0.1); Basophils % 0.5 %; Eosinophils # 0.1 10^3/uL (0.0-0.8); Eosinophils % 0.5 %; Hematocrit 45.1 % (42.0-52.0); Hemoglobin 14.5 g/dL (11.7-16.6); Lymphocytes % 6.8 %; Mean Corpuscular HGB Conc 32.2 g/dL (30.0-36.0); Mean Corpuscular Hemoglobin 30.9 pg (28.0-34.0); Mean Corpuscular Volume 96.2 fl (80-94); Monocytes # 1.2 10^3/uL (0.2-0.9); Monocytes % 7.8 %; Neutrophils # 12.18 10^3/uL (1.8-7.7); Neutrophils % 81.9 %; Nucleated Red Blood Cells % 0 %; Platelet Count 403 10^3/cmm (130-400); Red Blood Count 4.69 10^6/uL (4.1-5.3); Red Cell Distribution Width 13.4 % (12.1-15.1); White Blood Count 14.9 10^3/uL (4.0-10.0)
[2021-11-11] MEDS: iohexol 300 mg/mL 100 mL Btl IV (14:17)
[2021-11-11 14:36] LABS: Lactate (Lactic Acid level) 0.9 mmol/L (0.5-2.2)
[2021-11-11 14:38] LABS: Erythrocyte Sedimentation Rate 33 mm/hr (0-10)
--- NOTE | 2021-11-11 14:41 | PC.PHAR ---
pt states he takes care of his own medications-pt states he is no longer taking flomax 0.4mg daily last filled 08/23/21 30d/s-notes are made in the pharmacy comments
--- NOTE | 2021-11-11 15:20 | PC.NURSE ---
Left AV IV infiltrated. Unable to start IV antibiotics at this time. ANGIE Fabian to restarted IV via Ultrasound.
[2021-11-11 15:57] LABS: Alanine Aminotransferase 32 U/L (0-41); Albumin Level 3.2 g/dL (3.5-5.2); Alkaline Phosphatase 74 IU/L (40-130); Aspartate Amino Transferase 27 U/L (0-40); Blood Urea Nitrogen 8 mg/dL (8-23); C Reactive Protein 77.6 mg/L (0.0-4.9); Calcium 9.7 mg/dL (8.5-10.5); Carbon Dioxide 25 mmol/L (22-29); Chloride 92 mmol/L (98-107); Globulin 4.3 g/dL (1.3-4.6); Glomerular Filtration Rate 114.3 mL/min (90-130); Glucose 90 mg/dL (65-115); Lipase 40 U/L (13-60); Osmolality Calculated 268 mOsm/kg (285-295); Sodium 130 mmol/L (136-145); Total Bilirubin 0.7 mg/dL (0.15-1.2); Total Protein 7.5 g/dL (6.6-8.7)
[2021-11-11 15:58] LABS: Anion Gap 17.4 (5-19); Potassium 4.4 mmol/L (3.5-5.1)
[2021-11-11] MEDS: piperacillin-tazobactam 4.5 GM in sodium chloride 0.9% (plus) 50 ML IV (16:00)
[2021-11-11 16:07] VITALS: PULSE 77; RESP 20; O2SAT 100
[2021-11-11] MEDS: vancomycin 1,000 MG in sodium chloride 0.9% 250 ML 250 MG IV (16:18)
[2021-11-11] MEDS: morphine 4 mg/mL SDV 1 mL IVP (16:24)
--- NOTE | 2021-11-11 16:37 | PC.NURSE ---
IV to Left AV infiltrated. Vanc gtt stopped. Will reattempt IV with ultrasound and restart vanc
--- NOTE | 2021-11-11 17:00 | PC.NURSE ---
Dr. Parr got IV access to the Left AC. Vanc started again.
[2021-11-11 17:06] VITALS: BP 150/72; PULSE 83; RESP 17; O2SAT 94
[2021-11-11] MEDS: HYDROmorphone 1 mg/mL INJ 1 mL 0.5 MG IVP (17:28)
[2021-11-11 17:29] VITALS: PULSE 85; RESP 17; O2SAT 100
--- NOTE | 2021-11-11 17:34 | PC.NURSE ---
IV removed at this time.
--- NOTE | 2021-11-11 17:35 | PC.NURSE ---
Pt's incision was dressed with a telfa, guaze, and a tegaderm. Pt educated on how to pack the wound, when to change the packing/dressing and education on keeping dressing clean and dry.
--- NOTE | 2021-11-12 12:34 | DCPLANNER ---
Addendum entered by Nunu Leger 11/13/21 15:08: practice manager spoke with Chance at Dr. Yun office, manager case was told that patient was seen on 11.12.21 - patient did attend appointment. Original Note: practice manager had message to schedule a follow up appointment for patient with Dr. Vargas. practice manager faxed patients information to the office of Dr. Vargas, patients information will be reviewed. Clinic will call patient with appointment information.
== END 2021-11-11 17:49 | disposition home or self-care (01) ==
PROVIDERS: Emergency Provider Emergency Medicine; PCP Nurse Practitioner
DX: L76.34 Postprocedural seroma of skin and subcutaneous tissue following other procedure (principal); F17.210 Nicotine dependence, cigarettes, uncomplicated
CPT/HCPCS: 10060; 36415; 74177; 80053; 83605; 83690; 85025; 85651; 86140; 87040; 96365; 96367; 96375; 99284; J1170; J2270; J2543; J3370; J7050; Q9967

== ENCOUNTER → 2022-02-21 12:16 | Outpatient (BNVA) | payer OTHER, SELFPAY | PROVIDERS: PCP Nurse Practitioner; Visit Provider Thoracic Surgery (Cardiothoracic Vascular Surgery) | DX: L98.499 Non-pressure chronic ulcer of skin of other sites with unspecified severity (principal) | CPT/HCPCS: 80053; 85025 ==

== ENCOUNTER → 2022-04-18 10:49 | Outpatient (BNVA) | payer MEDICARE, BC, SELFPAY | PROVIDERS: PCP Nurse Practitioner; Visit Provider Thoracic Surgery (Cardiothoracic Vascular Surgery) | DX: L98.499 Non-pressure chronic ulcer of skin of other sites with unspecified severity (principal) | CPT/HCPCS: 87070; 87176; 87205 ==

== ENCOUNTER → 2022-05-01 09:45 | Outpatient (BNVA) | payer MEDICARE, SELFPAY | PROVIDERS: PCP Nurse Practitioner; Visit Provider Specialist | DX: M17.0 Bilateral primary osteoarthritis of knee (principal) | CPT/HCPCS: 20610; J1100; J2795; J3301 ==

== ENCOUNTER → 2022-06-04 15:10 | Outpatient (BNVA) | payer MEDICARE, SELFPAY | PROVIDERS: PCP Nurse Practitioner; Visit Provider Internal Medicine Pulmonary Disease | DX: J44.1 Chronic obstructive pulmonary disease with (acute) exacerbation (principal); F17.210 Nicotine dependence, cigarettes, uncomplicated; J96.11 Chronic respiratory failure with hypoxia; G47.33 Obstructive sleep apnea (adult) (pediatric); Z71.6 Tobacco abuse counseling; Z12.2 Encounter for screening for malignant neoplasm of respiratory organs; J22 Unspecified acute lower respiratory infection; R29.898 Other symptoms and signs involving the musculoskeletal system; Z99.81 Dependence on supplemental oxygen | CPT/HCPCS: 99214 ==

== ENCOUNTER 2022-07-07 10:57 | Outpatient (CLI) | payer MEDICARE, SELFPAY ==
--- NOTE | 2022-07-07 11:00 | CT_ITS ---
WS: [id number] LDCT LUNG CANCER SCREENING TECHNIQUE: Noncontrast CT of the chest with coronal and sagittal reformatted images. CLINICAL INFORMATION: lung screening COMPARISON: CTA 2020, CT chest 2019 DLP: 71.51 mGy.cm DIvol: Mean CTDIvol: 1.60 (mGy) All CT scans at [facility] use at least one of these dose optimization techniques: automat ed exposure control; mA and/or kV adjustment per patient size (includes targeted exams where dose is matched to clinical indication); or iterative reconstruction. FINDINGS: No acute pulmonary infiltrates. No suspicious pulmonary parenchymal abnormalities. No media stinal or hilar lymphadenopathy. No axillary lymphadenopathy. Centrilobular emphysematous changes more prominent in the upper lobes. Stable LEFT adrenal adenoma me asuring 2.1 cm. Moderate thoracic kyphosis with hypertrophic changes. Cholelithiasis. Fatty atrophy o f the pancreas. Coronary calcification. Fatty atrophy of the pancreas. CT/CT lung screening [id number] IMPRESSION: LUNG-RADS: 1-Negative FOLLOW UP: 12 Month: Continue annual screening with LDCT
== END 2022-07-07 10:58 | disposition home or self-care (01) ==
PROVIDERS: PCP Nurse Practitioner; Visit Provider Internal Medicine Pulmonary Disease
DX: Z12.2 Encounter for screening for malignant neoplasm of respiratory organs (principal); F17.210 Nicotine dependence, cigarettes, uncomplicated; J44.9 Chronic obstructive pulmonary disease, unspecified
CPT/HCPCS: 71271

== ENCOUNTER 2022-07-31 14:16 | Emergency (ER) | payer MEDICARE, BC, MEDICAID, SELFPAY ==
[2022-07-31 14:31] VITALS: BP 128/80; PULSE 86; RESP 14; TEMP 36.9; O2SAT 96; BMI 40.1
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
[2022-07-31 16:34] VITALS: BP 130/88; PULSE 82; RESP 20; O2SAT 100
[2022-07-31] MEDS: tetanus-dipt-pertussis 0.5 mL SDV IM (16:49)
[2022-07-31 16:54] LABS: Basophils # 0.1 10^3/uL (0.0-0.1); Basophils % 0.5 %; Eosinophils % 0.1 %; Hematocrit 46.1 % (42.0-52.0); Hemoglobin 15.1 g/dL (11.7-16.6); Lymphocytes # 1.2 10^3/uL (0.8-4.8); Lymphocytes % 12.1 %; Mean Corpuscular HGB Conc 32.8 g/dL (30.0-36.0); Mean Corpuscular Hemoglobin 32.2 pg (28.0-34.0); Mean Corpuscular Volume 98.3 fl (80-94); Mean Platelet Volume 8.7 fL (7.4-10.4); Monocytes # 1.5 10^3/uL (0.2-0.9); Monocytes % 15.1 %; Neutrophils # 6.92 10^3/uL (1.8-7.7); Neutrophils % 71.1 %; Nucleated Red Blood Cells % 0 %; Platelet Count 232 10^3/cmm (130-400); Red Blood Count 4.69 10^6/uL (4.1-5.3); Red Cell Distribution Width 13.2 % (12.1-15.1); White Blood Count 9.7 10^3/uL (4.0-10.0)
[2022-07-31] MEDS: ondansetron 2 mg/ML SDV 2 mL 4 MG IVP (17:04)
[2022-07-31] MEDS: morphine 4 mg/mL SDV 1 mL IVP ×2 (17:04→19:51)
[2022-07-31 17:11] LABS: Alanine Aminotransferase 24 U/L (0-41); Albumin Level 3.9 g/dL (3.5-5.2); Alkaline Phosphatase 81 U/L (40-130); Anion Gap 13.9 (5-19); Aspartate Amino Transferase 30 U/L (0-40); Blood Urea Nitrogen 14 mg/dL (8-23); Carbon Dioxide 29 mmol/L (22-29); Chloride 97 mmol/L (98-107); Globulin 3.3 g/dL (1.3-4.6); Glomerular Filtration Rate 97.6 mL/min (90-130); Glucose 104 mg/dL (65-115); Osmolality Calculated 283 mOsm/kg (285-295); Potassium 3.9 mmol/L (3.5-5.1); Sodium 136 mmol/L (136-145); Total Bilirubin 0.3 mg/dL (0.15-1.2); Total Protein 7.2 g/dL (6.6-8.7)
[2022-07-31 18:29] VITALS: BP 168/91; PULSE 82; RESP 23; O2SAT 99
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
[2022-07-31 19:14] VITALS: BP 119/72; PULSE 87; RESP 22; O2SAT 99
[2022-07-31] MEDS: iohexol 350 mg/mL 500 mL Btl (per mL) IV (19:24)
[2022-07-31 19:51] VITALS: RESP 20
[2022-07-31 20:43] VITALS: BP 125/78; PULSE 94; RESP 22; O2SAT 97
[2022-07-31] MEDS: HYDROcodone-acetaminophen 5-325 mg Tablet 1 TAB PO (20:46)
== END 2022-07-31 22:40 | disposition home or self-care (01) ==
PROVIDERS: Family Medicine; Nurse Practitioner Family; Emergency Provider Emergency Medicine; PCP Nurse Practitioner
DX: S10.91XA Abrasion of unspecified part of neck, initial encounter (principal); S30.1XXA Contusion of abdominal wall, initial encounter; Z79.82 Long term (current) use of aspirin; F17.210 Nicotine dependence, cigarettes, uncomplicated; I25.10 Atherosclerotic heart disease of native coronary artery without angina pectoris; J44.9 Chronic obstructive pulmonary disease, unspecified; E78.5 Hyperlipidemia, unspecified; I10 Essential (primary) hypertension; V89.2XXA Person injured in unspecified motor-vehicle accident, traffic, initial encounter; Z23 Encounter for immunization
CPT/HCPCS: 70491; 71260; 72125; 73130; 74177; 76705; 80053; 85025; 90471; 90715; 96374; 96375; 96376; 99285; J2270; J2405; Q9967

== ENCOUNTER → 2022-08-29 13:02 | Outpatient (BNVA) | payer MEDICARE, BC, SELFPAY | PROVIDERS: PCP Nurse Practitioner; Visit Provider Thoracic Surgery (Cardiothoracic Vascular Surgery) | DX: T81.31XD Disruption of external operation (surgical) wound, not elsewhere classified, subsequent encounter (principal); Y83.8 Other surgical procedures as the cause of abnormal reaction of the patient, or of later complication, without mention of misadventure at the time of the procedure | CPT/HCPCS: 11042; 87070; 87077; 87186; 99213; A6446 ==

== ENCOUNTER → 2022-09-05 11:46 | Outpatient (BNVA) | payer MEDICARE, BC, SELFPAY | PROVIDERS: PCP Nurse Practitioner; Visit Provider Thoracic Surgery (Cardiothoracic Vascular Surgery) | DX: T81.31XD Disruption of external operation (surgical) wound, not elsewhere classified, subsequent encounter (principal); Y83.8 Other surgical procedures as the cause of abnormal reaction of the patient, or of later complication, without mention of misadventure at the time of the procedure | CPT/HCPCS: 11042 ==

== ENCOUNTER → 2022-09-19 11:37 | Outpatient (BNVA) | payer MEDICARE, BC, SELFPAY | PROVIDERS: PCP Nurse Practitioner; Visit Provider Thoracic Surgery (Cardiothoracic Vascular Surgery) | DX: T81.31XD Disruption of external operation (surgical) wound, not elsewhere classified, subsequent encounter (principal); Y83.8 Other surgical procedures as the cause of abnormal reaction of the patient, or of later complication, without mention of misadventure at the time of the procedure; I96 Gangrene, not elsewhere classified | CPT/HCPCS: 11042; A6219 ==

== ENCOUNTER → 2022-09-26 12:00 | Outpatient (BNVA) | payer MEDICARE, BC, SELFPAY | PROVIDERS: PCP Nurse Practitioner; Visit Provider Thoracic Surgery (Cardiothoracic Vascular Surgery) | DX: T81.31XD Disruption of external operation (surgical) wound, not elsewhere classified, subsequent encounter (principal); Y83.8 Other surgical procedures as the cause of abnormal reaction of the patient, or of later complication, without mention of misadventure at the time of the procedure | CPT/HCPCS: 11042; A6219 ==

== ENCOUNTER → 2022-10-03 13:01 | Outpatient (BNVA) | payer MEDICARE, BC, SELFPAY | PROVIDERS: PCP Nurse Practitioner; Visit Provider Thoracic Surgery (Cardiothoracic Vascular Surgery) | DX: T81.31XD Disruption of external operation (surgical) wound, not elsewhere classified, subsequent encounter (principal); Y83.8 Other surgical procedures as the cause of abnormal reaction of the patient, or of later complication, without mention of misadventure at the time of the procedure; I96 Gangrene, not elsewhere classified | CPT/HCPCS: 11042 ==

== ENCOUNTER → 2022-10-17 13:43 | Outpatient (BNVA) | payer MEDICARE, BC, SELFPAY | PROVIDERS: PCP Nurse Practitioner; Visit Provider Thoracic Surgery (Cardiothoracic Vascular Surgery) | DX: T81.31XD Disruption of external operation (surgical) wound, not elsewhere classified, subsequent encounter (principal); Y83.8 Other surgical procedures as the cause of abnormal reaction of the patient, or of later complication, without mention of misadventure at the time of the procedure; I96 Gangrene, not elsewhere classified | CPT/HCPCS: 11042 ==

== ENCOUNTER → 2022-10-31 13:52 | Outpatient (BNVA) | payer MEDICARE, BC, SELFPAY | PROVIDERS: PCP Nurse Practitioner; Visit Provider Thoracic Surgery (Cardiothoracic Vascular Surgery) | DX: T81.31XD Disruption of external operation (surgical) wound, not elsewhere classified, subsequent encounter (principal); Y83.8 Other surgical procedures as the cause of abnormal reaction of the patient, or of later complication, without mention of misadventure at the time of the procedure; I96 Gangrene, not elsewhere classified | CPT/HCPCS: 11042 ==

== ENCOUNTER → 2022-11-07 15:01 | Outpatient (BNVA) | payer MEDICARE, BC, SELFPAY | PROVIDERS: PCP Nurse Practitioner; Visit Provider Thoracic Surgery (Cardiothoracic Vascular Surgery) | DX: T81.31XD Disruption of external operation (surgical) wound, not elsewhere classified, subsequent encounter (principal); Y83.8 Other surgical procedures as the cause of abnormal reaction of the patient, or of later complication, without mention of misadventure at the time of the procedure | CPT/HCPCS: 11042; A6212 ==

== ENCOUNTER → 2022-11-21 14:04 | Outpatient (BNVA) | payer MEDICARE, BC, SELFPAY | PROVIDERS: PCP Nurse Practitioner; Visit Provider Thoracic Surgery (Cardiothoracic Vascular Surgery) | DX: T81.31XD Disruption of external operation (surgical) wound, not elsewhere classified, subsequent encounter (principal); Y83.8 Other surgical procedures as the cause of abnormal reaction of the patient, or of later complication, without mention of misadventure at the time of the procedure | CPT/HCPCS: 11042 ==

== ENCOUNTER → 2022-12-04 08:53 | Outpatient (BNVA) | payer MEDICARE, BC, SELFPAY | PROVIDERS: PCP Nurse Practitioner; Visit Provider Specialist | DX: M17.0 Bilateral primary osteoarthritis of knee (principal) | CPT/HCPCS: 20610; J1100; J2795; J3301 ==

== ENCOUNTER 2023-01-06 20:00 | Outpatient (CLI) | payer MEDICARE, BC, SELFPAY | END 2023-01-07 05:27 | disposition home or self-care (01) | LOC: SLEEP 01-09 12:05 | PROVIDERS: PCP Nurse Practitioner; Visit Provider Nurse Practitioner | DX: G47.33 Obstructive sleep apnea (adult) (pediatric) (principal) | CPT/HCPCS: 95811 ==

== ENCOUNTER → 2023-01-26 13:04 | Outpatient (BNVA) | payer MEDICARE, SELFPAY | PROVIDERS: PCP Nurse Practitioner; Visit Provider Internal Medicine Pulmonary Disease | DX: J44.1 Chronic obstructive pulmonary disease with (acute) exacerbation (principal); G47.33 Obstructive sleep apnea (adult) (pediatric); J96.11 Chronic respiratory failure with hypoxia; Z71.6 Tobacco abuse counseling; R29.898 Other symptoms and signs involving the musculoskeletal system; F17.210 Nicotine dependence, cigarettes, uncomplicated; Z99.81 Dependence on supplemental oxygen | CPT/HCPCS: 99214 ==

== ENCOUNTER 2023-02-16 12:59 | Outpatient (CLI) | payer MEDICARE, SELFPAY ==
[2023-02-16 13:29] VITALS: PULSE 57; RESP 18; O2SAT 95
[2023-02-16] MEDS: albuterol 2.5 mg/3 mL Neb INHALATION (13:29)
[2023-02-16 13:34] VITALS: PULSE 56
== END 2023-02-16 13:00 | disposition home or self-care (01) ==
LOC: RT 13:01
PROVIDERS: PCP Nurse Practitioner; Visit Provider Internal Medicine Pulmonary Disease
DX: R06.02 Shortness of breath (principal)
CPT/HCPCS: 94060; 94618; 94726; 94729; J7613

== ENCOUNTER → 2023-02-25 08:16 | Outpatient (BNVA) | payer MEDICARE, BC, SELFPAY | PROVIDERS: PCP Nurse Practitioner; Visit Provider Thoracic Surgery (Cardiothoracic Vascular Surgery) | DX: T81.31XD Disruption of external operation (surgical) wound, not elsewhere classified, subsequent encounter (principal); Y83.8 Other surgical procedures as the cause of abnormal reaction of the patient, or of later complication, without mention of misadventure at the time of the procedure | CPT/HCPCS: 11042; 99213 ==

== ENCOUNTER → 2023-03-04 12:59 | Outpatient (BNVA) | payer MEDICARE, MEDICAID, SELFPAY | PROVIDERS: PCP Nurse Practitioner; Visit Provider Thoracic Surgery (Cardiothoracic Vascular Surgery) | DX: T81.31XD Disruption of external operation (surgical) wound, not elsewhere classified, subsequent encounter (principal); Y83.8 Other surgical procedures as the cause of abnormal reaction of the patient, or of later complication, without mention of misadventure at the time of the procedure | CPT/HCPCS: 11042 ==

== ENCOUNTER → 2023-03-18 10:41 | Outpatient (BNVA) | payer MEDICARE, MEDICAID, SELFPAY | PROVIDERS: PCP Nurse Practitioner; Visit Provider Thoracic Surgery (Cardiothoracic Vascular Surgery) | DX: T81.31XD Disruption of external operation (surgical) wound, not elsewhere classified, subsequent encounter (principal); Y83.8 Other surgical procedures as the cause of abnormal reaction of the patient, or of later complication, without mention of misadventure at the time of the procedure | CPT/HCPCS: 99212 ==

== ENCOUNTER → 2023-03-19 13:01 | Outpatient (BNVA) | payer MEDICARE, MEDICAID, SELFPAY | PROVIDERS: PCP Nurse Practitioner; Visit Provider Specialist | DX: M17.0 Bilateral primary osteoarthritis of knee (principal) | CPT/HCPCS: 20610; J1100; J2795; J3301 ==

== ENCOUNTER → 2023-04-07 15:12 | Outpatient (BNVA) | payer MEDICARE, MEDICAID, SELFPAY | PROVIDERS: PCP Nurse Practitioner; Visit Provider Internal Medicine Cardiovascular Disease | DX: I25.10 Atherosclerotic heart disease of native coronary artery without angina pectoris (principal); E78.5 Hyperlipidemia, unspecified; J96.11 Chronic respiratory failure with hypoxia; F17.210 Nicotine dependence, cigarettes, uncomplicated; I10 Essential (primary) hypertension | CPT/HCPCS: 99214 ==

== ENCOUNTER 2023-04-15 20:00 | Outpatient (CLI) | payer MEDICARE, MEDICAID, SELFPAY | END 2023-04-15 20:01 | disposition home or self-care (01) | LOC: SLEEP 04-16 04:18 | PROVIDERS: PCP Nurse Practitioner; Visit Provider Internal Medicine Pulmonary Disease | DX: G47.33 Obstructive sleep apnea (adult) (pediatric) (principal) | CPT/HCPCS: 95811 ==

== ENCOUNTER 2023-04-16 09:02 | Outpatient (CLI) | payer MEDICARE, MEDICAID, SELFPAY ==
--- NOTE | 2023-04-16 | ECG_ITS ---
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 Interpretive Statements NAME OF STUDY: LEXISCAN SESTAMIBI STRESS TEST INDICATION: Chest Pain, PROCEDURE: At the baseline, the EKG revealed sinus bradycardia with a rate of [address]-T changes.. The baseline heart was 130/66 bpm with a blood pressue of 55 mm of Hg Lexiscan was infused over a period of 20 seconds. A total of 0.4 milligrams of Lexiscan was infused. The stress phase was continued for a total of 5 minutes. Heart rate at the end of the stress phase was 86 bpm with a blood pressure 102/69 mm of Hg. The EKG at the peak infusion revealed no significant changes. Sestamibi was injected 20 seconds after the Lexiscan infusion. Heart rate at the end of the recovery phase was 57 bpm with a blood pressure of 120/69 and mm of Hg. CONCLUSION: 1. No significant EKG changes with the LexiScan infusion 2. No LexiScan induced chest pain or cardiac arrhythmia 3. Normal blood pressure and heart rate response 4. Sestamibi/sestamibi perfusion scan pending; see separate report. Electronically Signed On 04-17-2023 10:35:22 CDT by Sherif Orozco M.D. [id number]
[2023-04-16 09:27] VITALS: BMI 40.7
--- NOTE | 2023-04-16 10:17 | NMCV_ITS ---
NM ck perf SPECT r/s* [id number] Sam Henson Age: 63 Gender: M : 1960 Exam Date: 04/16/2023 10:37 Ordering Phys: Sherif Orozco MD ([email or web address]) Technologist: LARISA Jenkins Exam Location: [facility] Indications: CORONARY ANGIOPLASTY STATUS STRESS TEST Please [facility] IMAGE PROTOCOL Rest/Stress 1 Lexiscan Day Radiopharmaceutical Dose (mCi) Administration Site Administered by Rest: Tc-99m 10.8 IV LARISA Melendrez Sestamibi Stress:Tc-99m 32.8 IV LARISA Jenkins Sestamirancho Rest: 16-Apr-2023 60 Discovery 630 Stress: 16-Apr-2023 30 Discovery 630 0.4mg Lexiscan. Supine position only as patient was unable to lay prone. SPECT RESULTS Technical Quality: Excellent Raw Data Analysis: Normal Image Corrections: No attenuation or motion correction applied Summed Stress Score: 5 Summed Rest Score: 1 Summed Difference Score: 4 PERFUSION FINDINGS Has mild to moderate area of minimal to moderately decreased tracer uptake was noted in the basal and mid inferolateral and apical lateral regions. Significant reversibility was noted at rest in the apical lateral and mid inferolateral regions. FUNCTIONAL RESULTS (calculated via Gated SPECT) Stress Image LV EF (%): 56 Stress EDV (mL):127 TID: 0.89 Stress ESV (mL):56 FUNCTIONAL FINDINGS: Segmental wall motion analysis revealing no gross wall motion abnormalities IMPRESSIONS 1. Myocardial perfusion imaging revealing a small area of reversible defect involving the apical lateral and mid inferolateral region, suggesting ischemia in the distribution of the left circumflex artery. 2. Normal LV ejection fraction of 56%. 3. LV wall motion analysis revealing no gross wall motion abnormalities. 4. Normal LV volume Compared to the study from 02/24/2020, the ischemic score has slightly increased. However the transient ischemic dilatation ratio and ejection fraction normal, at this time. Clinical correlation is recommended Dr Sherif Orozco MD [facility] (Electronically Signed) Final Date: 16 April 2023 13:55 S
[2023-04-16] MEDS: regadenoson 0.4 Mg/5 ml Syringe IVP (11:31)
[2023-04-16 11:38] VITALS: BP 120/69; PULSE 58
== END 2023-04-16 09:03 | disposition home or self-care (01) ==
LOC: CDL 09:03
PROVIDERS: PCP Nurse Practitioner; Visit Provider Internal Medicine Cardiovascular Disease
DX: R07.9 Chest pain, unspecified (principal)
CPT/HCPCS: 36415; 78452; 93017; 96374; A9500; J2785

== ENCOUNTER 2023-04-17 06:00 | Outpatient (RCR) | payer MEDICARE, MEDICAID, SELFPAY | END 2023-05-09 23:59 | disposition home or self-care (01) | LOC: GPT 06:00 | PROVIDERS: PCP Nurse Practitioner; Visit Provider Nurse Practitioner | DX: M54.9 Dorsalgia, unspecified (principal) | CPT/HCPCS: 97110; 97112; 97140; 97162 ==

== ENCOUNTER → 2023-05-06 14:09 | Outpatient (BNVA) | payer MEDICARE, MEDICAID, SELFPAY | PROVIDERS: PCP Nurse Practitioner; Visit Provider Thoracic Surgery (Cardiothoracic Vascular Surgery) | DX: T81.31XD Disruption of external operation (surgical) wound, not elsewhere classified, subsequent encounter (principal); Y83.8 Other surgical procedures as the cause of abnormal reaction of the patient, or of later complication, without mention of misadventure at the time of the procedure | CPT/HCPCS: 11042; 99213 ==

== ENCOUNTER 2023-05-10 06:00 | Outpatient (RCR) | payer MEDICARE, MEDICAID, SELFPAY | END 2023-06-09 23:59 | disposition home or self-care (01) | LOC: GPT 06:00 | PROVIDERS: PCP Nurse Practitioner; Visit Provider Nurse Practitioner | DX: M54.9 Dorsalgia, unspecified (principal) | CPT/HCPCS: 97110; 97112; 97164; 97530 ==

== ENCOUNTER → 2023-05-13 14:04 | Outpatient (BNVA) | payer MEDICARE, MEDICAID, SELFPAY | PROVIDERS: PCP Nurse Practitioner; Visit Provider Thoracic Surgery (Cardiothoracic Vascular Surgery) | DX: T81.31XD Disruption of external operation (surgical) wound, not elsewhere classified, subsequent encounter (principal); Y83.8 Other surgical procedures as the cause of abnormal reaction of the patient, or of later complication, without mention of misadventure at the time of the procedure | CPT/HCPCS: 99212 ==

== ENCOUNTER → 2023-05-14 10:52 | Outpatient (BNVA) | payer MEDICARE, MEDICAID, SELFPAY | PROVIDERS: PCP Nurse Practitioner; Visit Provider Internal Medicine Cardiovascular Disease | DX: I25.118 Atherosclerotic heart disease of native coronary artery with other forms of angina pectoris (principal); J44.1 Chronic obstructive pulmonary disease with (acute) exacerbation; E78.5 Hyperlipidemia, unspecified; I10 Essential (primary) hypertension; Z79.899 Other long term (current) drug therapy; I47.20 Ventricular tachycardia, unspecified; F17.210 Nicotine dependence, cigarettes, uncomplicated | CPT/HCPCS: 99214 ==

== ENCOUNTER 2023-05-26 16:03 | Outpatient (CLI) | payer MEDICARE, MEDICAID, SELFPAY ==
--- NOTE | 2023-05-26 16:11 | XR_ITS ---
WS: [id number] Lumbar spine with flexion, extension, and neutral lateral, 05/26/2023 Clinical Data: Vertebrogenic low back pain Comparison: Lumbar spine, 02/13/2021 Findings: No compression fractures or subluxation is seen. There is degenerative disc narrowing at L4-L5 and L5 -S1. There are anterior osteophytes from T11-L2. No limitation of motion or subluxation is seen. There is calcification of the wall of the abdominal aorta but no aneurysm. Impression: 1. Osteoarthritis T10-L2. 2. Degenerative disc narrowing at L4-L5 and L5-S1. 3. Negative for limitation of motion or subluxation on flexion or extension.
== END 2023-05-26 16:04 | disposition home or self-care (01) ==
PROVIDERS: PCP Nurse Practitioner; Visit Provider Nurse Practitioner
DX: M54.51 Vertebrogenic low back pain (principal); M47.896 Other spondylosis, lumbar region; M47.897 Other spondylosis, lumbosacral region
CPT/HCPCS: 72120

== ENCOUNTER → 2023-07-20 13:12 | Outpatient (BNVA) | payer MEDICARE, MEDICAID, SELFPAY | PROVIDERS: PCP Nurse Practitioner; Visit Provider Internal Medicine Pulmonary Disease | DX: J44.1 Chronic obstructive pulmonary disease with (acute) exacerbation (principal); J96.11 Chronic respiratory failure with hypoxia; Z12.2 Encounter for screening for malignant neoplasm of respiratory organs; R29.898 Other symptoms and signs involving the musculoskeletal system; G47.33 Obstructive sleep apnea (adult) (pediatric); Z87.891 Personal history of nicotine dependence | CPT/HCPCS: 99214 ==

== ENCOUNTER 2023-08-04 12:15 | Outpatient (CLI) | payer MEDICARE, MEDICAID, SELFPAY ==
--- NOTE | 2023-08-04 12:30 | CT_ITS ---
WS: [id number] LDCT LUNG CANCER SCREENING TECHNIQUE: Noncontrast CT of the chest with coronal and sagittal reformatted images. CLINICAL INFORMATION: Cancer Screen COMPARISON: CT lung screening 07/07/2022 DLP: 184.21 mGy.cm DIvol: Mean CTDIvol: 4.90 (mGy) All CT scans at [facility] use at least one of these dose optimization techniques: automat ed exposure control; mA and/or kV adjustment per patient size (includes targeted exams where dose is matched to clinical indication); or iterative reconstruction. FINDINGS: Lungs are well aerated. No suspicious pulmonary parenchymal abnormalities. No mediastinal or hilar ly mphadenopathy. No axillary lymphadenopathy. Centrilobular emphysematous changes more prominent in the upper lobes. Stable LEFT adrenal adenoma me asuring 2.1 cm. Thoracic kyphosis with hypertrophic changes. Cholelithiasis. Fatty atrophy of the mohr creas. Coronary calcification. Normal caliber thoracic aorta. Aortic calcification. IMPRESSION: CT/CT lung screening [id number] LUNG-RADS: 1-Negative FOLLOW UP: 12 Month: Continue annual screening with LDCT
== END 2023-08-04 12:16 | disposition home or self-care (01) ==
LOC: RAD 12:15
PROVIDERS: PCP Nurse Practitioner; Visit Provider Internal Medicine Pulmonary Disease
DX: Z12.2 Encounter for screening for malignant neoplasm of respiratory organs (principal); F17.210 Nicotine dependence, cigarettes, uncomplicated
CPT/HCPCS: 71271

== ENCOUNTER → 2023-10-20 16:17 | Outpatient (BNVA) | payer MEDICARE, SELFPAY | PROVIDERS: PCP Nurse Practitioner; Visit Provider Internal Medicine Cardiovascular Disease | DX: R07.9 Chest pain, unspecified (principal); R06.02 Shortness of breath; R00.1 Bradycardia, unspecified; I21.9 Acute myocardial infarction, unspecified; I10 Essential (primary) hypertension | CPT/HCPCS: 36415; 80048; 83880; 93005; 99214 ==

== ENCOUNTER → 2023-11-19 13:56 | Outpatient (BNVA) | payer MEDICARE, SELFPAY | PROVIDERS: PCP Nurse Practitioner; Visit Provider Internal Medicine Pulmonary Disease | DX: J44.1 Chronic obstructive pulmonary disease with (acute) exacerbation (principal); J96.11 Chronic respiratory failure with hypoxia; G47.33 Obstructive sleep apnea (adult) (pediatric); Z99.89 Dependence on other enabling machines and devices; Z87.891 Personal history of nicotine dependence | CPT/HCPCS: 99214 ==

== ENCOUNTER → 2024-04-20 10:10 | Outpatient (BNVA) | payer MEDICARE, SELFPAY | PROVIDERS: PCP Nurse Practitioner; Visit Provider Nurse Practitioner Family | DX: I25.10 Atherosclerotic heart disease of native coronary artery without angina pectoris (principal); I10 Essential (primary) hypertension; Z87.891 Personal history of nicotine dependence | CPT/HCPCS: 99214 ==

== ENCOUNTER 2024-05-04 07:16 | Outpatient (CLI) | payer MEDICARE, SELFPAY ==
--- NOTE | 2024-05-04 08:15 | USCV_ITS ---
Sam Henson Age: 64 Gender: M : 1960 Exam Date: 05/04/2024 08:05 Ordering Phys: Kellie Carrera Technologist: MO [place] [facility] [place]: purple toes Risk Factors: Previous Vascular Surgery: RIGHT LEFT Waveform Velocity (cm/s) Velocity (cm/s) Waveform Triphasic 105.5 Iliac Prox 95.2 Triphasic Triphasic 140.4 Iliac Mid 97.9 Triphasic Triphasic 154.3 Iliac Distal 102.2 Triphasic Triphasic 109.0 BUSINESS ANALYSIS SPECIALIST 69.0 Triphasic Triphasic 83.0 SFA Prox 140.0 Triphasic Triphasic 83.0 SFA Mid 110.0 Triphasic Triphasic 113.0 SFA Dist 90.0 Triphasic Triphasic 62.0 POP 65.0 Triphasic Triphasic 56.0 NETWORK ADMINISTRATOR 66.0 Triphasic Triphasic 52.0 DPA 44.0 Triphasic 0.9 BETTINA 1.0 FINDINGS Intimal thickening and minimal plaque in the femoral arteries bilaterally. Normal Doppler waveforms and velocities. Resting BETTINA of 0.9 on the right and 1.[address] Sherif Orozco MD [facility] (Electronically Signed) Final Date: 05 May 2024 17:16 S
== END 2024-05-04 07:17 | disposition home or self-care (01) ==
PROVIDERS: PCP Nurse Practitioner; Visit Provider Nurse Practitioner Family
DX: I70.203 Unspecified atherosclerosis of native arteries of extremities, bilateral legs (principal); I25.10 Atherosclerotic heart disease of native coronary artery without angina pectoris
CPT/HCPCS: 93925

== ENCOUNTER → 2024-06-02 11:33 | Outpatient (BNVA) | payer MEDICARE, SELFPAY | PROVIDERS: PCP Nurse Practitioner; Visit Provider Nurse Practitioner Family | DX: R00.1 Bradycardia, unspecified (principal); I47.20 Ventricular tachycardia, unspecified; I44.0 Atrioventricular block, first degree; I73.9 Peripheral vascular disease, unspecified | CPT/HCPCS: 93005; 99214 ==

== ENCOUNTER → 2024-06-09 13:02 | Outpatient (BNVA) | payer MEDICARE, SELFPAY | PROVIDERS: PCP Nurse Practitioner; Visit Provider Internal Medicine Cardiovascular Disease | DX: R00.1 Bradycardia, unspecified (principal); I44.0 Atrioventricular block, first degree | CPT/HCPCS: 93005 ==

== ENCOUNTER → 2024-11-17 15:19 | Outpatient (BNVA) | payer MEDICARE, SELFPAY | PROVIDERS: PCP Nurse Practitioner; Visit Provider Internal Medicine Cardiovascular Disease | DX: I25.10 Atherosclerotic heart disease of native coronary artery without angina pectoris (principal); E78.5 Hyperlipidemia, unspecified; I47.20 Ventricular tachycardia, unspecified; R06.02 Shortness of breath; I95.2 Hypotension due to drugs | CPT/HCPCS: 99214 ==

== ENCOUNTER → 2025-07-04 11:15 | Outpatient (BNVA) | payer MEDICARE, SELFPAY | PROVIDERS: PCP Nurse Practitioner; Visit Provider Nurse Practitioner Family | DX: I95.2 Hypotension due to drugs (principal); I25.118 Atherosclerotic heart disease of native coronary artery with other forms of angina pectoris; I47.29 Other ventricular tachycardia; E78.5 Hyperlipidemia, unspecified; I49.9 Cardiac arrhythmia, unspecified; R07.89 Other chest pain; R94.2 Abnormal results of pulmonary function studies; Z87.891 Personal history of nicotine dependence; R07.9 Chest pain, unspecified | CPT/HCPCS: 93005; 99214 ==

== ENCOUNTER 2025-07-17 07:46 | Outpatient (CLI) | payer MEDICARE, SELFPAY ==
--- NOTE | 2025-07-17 07:45 | USCV_ITS ---
Sam Henson Age: 65 Gender: M : 1960 Exam Date: 07/17/2025 08:11 Ordering Phys: María Renee NP Technologist: REINIER Exam Location: [facility] [place] Indication: SoB BP: 108 / 62 HR: 53 Rhythm: Sinus Technical Quality: Adequate MEASUREMENTS (Male / Female) Normal Values 2D ECHO LV Diastolic Diameter PLAX 6.9 cm 4.2 - 5.9 / 3.9 - 5.3 cm IVS Diastolic Thickness 0.9 cm 0.6 - 1.0 / 0.6 - 0.9 cm IVS Systolic Thickness 0.9 cm LVPW Diastolic Thickness 1.0 cm 0.6 - 1.0 / 0.6 - 0.9 cm LVPW Systolic Thickness 1.0 cm LVOT Diameter 2.1 cm LV Ejection Fraction 2D Teich 15.0 % LV Ejection Fraction MOD 4C 52.2 % LV Ejection Fraction MOD 2C 47.9 % LV Ejection Fraction 2C AL 46.8 % LA Diameter 5.0 cm RA Systolic Volume 4C AL 37.4 ml RA Systolic Volume 4C MOD 35.4 ml LA Sys Volume AL 50.5 cm cubed LA Sys Volume Index AL 21.3 cm cubed/m squared Aorta at Sinotubular Diameter 2.9 cm IVC Diameter 1.8 cm M-MODE LA Ao Ratio MM 1.2 AV Cusp Separation MM 2.1 cm DOPPLER AV Peak Velocity 103.0 cm/s LVOT Peak Velocity 86.0 cm/s AV Area Cont Eq vti 3.0 cm squared AV Area Cont Eq pk 2.8 cm squared MV Peak Velocity 94.0 cm/s MV Area PHT 3.1 cm squared Mitral E to A Ratio 1.1 TV Peak Velocity 165.5 cm/s TR Peak Velocity 240.0 cm/s TR Peak Gradient 23.0 mmHg TV Peak E Velocity 63.0 cm/s PV Peak Velocity 104.0 cm/s FINDINGS Left Ventricle Normal left ventricular size, systolic function and wall thickness, with no regional wall motion abnormalities. Left ventricular ejection fraction is estimated at 55 %. Grade II/IV diastolic dysfunction, moderately elevated filling pressures. Right Ventricle Normal right ventricular size and systolic function. Right Atrium Normal right atrial size. Left Atrium Mildly increased left atrial size. IA Septum Normal appearance of the interatrial septum. Mitral Valve Moderately thickened mitral valve. No mitral valve stenosis. Mild mitral valve regurgitation. Aortic Valve Moderate aortic valve calcification. No aortic valve stenosis. Mild aortic valve regurgitation. Tricuspid Valve Normal tricuspid valve structure. No tricuspid valve stenosis or regurgitation. Normal pulmonary pressure. Pulmonic Valve Normal pulmonic valve structure. No pulmonic valve stenosis or regurgitation. Pericardium No pericardial effusion. Aorta Normal diameter of the aortic root and ascending thoracic aorta. IVC Normal IVC diameter. CONCLUSIONS Normal left ventricular size, systolic function and wall thickness with ejection fraction of _ %. Normal right ventricular size and systolic function. Moderately thickened mitral valve. No mitral valve stenosis. Mild mitral valve regurgitation. Moderate aortic valve calcification. No aortic valve stenosis. Mild aortic valve regurgitation. There is no pericardial effusion. Right atrial pressure is around 5 mm of mercury. Zarina Timmons MD (Electronically Signed) Final Date: 20 July 2025 07:45 S
--- NOTE | 2025-07-17 08:54 | NMCV_ITS ---
NM ck perf SPECT r/s* [id number] Sam Henson Age: 65 Gender: M : 1960 Exam Date: 07/17/2025 09:29 Ordering Phys: María Renee NP Technologist: LARISA Kim Exam Location: [facility] Indications: cp STRESS TEST Please [facility] IMAGE PROTOCOL Rest/Stress 1 Lexiscan Day Radiopharmaceutical Dose (mCi) Administration Site Administered by Rest: Tc-99m 11 IV Britt Crespo, HOLD WORKER Sestamibi Stress:Tc-99m 32.9 IV Britt Limagle, HOLD WORKER Sestamibi Rest: 17-Jul-2025 60 Discovery 630 Stress: 17-Jul-2025 30 Discovery 630 0.4mg Lexiscan. Supine position only as patient was unable to lay prone. SPECT RESULTS Technical Quality: Good Raw Data Analysis: Normal Image Corrections: No attenuation or motion correction applied Summed Stress Score: 4 Summed Rest Score: 6 Summed Difference Score: 0 PERFUSION FINDINGS Large area of fixed perfusion defect noted in basal to distal inferolateral wall suggestive of possible old myocardial infarction in circumflex territory. FUNCTIONAL RESULTS (calculated via Gated SPECT) Stress Image LV EF (%): 56 Stress EDV (mL):110 TID: 0.74 Stress ESV (mL):48 FUNCTIONAL FINDINGS: There is normal left ventricular systolic function. IMPRESSIONS Large area of old myocardial infarction noted in basal to distal inferolateral wall without paty-infarct ischemia. It is suggestive of old myocardial infarction and no significant new ischemia Zarina Timmons MD (Electronically Signed) Final Date: 19 July 2025 08:03 S
--- NOTE | 2025-07-17 08:54 | ECG_ITS ---
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 The perfusion scan will be documented separately. DATA: Baseline heart rate was 62 beats per minute. Baseline blood pressure was 158/71 millimeters of mercury. Target heart rate was 154. Maximum heart rate achieved was 86. which was 55% of the predicted target heart rate. Maximum blood pressure was 158/97 millimeters of mercury. The reason for ending the test was completion of the protocol. The patient did not experience any symptoms. ELECTROCARDIOGRAM: BASELINE: Sinus rhythm. Normal axis. Otherwise, no ST-T changes suggestive of ischemia noted. No arrhythmia noted. EXERCISE: After Lexiscan injection, no ST-T changes suggestive of ischemic noted. Frequent PVCs noted CONCLUSION: Please note due to baseline abnormality of the EKG specificity and sensitivity of the EKG portion of LexiScan MIBI stress test will be low 1. EKG not suggestive of ischemia 2. Lexiscan injection unremarkable. 3. Perfusion scan will be documented separately. Electronically Signed On 07-23-2025 18:14:30 [employer] NET OR TRAP by KRISTOPHER ROA [id number] [id number]
[2025-07-17 10:02] VITALS: BMI 39.1
[2025-07-17 10:35] VITALS: BP 136/95; PULSE 63
== END 2025-07-17 07:47 | disposition home or self-care (01) ==
LOC: RAD 07:50 → CDL 08:55
PROVIDERS: PCP Nurse Practitioner; Visit Provider Nurse Practitioner Family
DX: R07.9 Chest pain, unspecified (principal); I20.89 Other forms of angina pectoris; I25.2 Old myocardial infarction; R94.39 Abnormal result of other cardiovascular function study
CPT/HCPCS: 36415; 78452; 93017; 93306; 96374; A9500; J2785

== ENCOUNTER → 2025-07-21 07:54 | Outpatient (BNVA) | payer MEDICARE, SELFPAY | PROVIDERS: PCP Nurse Practitioner; Visit Provider Nurse Practitioner Family | DX: I25.10 Atherosclerotic heart disease of native coronary artery without angina pectoris (principal); M54.89 Other dorsalgia; I10 Essential (primary) hypertension; Z87.891 Personal history of nicotine dependence | CPT/HCPCS: 99214 ==

== ENCOUNTER 2025-07-26 06:50 | Outpatient (CLI) | payer MEDICARE, SELFPAY ==
--- NOTE | 2025-07-26 07:15 | USCV_ITS ---
aSm Henson Age: 65 Gender: M : 1960 Exam Date: 07/26/2025 07:08 Ordering Phys: Kellie Carrera Technologist: Exam Location: [facility] [place] Indication: aneurysm HISTORY: Diameter (cm) AP x Transverse x Length Velocity (cm/s) Waveform Prox Aorta: 2.20 x 2.60 x 70.20 Mid Aorta: 2.20 x 2.90 x 71.50 Distal Aorta: 2.30 x 2.90 x 78.80 Right Iliac Prox: 0.80 x 1.10 x 87.40 Left Iliac Prox: 1.30 x 1.30 x 82.50 Stent Prox Landing x x Aneurysmal Sac Max x x Lt Lat Sac Dim Rt Lat Sac Dim Stent Dist Landing x x Right Iliac Stent x x Left Iliac Stent x x Right Renal Art Left Renal Art FINDINGS: TDS due to gas and habitus CONCLUSIONS No evidence of abdominal aortic or bilateral iliac aneurysm. Mild aortic atheromatous disease Bro Madrid MD (Electronically Signed) Final Date: 26 July 2025 10:06 S
== END 2025-07-26 06:51 | disposition home or self-care (01) ==
LOC: RAD 06:52
PROVIDERS: PCP Nurse Practitioner; Visit Provider Nurse Practitioner Family
DX: I71.43 Infrarenal abdominal aortic aneurysm, without rupture (principal); I70.0 Atherosclerosis of aorta
CPT/HCPCS: 93978